=== PATIENT | female | born 1945 | race Caucasian/White ===

== ENCOUNTER 2019-09-12 13:50 | Outpatient (CLI) | payer MEDICARE, SELFPAY ==
--- NOTE | ~2019-09-12 | XR_ITS ---
EXAMINATION: XR shoulder LT min 2V DATE: 09/12/2019 14:14 INDICATION: Left upper arm pain. TECHNIQUE: 4 views of left shoulder were obtained. COMPARISON: None. FINDINGS: Bone alignment is normal. No fracture. There is mild osteoarthritis of glenohumeral joint a nd acromioclavicular joint. IMPRESSION: 1. Mild polyarticular osteoarthritis. Reviewed, dictated and finalized at location E.
== END 2019-09-12 13:51 | disposition home or self-care (01) ==
PROVIDERS: PCP Family Medicine; Visit Provider Family Medicine
DX: M79.602 Pain in left arm (principal); M19.012 Primary osteoarthritis, left shoulder
CPT/HCPCS: 73030

== ENCOUNTER 2020-09-17 13:25 | Outpatient (CLI) | payer MEDICARE, SELFPAY ==
--- NOTE | ~2020-09-17 | XR_ITS ---
XR lumbar spine 2-3V 09/17/2020 13:48 Indication: Chronic low back pain Procedure: 3 views lumbar spine Comparison: 12/08/2015 Findings: Mild dextrocurvature of the lumbar spine centered at L4. There is disc narrowing and endpla te hypertrophy at all lumbar levels. There is moderate-severe multilevel facet hypertrophy. No acute fracture or traumatic malalignment. Stable mild superior endplate compression deformity of L1, chroni c. There is atherosclerosis. Impression: 1: Severe lumbar spondylosis. 2: Mild chronic superior endplate compression deformity of L1. Reviewed, dictated and finalized at location A. Impression: 1: Severe lumbar spondylosis. 2: Mild chronic superior endplate compression deformity of L1.
== END 2020-09-17 13:26 | disposition home or self-care (01) ==
LOC: ANHIMG 13:33
PROVIDERS: PCP Family Medicine; Visit Provider Family Medicine
DX: M47.816 Spondylosis without myelopathy or radiculopathy, lumbar region (principal)
CPT/HCPCS: 72100

== ENCOUNTER → 2020-12-30 11:25 | Outpatient (CLI) | payer MEDICARE, SELFPAY ==
--- NOTE | ~2020-12-30 | US_ITS ---
EXAMINATION: US thyroid DATE: 12/30/2020 11:58 INDICATION: Hypothyroidism, unspecified. TECHNIQUE: Multiple ultrasound images of the thyroid were obtained. COMPARISON: Ultrasound 10/13/2017 FINDINGS: The right thyroid lobe measures 4.3 x 2.0 x 1.4 cm. The left thyroid lobe measures 3.8 x 1.7 x 1.4 c m. In the left thyroid lobe, there is a 5 mm solid, very hypoechoic, gjovc-slma-tpgf nodule with smo oth margin without echogenic foci (TI-RADS TR4). In the right thyroid lobe, there is a 5 mm solid, hy poechoic, tzyeq-feef-hakg nodule with smooth margin without echogenic foci (TR4). In the right thyroi d lobe, there is a 7 mm solid, hypoechoic, acmic-xefr-ztew nodule with lobulated margin without echog enic foci (TR4). IMPRESSION: 1. Small thyroid nodules, likely not clinically significant. No follow-up is needed. Reviewed, dictated and finalized at location A. IMPRESSION: 1. Small thyroid nodules, likely not clinically significant. No follow-up is ne eded.
== END ==
PROVIDERS: Visit Provider Internal Medicine Endocrinology, Diabetes & Metabolism
DX: E03.9 Hypothyroidism, unspecified (principal); M85.80 Other specified disorders of bone density and structure, unspecified site; E04.2 Nontoxic multinodular goiter
CPT/HCPCS: 76536

== ENCOUNTER → 2021-03-01 12:52 | Outpatient (CLI) | payer MEDICARE, SELFPAY ==
--- NOTE | ~2021-03-01 | DEXA_ITS ---
Bone Density Report Name: Idania Feliciano Age: 75 Sex: Female Ethnicity: White Date of : 1945 Indication: postmenopausal; screening for osteoporosis; height loss; inflammatory bowel disease; prior fracture; hysterectomy; Referring Provider: Veronica Beal Study: Bone densitometry was performed. Exam Date: March 01, 2021 Accession number: [id number] Bone Density: Region BMD T-score Z-score Classification AP Spine (L1, L2) 1.216 2.2 4.5 Normal Femoral Neck (Left) 0.710 -1.3 0.9 Osteopenia Total Hip (Left) 0.935 -0.1 1.8 Normal Femoral Neck (Right) 0.652 -1.8 0.3 Osteopenia Total Hip (Right) 0.859 -0.7 1.1 Normal Total Hip Mean 0.897 -0.4 1.5 Normal World Health Organization criteria for BMD impression classify patients as: Normal (T-score at or above -1.0), Osteopenia (T-score between -1.0 and -2.5), or Osteoporosis (T-score at or below -2.5). 10-year Fracture Risk: FRAX not reported because: Prior hip or vertebral fracture Treated for osteoporosis Clinical Information Provided by Patient: Have had a previous hip or vertebral fracture Has had a low trauma fracture Is being treated for osteoporosis Has used the following medications: HRT (i.e. estrogen/hormone therapy), Vitamin D, Calcium Has the following medical conditions: Inflammatory bowel diseases, Hysterectomy, Hx of Leukemia Patient maximum height was 67.5 Menopause Age: 45 Drinks caffeinated beverages Onset of menses at age 16 Number of children 3 Impression: The patient has low bone mass, based on the Right Femoral Neck T-score. The patient has risk factors, including: previous fracture. Discussion: It is important to ask patients whether they are taking their medications and to encourage continued and appropriate compliance with their osteoporosis therapies to reduce fracture risk. It is also important to review their risk factors and encourage appropriate calcium and vitamin D intakes, exercise, fall prevention and other lifestyle measures. Follow-Up: Consider a repeat BMD and Vertebral Fracture Assessment (VFA) exam in 2 years or sooner if medically necessary, to reassess this patient's status. Reported by: CHRIS on 03/01/2021 1:57:00 PM. Reviewed, dictated and finalized at location Jayy SALINAS
== END ==
PROVIDERS: PCP Family Medicine; Visit Provider Internal Medicine Endocrinology, Diabetes & Metabolism
DX: M85.88 Other specified disorders of bone density and structure, other site (principal); E03.9 Hypothyroidism, unspecified; E04.1 Nontoxic single thyroid nodule
CPT/HCPCS: 77080

== ENCOUNTER 2021-07-02 07:23 | Emergency (ER) | payer MEDICARE, SELFPAY ==
--- NOTE | ~2021-07-02 | XR_ITS ---
EXAMINATION: XR elbow LT min 3V DATE: 07/02/2021 08:16 INDICATION: Left elbow pain and swelling. TECHNIQUE: 4 views of left elbow were obtained. COMPARISON: None. FINDINGS: Bone alignment is normal. No fracture. There is mild elbow joint osteoarthritis. There is a n enthesophyte at lateral humeral epicondyle. There is no elbow joint effusion. IMPRESSION: 1. Mild elbow joint osteoarthritis. Reviewed, dictated and finalized at location A. 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
--- NOTE | ~2021-07-02 | CT_ITS ---
EXAMINATION: CT abdomen pelvis w con DATE: 07/02/2021 09:00 INDICATION: Left lower quadrant abdominal pain. TECHNIQUE: Computed tomography (CT) of the abdomen and pelvis was performed with 100 mL Omnipaque 350 intravenous contrast. Automated exposure control and iterative reconstruction technique were employe d. The dose-length product was 1117.34 mGy-cm. COMPARISON: CT abdomen and pelvis 02/20/2016 FINDINGS: The visualized portions of the lung bases demonstrate mild atelectasis. There are 2 chronic nodules in right middle lobe with the larger measuring 5 mm, likely benign. No pleural effusion. The heart size is normal. No pericardial effusion. There is a small sliding hiatal hernia. The liver, ga llbladder, spleen, pancreas, adrenal glands, and kidneys are normal. There are scattered diverticula in the colon. There is fat stranding around a diverticulum of sigmoid colon, consistent with divertic ulitis. There are no dilated loops of bowel. The appendix is normal. There are no pathologically enla rged lymph nodes. There is no free intraperitoneal fluid. There is lumbar dextrocurvature and severe spondylosis. There is a chronic compression fracture of L1. IMPRESSION: 1. Mild acute sigmoid diverticulitis. No perforation or abscess. 2. Small sliding hiatal hernia. Reviewed, dictated and finalized at location A. 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
[2021-07-02 07:28] VITALS: BP 148/104; PULSE 105; RESP 18; TEMP 36.1; O2SAT 97
[2021-07-02 08:13] LABS: Basophils Absolute Auto 0.1 K/mm3 (0.0-0.1); Basophils Percent Auto 0.8 % (0.2-1.2); Eosinophils Absolute Auto 0.4 K/mm3 (0-0.3); Eosinophils Percent Auto 6.1 % (0-4.4); Hematocrit 40.6 % (37.0-47.0); Hemoglobin 13.4 g/dL (12.0-15.0); Immature Granulocyte Absolute 0.03 K/mm3 (0.00-0.031); Immature Granulocyte Percent A 0.5 % (0-0.5); Lymphocytes Absolute Auto 1.25 K/mm3 (0.9-3.2); Mean Corpuscular Hemoglobin 30.6 pg (26-34); Mean Corpuscular Volume 92.7 fl (80-100); Mean Platelet Volume 9.6 fl (7.4-10.4); Monocytes Absolute Auto 0.6 K/mm3 (0.1-0.6); Monocytes Percent Auto 8.8 % (2.6-8.5); Neutrophils Percent Auto 63.8 % (45.5-73.1); Platelet Count Result 318 k/mm3 (150-375); Red Blood Count 4.38 M/mm3 (4.2-5.4); Red Cell Distribution Width 12.5 % (11.5-14.5); White Blood Count 6.3 K/mm3 (4.5-10.0)
[2021-07-02 08:24] LABS: Alanine Aminotransferase 17 U/L (4-35); Albumin Level 3.7 g/dL (3.5-5.1); Alkaline Phosphatase 66 U/L (38-126); Anion Gap 3 mmol/L (8-16); Aspartate Amino Transferase 22 U/L (14-36); Bilirubin,Total 0.4 mg/dL (0.2-1.3); Blood Urea Nitrogen 10 mg/dL (7-17); Calcium 8.9 mg/dL (8.4-10.2); Carbon Dioxide 30 mmol/L (22-30); Chloride 103 mmol/L (98-107); Estimated CRCL calculation 60 ml/min; Estimated Glomerular Filt Rate > 60; Glucose 109 mg/dL (65-110); Lipase 38 U/L (23-300); Potassium 4.7 mmol/L (3.4-5.0); Sodium 136 mmol/L (137-145)
[2021-07-02] MEDS: SODIUM CHLORIDE 0.9% IV 1,000 ML 999 ML IV CONT (08:36)
[2021-07-02] MEDS: MORPHINE SULFATE (*CRX) 4 MG/ML INJ IV PUSH (08:37)
[2021-07-02] MEDS: ONDANSETRON INJ 4 MG/2 ML VIAL IV PUSH (08:37)
--- NOTE | 2021-07-02 10:39 | ED.GENADULT ---
HPI - General Adult General Chief complaint: Back Pain/Injury Stated complaint: BACK PAIN Time Seen by Provider: 07/02/21 07:35 History of Present Illness HPI narrative: Patient is a 76-year-old female who presents ER with left-sided abdominal pain. Sharp and rating to left back. Intermittent over the last 2 weeks with a couple days of resolution. It returned 3 days ago and has possibly worsened. Cannot move without having pain. Has history of diverticulitis. No diarrhea or fevers or chills or sweats. Has not been on any antibiotics. Patient also reports some mild elbow pain after lifting a heavy bag last week. Has some chronic swelling to the area but also feels like it is larger than typical. Maintains full range of motion. No numbness or tingling. Related Data Home Medications Medication Instructions Recorded Confirmed ascorbic acid (vitamin C) 1,000 mg 1,000 mg PO Q12H 05/06/19 10/14/20 tablet,extended release cholecalciferol (vitamin D3) 100 4,000 unit PO DAILY 05/06/19 10/14/20 mcg (4,000 unit) capsule chromium picolinate 400 mcg tablet 400 mcg PO DAILY 05/06/19 10/14/20 dextrin 3 gram/3.5 gram oral powder 3 gm PO TID 05/06/19 10/14/20 melatonin 5 mg disintegrating mg PO 05/06/19 10/14/20 tablet milk thistle 150 mg capsule 150 mg PO BID 05/06/19 10/14/20 omega 1-flk-faz-fish oil 1,000 mg 1 cap PO DAILY 05/06/19 10/14/20 (120 mg-180 mg) capsule omeprazole magnesium 20 mg 20 mg PO DAILY 05/06/19 10/14/20 tablet,delayed release vit B complex 100 combo no.2 100 tablet PO 05/06/19 10/14/20 mg tablet,extended release zinc acetate 50 mg (zinc) capsule 50 mg PO DAILY 05/06/19 10/14/20 calcium carbonate 1,000 tablet PO 06/10/19 10/14/20 mg-magnesium hydroxide 200 mg chewable tablet cetirizine 10 mg tablet 5 mg PO DAILY PRN 06/10/19 10/14/20 flaxseed oil 1,000 mg capsule 1,000 mg PO DAILY 06/10/19 10/14/20 loratadine 10 mg capsule 10 mg PO DAILY 06/10/19 10/14/20 mecobalamin (vitamin B12) 1,000 1,000 mcg SUBLINGUAL DAILY 06/10/19 10/14/20 mcg disintegrating tablet,sublingual aspirin 500 mg tablet 500 mg PO DAILY 07/13/20 10/14/20 coenzyme Q10 100 mg capsule 100 mg PO DAILY 07/13/20 10/14/20 lactobacillus combination no.9 4 4,000 mmu cells PO DAILY 07/13/20 10/14/20 billion cell capsule olive leaf extract 250 mg capsule 500 mg PO DAILY cap 07/13/20 10/14/20 Allergies Allergy/AdvReac Type Severity Reaction Status Date / Time bee venom protein (honey bee) Allergy Unknown Unknown Verified 07/13/20 14:56 ciprofloxacin Allergy Unknown Unknown Verified 07/13/20 14:56 codeine Allergy Unknown Unknown Verified 07/13/20 14:56 hydrocodone Allergy Unknown Unknown Verified 07/13/20 14:56 metronidazole Allergy Unknown Rash Verified 07/13/20 14:56 Penicillins Allergy Unknown Skin Verified 07/13/20 14:56 irritation levothyroxine AdvReac Severe palpitation Verified 07/13/20 14:56 s NKFA Allergy Unknown Unknown Uncoded 07/13/20 14:56 Review of Systems Review of Systems: All systems reviewed & are unremarkable except as noted in HPI and below Constitutional: Constitutional: Denies chills, Denies fever(s) and Denies weakness ENT: Denies nasal congestion and Denies sore throat Cardiovascular: Cardiovascular: Denies chest pain, Denies rapid heart rate and Denies radiating jaw, neck or arm pain Respiratory: Respiratory: Denies cough and Denies dyspnea Gastrointestinal: Gastrointestinal: Reports abdominal pain, Denies diarrhea, Denies nausea and Denies vomiting Musculoskeletal: Musculoskeletal: Reports back pain, Reports arthralgias, Reports joint swelling and Denies muscle cramps Neurologic: Denies focal weakness and Denies numbness PMFSH Past Medical History Medical History (Updated 07/02/21 @ 10:40 by Ha Bernstein MD) CML in remission Diverticulosis Hyperlipidemia Hypertension Hypothyroidism Prediabetes Surgical History Surgical History (Reviewed 07/13/20 @ 17:05 by Waqar Ohara
[2021-07-02 10:50] VITALS: BP 149/80; PULSE 80; RESP 18; O2SAT 96
== END 2021-07-02 10:51 | disposition home or self-care (01) ==
PROVIDERS: Emergency Provider Emergency Medicine; PCP Family Medicine
DX: K57.32 Diverticulitis of large intestine without perforation or abscess without bleeding (principal); C92.11 Chronic myeloid leukemia, BCR/ABL-positive, in remission; R78.5 Finding of other psychotropic drug in blood; I10 Essential (primary) hypertension; E03.9 Hypothyroidism, unspecified; R73.03 Prediabetes; M19.022 Primary osteoarthritis, left elbow; K44.9 Diaphragmatic hernia without obstruction or gangrene; Z79.82 Long term (current) use of aspirin
CPT/HCPCS: 36415; 73080; 74177; 80053; 83690; 85025; 96361; 96374; 96375; 99284; J2270; J2405; J7030; Q9967

== ENCOUNTER 2021-07-07 09:50 | Outpatient (CLI) | payer MEDICARE, SELFPAY ==
--- NOTE | ~2021-07-07 | XR_ITS ---
XR humerus LT DATE: 07/07/2021 10:05 INDICATION: Left arm midshaft pain, anterior bruising following lifting a heavy object TECHNIQUE: AP and lateral projections, 3 total views COMPARISON: 07/02/2021 left elbow FINDINGS: There is osteopenia. No fracture or dislocation, periosteal reaction or bone destruction of the left humerus. Normal alignment of the acromioclavicular, glenohumeral and elbow joints. There is evidence of rotato r cuff atrophy. IMPRESSION: No fracture or dislocation Osteopenia Reviewed, dictated and finalized at location A.
== END 2021-07-07 09:51 | disposition home or self-care (01) ==
PROVIDERS: PCP Family Medicine; Visit Provider Physician Assistant
DX: M79.602 Pain in left arm (principal); M85.822 Other specified disorders of bone density and structure, left upper arm
CPT/HCPCS: 73060

== ENCOUNTER 2021-08-23 01:52 | Day surgery (SDC) | payer MEDICARE, SELFPAY ==
[2021-08-10 10:13] VITALS: BMI 32.3
--- NOTE | 2021-08-23 07:20 | WPDGICN ---
Assessment and Plan Assessment and plan (1) Colon cancer screening: Code(s): Z12.11 - Encounter for screening for malignant neoplasm of colon Status: Acute Assessment and Plan: Colonoscopy with possible biopsy or polypectomy or cautery or injection of substances. (2) Diverticulitis: Code(s): K57.92 - Diverticulitis of intestine, part unspecified, without perforation or abscess without bleeding Status: Acute GI Consult Note Consult date/time: 08/23/21 07:20 HPI: Idania Feliciano is a 76 year old female Who was recently seen in the emergency room with left lower quadrant abdominal pain. CT scan did show evidence of diverticulitis. She was treated with antibiotics But had a reaction to them. She has however improved.. She states she has had previous episodes of diverticulitis. Review of Systems Review of Systems: All systems reviewed & are unremarkable except as noted in HPI and below PMFSH Past Medical History Medical History CML in remission Diverticulosis (~2017) GERD (gastroesophageal reflux disease) History of stress test Hyperlipidemia Hypertension Hypothyroidism Prediabetes Surgical History Surgical History S/P CHCAE (total abdominal hysterectomy) Status post open reduction with internal fixation (ORIF) of fracture of ankle Family History Family History Mother Diabetes mellitus Family history of cardiovascular disease Family history of congestive heart failure Family history of diabetes mellitus in first degree relative Family history of heart disease in male family member before age 55 Father Family history of Parkinson's disease Grandparent Family history of congestive heart failure Family history of heart disease in male family member before age 55 Sibling Family history of diabetes mellitus in first degree relative Social History Social History Smoking status: Never smoker Second hand tobacco smoke exposure: No Alcohol intake: never Substance use: never Substance use type: does not use Living arrangements: with family Gender identity (if verbalized by the patient): Female Spiritual care concerns: Yes Agree to blood products: No Meds Home Medications and Allergies Home Medications Medication Instructions Recorded Confirmed Type ascorbic acid (vitamin C) 1,000 mg 1,000 mg PO Q12H 05/06/19 08/23/21 History tablet,extended release cholecalciferol (vitamin D3) 100 4,000 unit PO DAILY 05/06/19 08/23/21 History mcg (4,000 unit) capsule chromium picolinate 400 mcg tablet 400 mcg PO DAILY 05/06/19 08/23/21 History dextrin 3 gram/3.5 gram oral powder 3 gm PO TID 05/06/19 08/23/21 History melatonin 5 mg disintegrating 5 mg PO DAILY 05/06/19 08/23/21 History tablet milk thistle 150 mg capsule 150 mg PO BID 05/06/19 08/23/21 History omega 9-fbk-czb-fish oil 1,000 mg 1 cap PO DAILY 05/06/19 08/23/21 History (120 mg-180 mg) capsule omeprazole magnesium 20 mg 20 mg PO DAILY 05/06/19 08/23/21 History tablet,delayed release vit B complex 100 combo no.2 100 1 tablet PO DAILY 05/06/19 08/23/21 History mg tablet,extended release zinc acetate 50 mg (zinc) capsule 50 mg PO DAILY 05/06/19 08/23/21 History calcium carbonate 1,000 1 tablet PO DAILY 06/10/19 08/23/21 History mg-magnesium hydroxide 200 mg chewable tablet cetirizine 10 mg tablet 5 mg PO DAILY PRN 06/10/19 08/23/21 History flaxseed oil 1,000 mg capsule 1,000 mg PO DAILY 06/10/19 08/23/21 History loratadine 10 mg capsule 10 mg PO DAILY 06/10/19 08/23/21 History mecobalamin (vitamin B12) 1,000 1,000 mcg SUBLINGUAL DAILY 06/10/19 08/23/21 History mcg disintegrating tablet,sublingual estradiol 0.05 mg/24 hr semiweekly 1 patch TRANSDERMAL 2XW #8 each
[2021-08-23 10:08] VITALS: BP 147/85; PULSE 101; RESP 18; TEMP 36.2; O2SAT 96
[2021-08-23] MEDS: LACTATED RINGERS 1,000 ML 150 ML IV CONT (10:11)
--- NOTE | 2021-08-23 10:38 | WPDANESEPPF ---
Anes - Initial Pre Proc Eval Procedure: Operation Date: 08/23/21 11:00 Proposed Procedures p Colonoscopy - Syd Kirkpatrick MD Date/Time: 08/23/21 10:38 Surgeon: Syd Kirkpatrick MD Pre Op Diagnosis: diverticulitis Patient Data Age: 76 Gender: F Height: 1.68 m Weight: 87.5 kg Last Vital Signs Temp 97.1 F L 08/23/21 10:08 Pulse 101 H 08/23/21 10:08 Resp 18 08/23/21 10:08 BP 147/85 H 08/23/21 10:08 Pulse Ox 96 08/23/21 10:08 Allergies Allergy/AdvReac Type Severity Reaction Status Date / Time bee venom protein (honey bee) Allergy Unknown Unknown Verified 08/23/21 10:07 ciprofloxacin Allergy Unknown Unknown Verified 08/23/21 10:07 codeine Allergy Unknown Unknown Verified 08/23/21 10:07 hydrocodone Allergy Unknown Unknown Verified 08/23/21 10:07 metronidazole Allergy Unknown Rash Verified 08/23/21 10:07 Penicillins Allergy Unknown Skin Verified 08/23/21 10:07 irritation levothyroxine AdvReac Severe palpitation Verified 08/23/21 10:07 s Home Medications Medication Instructions Recorded Confirmed Type ascorbic acid (vitamin C) 1,000 mg 1,000 mg PO Q12H 05/06/19 08/23/21 History tablet,extended release cholecalciferol (vitamin D3) 100 4,000 unit PO DAILY 05/06/19 08/23/21 History mcg (4,000 unit) capsule chromium picolinate 400 mcg tablet 400 mcg PO DAILY 05/06/19 08/23/21 History dextrin 3 gram/3.5 gram oral powder 3 gm PO TID 05/06/19 08/23/21 History melatonin 5 mg disintegrating 5 mg PO DAILY 05/06/19 08/23/21 History tablet milk thistle 150 mg capsule 150 mg PO BID 05/06/19 08/23/21 History omega 8-vqm-jqb-fish oil 1,000 mg 1 cap PO DAILY 05/06/19 08/23/21 History (120 mg-180 mg) capsule omeprazole magnesium 20 mg 20 mg PO DAILY 05/06/19 08/23/21 History tablet,delayed release vit B complex 100 combo no.2 100 1 tablet PO DAILY 05/06/19 08/23/21 History mg tablet,extended release zinc acetate 50 mg (zinc) capsule 50 mg PO DAILY 05/06/19 08/23/21 History calcium carbonate 1,000 1 tablet PO DAILY 06/10/19 08/23/21 History mg-magnesium hydroxide 200 mg chewable tablet cetirizine 10 mg tablet 5 mg PO DAILY PRN 06/10/19 08/23/21 History flaxseed oil 1,000 mg capsule 1,000 mg PO DAILY 06/10/19 08/23/21 History loratadine 10 mg capsule 10 mg PO DAILY 06/10/19 08/23/21 History mecobalamin (vitamin B12) 1,000 1,000 mcg SUBLINGUAL DAILY 06/10/19 08/23/21 History mcg disintegrating tablet,sublingual estradiol 0.05 mg/24 hr semiweekly 1 patch TRANSDERMAL 2XW #8 each 06/10/20 08/23/21 Rx transdermal patch aspirin 500 mg tablet 500 mg PO DAILY 07/13/20 08/23/21 History coenzyme Q10 100 mg capsule 100 mg PO DAILY 07/13/20 08/23/21 History lactobacillus combination no.9 4 4,000 mmu cells PO DAILY 07/13/20 08/23/21 History billion cell capsule olive leaf extract 250 mg capsule 500 mg PO DAILY cap 07/13/20 08/23/21 History ramipril 10 mg capsule 10 mg PO DAILY #90 cap 07/13/20 08/23/21 Rx hydrocodone-acetaminophen 1 tablet PO Q6H PRN #10 tablet 07/02/21 08/23/21 Rx sulfamethoxazole-trimethoprim 1 tablet PO Q12H #20 tablet 07/02/21 08/23/21 Rx [Bactrim DS] Patient hx anesthesia problems: none Family hx anesthesia problems: none Results Review: All pre-operative results and documents have been reviewed as part of the pre-operative evaluation. [facility] Past Medical History Medical History CML in remission Diverticulosis (~2017) GERD (gastroesophageal reflux disease) History of stress test Hyperlipidemia Hypertension Hypothyroidism Prediabetes Surgical History Surgical History S/P CHACE (total abdominal hysterectomy) Status post open reduction with internal fixation (ORIF) of fracture of ankle Family History Family History Mother Diabetes mellitus Family history of cardiovascular disease
[2021-08-23] MEDS: SIMETHICONE ORAL SUSPENSION 20 MG/0.3 ML 30 ML BOTTLE 0.6 ML IRRIGATION (10:59)
[2021-08-23 11:14] VITALS: BP 136/72; PULSE 78; RESP 20; O2SAT 96
[2021-08-23 11:24] VITALS: BP 140/97; PULSE 74; RESP 20; O2SAT 96
[2021-08-23 11:34] VITALS: BP 129/68; PULSE 76; RESP 18; O2SAT 97
== END 2021-08-23 12:04 | disposition home or self-care (01) ==
PROVIDERS: PCP Family Medicine; Visit Provider Internal Medicine Gastroenterology
PROC: 0DJD8ZZ Inspection of Lower Intestinal Tract, Via Natural or Artificial Opening Endoscopic (ICD-10-PCS; CPT 45378; principal; 2021-08-23 11:00)
DX: Z12.11 Encounter for screening for malignant neoplasm of colon (principal); K57.30 Diverticulosis of large intestine without perforation or abscess without bleeding; C92.11 Chronic myeloid leukemia, BCR/ABL-positive, in remission; Z79.82 Long term (current) use of aspirin; K21.9 Gastro-esophageal reflux disease without esophagitis; E03.9 Hypothyroidism, unspecified; I10 Essential (primary) hypertension; E78.5 Hyperlipidemia, unspecified; R73.03 Prediabetes; E66.9 Obesity, unspecified; Z68.31 Body mass index [BMI] 31.0-31.9, adult
CPT/HCPCS: G0121; J2704; J7120

== ENCOUNTER 2021-10-13 11:33 | Outpatient (CLI) | payer MEDICARE, SELFPAY ==
[2021-10-13 13:47] LABS: Free T4 Free Thyroxine 1.16 ng/mL (0.78-2.19)
[2021-10-15 13:53] LABS: Triiodothyronine T3 Free 2.7 pg/mL (2.3-4.2)
== END 2021-10-13 11:34 | disposition home or self-care (01) ==
LOC: ANHWCLAB 11:35
PROVIDERS: PCP Family Medicine; Referring Provider Internal Medicine Endocrinology, Diabetes & Metabolism; Visit Provider Internal Medicine Endocrinology, Diabetes & Metabolism
DX: E03.9 Hypothyroidism, unspecified (principal); E04.9 Nontoxic goiter, unspecified
CPT/HCPCS: 36415; 84439; 84443; 84481

== ENCOUNTER 2022-05-17 14:32 | Outpatient (CLI) | payer MEDICARE, SELFPAY ==
--- NOTE | ~2022-05-17 | MM_ITS ---
EXAMINATION: MM screening brian BI w shawna HISTORY: Screening mammogram TECHNIQUE: Craniocaudal and mediolateral oblique 3-D tomosynthesis images were obtained and synthetic 2-D images were generated. CAD analysis was submitted and interpreted. COMPARISON: 11/02/2018, 09/02/2015, 03/07/2014 bilateral screening mammogram examinations BREAST PARENCHYMAL COMPOSITION: There are scattered areas of fibroglandular density. FINDINGS: There are scattered bilateral benign appearing calcifications. There is one apparently new cluster of grouped microcalcifications in the inner mid right breast which are indeterminate on this screening examination; diagnostic right mammogram with magnification views is recommended for more de finitive evaluation. Otherwise there is no evidence of suspicious mass, calcification, or architectural distortion to sugg est malignancy in either breast. There has been no other suspicious interval change. IMPRESSION: 1. Indeterminate new grouped microcalcifications in the inner mid right breast 2. Diagnostic right mammogram with magnification views is recommended BI-RADS Category 0: Incomplete: Needs additional imaging evaluation. Reviewed, dictated and finalized at location A. ICE GIRL
== END 2022-05-17 14:33 | disposition home or self-care (01) ==
PROVIDERS: PCP Family Medicine; Visit Provider Family Medicine
DX: Z12.31 Encounter for screening mammogram for malignant neoplasm of breast (principal); R92.8 Other abnormal and inconclusive findings on diagnostic imaging of breast
CPT/HCPCS: 77063; 77067

== ENCOUNTER 2022-06-10 11:09 | Outpatient (CLI) | payer MEDICARE, SELFPAY ==
--- NOTE | ~2022-06-10 | MMUS_ITS ---
EXAMINATION: MM diagnostic mammo unilat RT, US breast RT limited HISTORY: Indeterminate new grouped microcalcifications reported in inner mid right breast on 3 screening mammogram examination TECHNIQUE: ML 3-D tomosynthesis images of the right breast were performed and synthetic 2-D images we re generated. Magnification views of right breast in ML, MLO and CC projections CAD analysis was subm itted and interpreted. High resolution upper inner and lower inner right quadrant breast ultrasound w as performed. COMPARISON: 05/13/2022 bilateral screening mammogram FINDINGS: MAMMOGRAPHIC FINDINGS: Multiple benign-appearing calcifications are scattered in the breast including some arterial calcific ations as well as some probable partially calcified fibroadenomas. The mammographic calcifications of concern reported on 05/13/2022 in the mid to posterior inner mid ri ght breast, likely fibroadenomatous. Ultrasound correlation was performed of the inner half of the ri ght breast, without significant abnormal finding. 6 month follow-up diagnostic right mammogram is rec ommended. ULTRASOUND: No suspicious mass or shadowing is detected. IMPRESSION: 1. Probable benign calcifications 2. 6 month diagnostic mammogram follow-up is recommended BI-RADS category 3, probably benign findings. Reviewed, dictated and finalized at location A. 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 Probable benign calcifications 2. 6 month diagnostic mammogram follow-up is recommended BI-RADS category 3, probably benign findings.
== END 2022-06-10 11:10 | disposition home or self-care (01) ==
PROVIDERS: PCP Family Medicine; Visit Provider Family Medicine
DX: R92.8 Other abnormal and inconclusive findings on diagnostic imaging of breast (principal)
CPT/HCPCS: 76642; 77065

== ENCOUNTER 2022-08-29 16:43 | Emergency (ER) | payer MEDICARE, SELFPAY ==
--- NOTE | ~2022-08-29 | CT_ITS ---
EXAMINATION: CTA chest PE protocol DATE: 08/29/2022 21:08 INDICATION: tachycardia, SOB, ?pulmonary edema TECHNIQUE: Computed tomography angiography (CTA) of the chest was performed with 100 mL Omnipaque-350 intravenous contrast timed to evaluate the pulmonary arteries. Coronal maximum intensity projection 3D-reconstructions were created by the technologist. The dose-length product (DLP) was 375.91 mGy-cm. Automated exposure control and iterative reconstruction technique were employed. COMPARISON: X-ray chest, same date. FINDINGS: Lung parenchyma and airways: Acinar opacities in the left lower lobe. Dependent atelectasis. Mild mot ion artifact. Peribronchial vascular interstitial thickening. Small focus of tree-in-bud opacities in the peripheral right middle lobe. Bilateral lower lobe airway debris. Pleura: Unremarkable. Thoracic inlet, axillae and chest wall: Unremarkable. Thoracic aorta: Mild arch calcification. Mediastinum: Enlarged bilateral hilar and mediastinal lymph nodes. Dilated central pulmonary arteries , as can be seen with pulmonary arterial hypertension. Heart and pericardium: Normal. Coronary artery calcifications: Absent. Upper abdomen: No significant finding. Bones: No acute osseous finding. Pulmonary arteries: Study quality: Adequate. No pulmonary emboli detected. IMPRESSION: No CT evidence of acute pulmonary embolus. Pulmonary opacities likely represent infectious airways disease and/or pneumonitis, likely with a com ponent of aspiration. Mediastinal and bilateral hilar lymphadenopathy. Reviewed, dictated and finalized at location K. IMPRESSION: No CT evidence of acute pulmonary embolus. Pulmonary opacities likely represent infectious airways disease and/or pneumoni tis, likely with a component of aspiration. Mediastinal and bilateral hilar lym phadenopathy.
--- NOTE | ~2022-08-29 | XR_ITS ---
EXAMINATION: XR chest 2V Exam Date/Time: 08/29/2022 18:45 CDT HISTORY: wheezing, cough x 5 days Comparison: 02/28/2014. RESULT: Lines, tubes, and devices: None. Lungs and pleura: Mild reticular opacities and cuffing. Cardiomediastinal silhouette: Stable. Other: No acute osseous or upper abdominal finding. IMPRESSION: Pulmonary opacities may represent mild interstitial edema versus respiratory bronchiolitis Reviewed, dictated and finalized at location K. IMPRESSION: Pulmonary opacities may represent mild interstitial edema versus respiratory br onchiolitis
[2022-08-29 17:04] VITALS: BP 140/90; PULSE 108; RESP 20; TEMP 37.4; O2SAT 97
--- NOTE | 2022-08-29 18:17 | ED.GENADULT ---
HPI - General Adult General Chief complaint: Unspecified Stated complaint: Sore throat Related Data Home Medications Medication Instructions Recorded Confirmed ascorbic acid (vitamin C) 1,000 mg 1,000 mg PO Q12H 05/06/19 08/15/22 tablet,extended release cholecalciferol (vitamin D3) 100 4,000 unit PO DAILY 05/06/19 08/15/22 mcg (4,000 unit) capsule chromium picolinate 400 mcg tablet 400 mcg PO DAILY 05/06/19 08/15/22 dextrin 3 gram/3.5 gram oral 3 gm PO TID 05/06/19 08/15/22 powder (Easy Fiber) melatonin 5 mg disintegrating 5 mg PO DAILY 05/06/19 08/15/22 tablet milk thistle 150 mg capsule 150 mg PO BID 05/06/19 08/15/22 omega 8-fks-ljo-fish oil 1,000 mg 1 cap PO DAILY 05/06/19 08/15/22 (120 mg-180 mg) capsule (Fish Oil) omeprazole magnesium 20 mg 20 mg PO DAILY 05/06/19 08/15/22 tablet,delayed release (Prilosec OTC) vit B complex 100 combo no.2 100 1 tablet PO DAILY 05/06/19 08/15/22 mg tablet,extended release (B-100 Complex ER) zinc acetate 50 mg (zinc) capsule 50 mg PO DAILY 05/06/19 08/15/22 calcium carbonate 1,000 1 tablet PO DAILY 06/10/19 08/15/22 mg-magnesium hydroxide 200 mg chewable tablet cetirizine 10 mg tablet (Zyrtec) 5 mg PO DAILY PRN Allergy Symptoms 06/10/19 08/15/22 mecobalamin (vitamin B12) 1,000 1,000 mcg sublingual DAILY 06/10/19 08/15/22 mcg disintegrating tablet,sublingual aspirin 500 mg tablet 500 mg PO DAILY 07/13/20 08/15/22 coenzyme Q10 100 mg capsule (Co 100 mg PO DAILY 07/13/20 08/15/22 Q-10) lactobacillus combination no.9 4 4,000 mmu cells PO DAILY 07/13/20 08/15/22 billion cell capsule (Adult 50 Plus Probiotic) olive leaf extract 250 mg capsule 500 mg PO DAILY 07/13/20 08/15/22 Anna Glucan Immunition NSC-24 10/13/21 08/15/22 Allergy Formula Beta Carotene BYMOUTH 10/13/21 08/15/22 Hydrolized Collagen 10/13/21 08/15/22 Oil Of Oregano yeast infection BYSCUTH 10/13/21 08/15/22 prevention Sun chlorella BYSCUTH 10/13/21 08/15/22 Allergies Allergy/AdvReac Type Severity Reaction Status Date / Time bee venom protein (honey bee) Allergy Unknown Unknown Verified 08/15/22 13:15 ciprofloxacin Allergy Unknown Rash Verified 08/15/22 13:15 codeine Allergy Unknown Rash Verified 08/15/22 13:15 hydrocodone Allergy Unknown Rash Verified 08/15/22 13:15 metronidazole Allergy Unknown Rash Verified 08/15/22 13:15 Penicillins Allergy Unknown Skin Verified 08/15/22 13:15 irritation levothyroxine AdvReac Severe palpitation Verified 08/15/22 13:15 s PMF Past Medical History Medical History (Updated 08/15/22 @ 13:55 by Lencho Sweeney MD) Allergies Arthritis Blood clotting disorder CML in remission Diverticulosis (~2017) GERD (gastroesophageal reflux disease) History of stress test Hyperlipidemia Hypertension Hypothyroidism IBS (irritable bowel syndrome) Prediabetes Surgical History Surgical History S/P CHACE (total abdominal hysterectomy) Status post open reduction with internal fixation (ORIF) of fracture of ankle Family History Family History (Updated 08/15/22 @ 13:17 by Mercedez Li CMA) Mother Diabetes mellitus Family history of cardiovascular disease Family history of congestive heart failure Family history of diabetes mellitus in first degree relative Family history of heart disease in male family member before age 55 Cerebrovascular accident Father Family history of Parkinson's disease Grandparent Family history of congestive heart failure Family history of heart disease in male family member before age 55 Diabetes mellitus Depression Sibling Family history of diabetes mellitus in first degree relative Social History Social History Smoking status: Never smoker Second hand tobacco smoke exposure: No Alcohol intake: never Substance use: never Substance use type: does not use Living arrangem
--- NOTE | 2022-08-29 18:52 | ED.URI ---
HPI - URI/Sore Throat General Chief Complaint: Upper Respiratory Infection Stated Complaint: Sore throat Time Seen by Provider: 08/29/22 18:31 History of Present Illness HPI Narrative: 77-year-old female here for evaluation of cough, congestion, nasal drainage and sore throat x6 days. Was seen in urgent care, was given cough medicine but states they are not helping. States she has some degree of chronic upper respiratory issues for which she asked her primary to refer her to the ENT. She went to the appointment at the end of July was told she has lots of thick nasal drainage and to use neti pots. States that her cough has been worsening, is productive in nature. Reports some SOB. She denies any chest pain, nausea, vomiting, leg swelling, fevers or chills. Positive sick contacts; patient's friend is sick with similar symptoms. Related Data Home Medications Medication Instructions Recorded Confirmed ascorbic acid (vitamin C) 1,000 mg 1,000 mg PO Q12H 05/06/19 08/15/22 tablet,extended release cholecalciferol (vitamin D3) 100 4,000 unit PO DAILY 05/06/19 08/15/22 mcg (4,000 unit) capsule chromium picolinate 400 mcg tablet 400 mcg PO DAILY 05/06/19 08/15/22 dextrin 3 gram/3.5 gram oral 3 gm PO TID 05/06/19 08/15/22 powder (Easy Fiber) melatonin 5 mg disintegrating 5 mg PO DAILY 05/06/19 08/15/22 tablet milk thistle 150 mg capsule 150 mg PO BID 05/06/19 08/15/22 omega 1-wsz-ejx-fish oil 1,000 mg 1 cap PO DAILY 05/06/19 08/15/22 (120 mg-180 mg) capsule (Fish Oil) omeprazole magnesium 20 mg 20 mg PO DAILY 05/06/19 08/15/22 tablet,delayed release (Prilosec OTC) vit B complex 100 combo no.2 100 1 tablet PO DAILY 05/06/19 08/15/22 mg tablet,extended release (B-100 Complex ER) zinc acetate 50 mg (zinc) capsule 50 mg PO DAILY 05/06/19 08/15/22 calcium carbonate 1,000 1 tablet PO DAILY 06/10/19 08/15/22 mg-magnesium hydroxide 200 mg chewable tablet cetirizine 10 mg tablet (Zyrtec) 5 mg PO DAILY PRN Allergy Symptoms 06/10/19 08/15/22 mecobalamin (vitamin B12) 1,000 1,000 mcg sublingual DAILY 06/10/19 08/15/22 mcg disintegrating tablet,sublingual aspirin 500 mg tablet 500 mg PO DAILY 07/13/20 08/15/22 coenzyme Q10 100 mg capsule (Co 100 mg PO DAILY 07/13/20 08/15/22 Q-10) lactobacillus combination no.9 4 4,000 mmu cells PO DAILY 07/13/20 08/15/22 billion cell capsule (Adult 50 Plus Probiotic) olive leaf extract 250 mg capsule 500 mg PO DAILY 07/13/20 08/15/22 Anna Glucan Immunition [facility] [place]-24 10/13/21 08/15/22 Allergy Formula Beta Carotene BYNJUTH 10/13/21 08/15/22 Hydrolized Collagen 10/13/21 08/15/22 Oil Of Oregano yeast infection BYNJUTH 10/13/21 08/15/22 prevention [facility] 10/13/21 08/15/22 Allergies Allergy/AdvReac Type Severity Reaction Status Date / Time bee venom protein (honey bee) Allergy Unknown Unknown Verified 08/29/22 18:45 ciprofloxacin Allergy Unknown Rash Verified 08/29/22 18:45 codeine Allergy Unknown Rash Verified 08/29/22 18:45 hydrocodone Allergy Unknown Rash Verified 08/29/22 18:45 metronidazole Allergy Unknown Rash Verified 08/29/22 18:45 Penicillins Allergy Unknown Skin Verified 08/29/22 18:45 irritation levothyroxine AdvReac Severe palpitation Verified 08/29/22 18:45 s Review of Systems Review of Systems: Gen: Denies fevers or chills Eyes: Denies eye pain or visual change ENT: Reports congestion Respiratory: Reports cough CV: Denies chest pain or palpitations GI: Denies abdominal pain nausea, emesis or diarrhea : denies burning, urgency, frequency or hematuria Musculoskeletal: Denies back pain or muscle pain Neuro: Denies numbness, tingling, weakness or focal weakness Skin: Denies rash Except as documented, all other systems reviewed and negative PMFSH Past Medical History Medical History Allergies Arthritis Blood clotting disorder CML in remission Diverticu
[2022-08-29] MEDS: LEVALBUTEROL NEB 1.25 MG/3 ML INHALATION (19:06)
[2022-08-29 19:07] VITALS: PULSE 101; RESP 18
[2022-08-29] MEDS: IPRATROPIUM BR 0.02% INH SOLN 0.5 MG/2.5 ML VIAL INHALATION (19:07)
--- NOTE | 2022-08-29 19:21 | ECG_ITS ---
Measurements Intervals [place] Rate: 101 P: 50 CO: 195 QRS: -49 QRSD: 105 T: 93 QT: 314 QTc: 408 Interpretive Statements SINUS TACHYCARDIA FREQUENT ATRIAL PREMATURE COMPLEXES LEFT AXIS DEVIATION CANNOT RULE OUT SEPTAL INFARCT, AGE INDETERMINATE ST-T WAVE ABNORMALITY IN HIGH LATERAL LEADS- CONSIDER ISCHEMIA ABNORMAL ECG NO PREVIOUS ECG AVAILABLE FOR COMPARISON Electronically Signed On 08-30-2022 6:45:46 CDT by Tyson Silva D.O.
[2022-08-29 19:55] LABS: Basophils Absolute Auto 0.1 K/mm3 (0.0-0.1); Basophils Percent Auto 0.6 % (0.2-1.2); Eosinophils Absolute Auto 0.3 K/mm3 (0-0.3); Eosinophils Percent Auto 3.7 % (0-4.4); Hemoglobin 14.2 g/dL (12.0-15.0); Immature Granulocyte Absolute 0.03 K/mm3 (0.00-0.031); Immature Granulocyte Percent A 0.4 % (0-0.5); Lymphocytes Absolute Auto 1.22 K/mm3 (0.9-3.2); Lymphocytes Percent Auto 14.4 % (18.3-44.2); Mean Corpuscular HGB Conc 32.3 g/dl (32-36); Mean Corpuscular Hemoglobin 30.5 pg (26-34); Mean Corpuscular Volume 94.4 fl (80-100); Mean Platelet Volume 10.6 fl (7.4-10.4); Monocytes Percent Auto 11.5 % (2.6-8.5); Neutrophils Absolute Auto 5.9 K/mm3 (1.3-6.7); Neutrophils Percent Auto 69.4 % (45.5-73.1); Platelet Count Result 232 k/mm3 (150-375); Red Blood Count 4.66 M/mm3 (4.2-5.4); Red Cell Distribution Width 12.8 % (11.5-14.5); White Blood Count 8.5 K/mm3 (4.5-10.0)
[2022-08-29 20:03] LABS: Anion Gap 5 mmol/L (8-16); Blood Urea Nitrogen 10 mg/dL (7-17); Calcium 8.5 mg/dL (8.4-10.2); Carbon Dioxide 28 mmol/L (22-30); Chloride 100 mmol/L (98-107); Estimated CRCL calculation 59 ml/min; Estimated Glomerular Filt Rate > 60; Glucose 112 mg/dL (65-110); Potassium 3.7 mmol/L (3.4-5.0); Sodium 133 mmol/L (137-145)
[2022-08-29 20:15] VITALS: BP 154/80; PULSE 112; RESP 26; O2SAT 96
[2022-08-29 20:15] LABS: NT Pro B Type Natriuretic Pept 195 pg/mL (19.9-100); Troponin I < 0.012 ng/mL (0.000-0.034)
[2022-08-29 20:16] LABS: Strep Group A RT-PCR NOT DETECTED (Negative)
[2022-08-29 22:16] VITALS: BP 148/76; PULSE 87; RESP 20; O2SAT 98
== END 2022-08-29 22:19 | disposition home or self-care (01) ==
PROVIDERS: Emergency Provider Physician Assistant; PCP Family Medicine
DX: J18.9 Pneumonia, unspecified organism (principal); R00.0 Tachycardia, unspecified; M19.90 Unspecified osteoarthritis, unspecified site; K21.9 Gastro-esophageal reflux disease without esophagitis; I10 Essential (primary) hypertension; E03.9 Hypothyroidism, unspecified; R06.02 Shortness of breath
CPT/HCPCS: 36415; 71046; 71275; 80048; 83880; 84484; 85025; 87651; 93005; 94640; 99284; Q9967

== ENCOUNTER 2022-12-12 09:10 | Outpatient (CLI) | payer MEDICARE, SELFPAY ==
--- NOTE | ~2022-12-12 | XR_ITS ---
EXAMINATION: XR barium swallow modified DATE: 12/12/2022 09:56 INDICATION: Dysphagia. Difficulty swallowing pills. TECHNIQUE: The patient was given barium-containing material of multiple consistencies to swallow by goran oliveira speech pathologist while I performed fluoroscopy. Dose-area product was 0.771 Gy-cm2. 1.6 minutes fluoroscopy time FINDINGS: Oral Stage: Within normal limits Pharyngeal Phase: Within normal limits Cervical/Esophageal Stage: Cricopharyngeus muscle impression upon the lower cervical esophagus consi stent with cricopharyngeus muscle dysfunction IMPRESSION: Modified esophagram findings as above. Please refer to the speech therapy report for [facility]. Reviewed, dictated and finalized at Location A. Reviewed, dictated and finalized at location A. IMPRESSION: Modified esophagram findings as above. Please refer to the speech t herapy report for specific recommendations.
--- NOTE | 2022-12-12 10:08 | REHSTMBS ---
Assessment and note entered by Zena Mathis, [employer]OCIATE Modified Barium Swallow Evaluation Feeding Type Recommended Oral Food Consistency Regular, Level 7 Liquid Consistency Thin (0) ST Clinical Summary MODIFIED BARIUM SWALLOW STUDY This patient was seen for a Modified Barium Swallow study at the request of her physician, Dr. Goldberg. Patient reports a history of sinus issues and gastroesophageal reflux disease (GERD). She states that for quite some time she has been having occasional difficulty swallowing items, mostly medications, requiring her to spit or cough up the medication and attempt to swallow again. Today the patient was viewed in the lateral position to the level of C5/C6. She was presented with one small sip of thin liquid contrast medium per spoon, then uncontrolled contrast medium per cup, and then per straw, pudding mixed with semi- solid contrast medium per spoon, and then both cracker pieces and fruit pieces in syrup, both coated with the pudding mixture. She was also presented with a round barium pill with water. On each presentation, swallows were elicited quickly and efficiently without any pharyngeal residue after each swallow and with no evidence of penetration or aspiration. The barium pill smoothly moved through the pharynx and into the esophagus. Of note was a concern at the level of the cricopharyngeus requiring material to do what appeared to be as go around a tight cricopharyngeus muscle and this should be explored further by a transporter driver ( upper GI doctor ) as this may be interfering with her ability to swallow pills and other hard consistencies. Results indicate patient may remain on a regular diet with regular liquids. She was instructed in the use of safe swallowing techniques and gastroesophageal guidelines. No further Speech Therapy is indicated.
== END 2022-12-12 09:11 | disposition home or self-care (01) ==
LOC: ANHIMG 09:12
PROVIDERS: PCP Family Medicine; Visit Provider Internal Medicine Critical Care Medicine
DX: R05.3 Chronic cough (principal)
CPT/HCPCS: 36415; 86331; 86606; 86609; 87015; 87070; 87102; 87106; 87116; 87205; 87206; 92611

== ENCOUNTER 2022-12-16 11:47 | Outpatient (RCR) | payer MEDICARE, SELFPAY | END 2023-03-14 23:59 | disposition home or self-care (01) | LOC: ANHLAB 11:47 | PROVIDERS: PCP Family Medicine; Visit Provider Internal Medicine Critical Care Medicine | DX: R05.3 Chronic cough (principal) | CPT/HCPCS: 87015; 87070; 87102; 87106; 87116; 87205; 87206 ==

== ENCOUNTER 2022-12-30 12:17 | Outpatient (CLI) | payer MEDICARE, SELFPAY ==
--- NOTE | 2023-01-02 10:34 | WPDPFTINT ---
PFT Procedure Performed PFT Procedure Performed Spirometry with Pre/Post Bronchodilator Plethysmography (Lung Vol) Diffusing Cap (DLCO) Flow Vol Loop PFT Interpretation Lung volumes were measured with the body plethysmography method. The diminished expiratory reserve volume is related to obesity. The remaining lung volumes are unremarkable. Spirometry showed normal expiratory flow rates and a normal FEV1 to FVC ratio 74%. Following administration of a bronchodilator there was no significant increase in the expiratory flow rates. Lung diffusion capacity is within the normal range at 94% predicted. The flow volume loop is unremarkable. Impression: Spirometry, lung volumes, and lung diffusion capacity all within the normal range.
--- NOTE | 2023-01-02 10:35 | WPDSIXMINUTE ---
Six Minute Walk Procedure Procedure Performed Pulmonary Stress Test (6 min walk) Six Minute Walk Six Minute Walk: This 6 minute walk test was carried out with the patient breathing ambient air. The baseline pre-walk oxyhemoglobin saturation was 96%. The patient walked 274 m with no stops during testing. During the walk the oxyhemoglobin saturation remained in the range of 91% to 98%. The perceived dyspnea on the Edson scale was 1 at baseline and increased to 2 at the end of testing. Impression: No evidence of oxyhemoglobin desaturation on this testing.
== END 2022-12-30 12:18 | disposition home or self-care (01) ==
PROVIDERS: PCP Family Medicine; Visit Provider Internal Medicine Critical Care Medicine
DX: R06.02 Shortness of breath (principal); R05.3 Chronic cough
CPT/HCPCS: 94060; 94618; 94726; 94729

== ENCOUNTER 2023-03-08 15:34 | Outpatient (CLI) | payer MEDICARE, SELFPAY ==
--- NOTE | ~2023-03-08 | DEXA_ITS ---
Bone Density Report Name: DEVANG BECERRA Age: 77 Sex: Female Ethnicity: White Date of : 1945 Indication: postmenopausal; screening for osteoporosis; height loss; prior fracture; cancer; hysterectomy; Referring Provider: ALISON LEONARD Study: Bone densitometry was performed. Exam Date: March 08, 2023 Accession number: [id number] Bone Density: Region BMD T-score Z-score Classification AP Spine(L1, L2) 1.224 2.2 4.6 Normal Femoral Neck (Left) 0.661 -1.7 0.5 Osteopenia Total Hip (Left) 0.910 -0.3 1.7 Normal Femoral Neck (Right) 0.646 -1.8 0.4 Osteopenia Total Hip (Right) 0.826 -0.9 1.0 Normal Total Hip Mean 0.868 -0.6 1.4 Normal World Health Organization criteria for BMD impression classify patients as: Normal (T-score at or above -1.0), Osteopenia (T-score between -1.0 and -2.5), or Osteoporosis (T-score at or below -2.5). 10-year Fracture Risk(1): Major Osteoporotic Fracture 19% Hip Fracture 4.2% Reported Risk Factors: [place] (), Neck BMD=0.646, BMI=36.2, previous fracture (1) FRAX(R) Version 3.08. Fracture probability calculated for an untreated patient. Fracture probability may be lower if the patient has received treatment. Previous Exams: Region Exam Age BMD T-score BMD Change BMD Change Date g/cm2 vs Baseline vs Previous AP Spine (L1-L2) 03/08/2023 77 1.224 2.2 0.043 (3.7%)* 0.043 (3.7%)* 11/02/2018 73 1.181 1.8 Total Hip(Left) 03/08/2023 77 0.910 -0.3 -0.055 (-5.7%) -0.055 (-5.7%) 11/02/2018 73 0.966 0.2 Total Hip(Right) 03/08/2023 77 0.826 -0.9 -0.041 (-4.7%) -0.041 (-4.7%) 11/02/2018 73 0.867 -0.6 *Denotes significance at 95% confidence level, LSC for AP Spine = 0.022 g/cm2, LSC for Total Hip = 0.027 g/cm2 Clinical Information Provided by Patient: Has had a low trauma fracture Has used the following medications: Vitamin D Has the following medical conditions: Cancer, Hysterectomy Patient maximum height was 67.5 Menopause Age: 48 No regular weight bearing exercise Onset of menses at age 16 Number of children 3 Impression: The patient has low bone mass, based on the Right Femoral Neck T-score. The patient has an estimated ten-year risk of hip fracture of 4.2% and an estimated ten-year risk of major fracture of 19%, based on the WHO FRAX algorithm. The patient has risk factors, including: previous fracture. The BMD for the Total Hip(Left) decreased, changing by -
== END 2023-03-08 15:35 | disposition home or self-care (01) ==
LOC: ANHIMG 15:40
PROVIDERS: PCP Family Medicine; Visit Provider Internal Medicine
DX: M85.80 Other specified disorders of bone density and structure, unspecified site (principal); Z13.820 Encounter for screening for osteoporosis; Z78.0 Asymptomatic menopausal state
CPT/HCPCS: 77080

== ENCOUNTER 2023-03-29 12:22 | Outpatient (CLI) | payer MEDICARE, SELFPAY ==
--- NOTE | ~2023-03-29 | MM_ITS ---
EXAMINATION: MM diagnostic brian BI w shawna HISTORY: Six-month follow-up for probably benign right breast calcifications TECHNIQUE: Craniocaudal, mediolateral, and mediolateral oblique 3-D tomosynthesis images of the breas ts were performed and synthetic 2-D images were generated. Magnification views of the right breast ar e also obtained. CAD analysis was submitted and interpreted. COMPARISON: 06/10/2022, 05/17/2022, 11/02/2018 BREAST PARENCHYMAL COMPOSITION: There are scattered areas of fibroglandular density. FINDINGS: Left breast: Scattered benign-appearing calcifications are present. No suspicious mass, silvestre cification, or architectural distortion are identified. Right breast: There are grouped calcifications in the posterior third of the inner breast at the 3:00 location, 10 cm from the nipple which appear to be stable and dystrophic in morphology. There has be en no suspicious interval change. No suspicious mass or architectural distortion are identified. IMPRESSION: 1. Probably benign right breast calcifications. 2. Recommend 6 month follow-up right diagnostic mammogram. BI-RADS category 3, probably benign findings. Reviewed, dictated and finalized at location A. IO PRODUCER
== END 2023-03-29 12:23 | disposition home or self-care (01) ==
LOC: ANHIMG 12:23
PROVIDERS: PCP Family Medicine; Visit Provider Family Medicine
DX: R92.8 Other abnormal and inconclusive findings on diagnostic imaging of breast (principal)
CPT/HCPCS: 77062; 77066; G0279

== ENCOUNTER 2023-09-29 12:43 | Outpatient (CLI) | payer MEDICARE, SELFPAY ==
--- NOTE | ~2023-09-29 | MM_ITS ---
EXAMINATION: MM diagnostic brian RT w shawna HISTORY: Follow-up right breast calcifications TECHNIQUE: Additional 3-D tomosynthesis images of the right breast were performed and synthetic 2-D i mages were generated. CAD analysis was submitted and interpreted. COMPARISON: Comparison to multiple prior studies sequentially, with oldest reviewed study dated 09/01. BREAST PARENCHYMAL COMPOSITION: Not dense: There are scattered areas of fibroglandular density. FINDINGS: Scattered clusters of calcifications in the right breast are stable compared with 3. No new masses or architectural distortion. IMPRESSION: 1. Stable likely benign right breast calcifications. 2. Recommend 6 month follow-up diagnostic bilateral mammogram BI-RADS category 3, probably benign findings. Reviewed, dictated and finalized at location B.
== END 2023-09-29 12:44 | disposition home or self-care (01) ==
PROVIDERS: PCP Family Medicine; Visit Provider Family Medicine
DX: R92.8 Other abnormal and inconclusive findings on diagnostic imaging of breast (principal)
CPT/HCPCS: 77061; 77065; G0279

== ENCOUNTER 2023-11-22 06:38 | Emergency (ER) | payer MEDICARE, SELFPAY ==
--- NOTE | ~2023-11-22 | CT_ITS ---
EXAMINATION: CT soft tissue neck w con DATE: 11/22/2023 08:22 INDICATION: Left neck swelling. Dysphagia. TECHNIQUE: Computed tomography (CT) of the neck was performed with 75 mL Omnipaque-350 intravenous co ntrast. Automated exposure control and iterative reconstruction technique were employed. The dose-rosangela gth product was 405.10 mGy-cm. COMPARISON: None FINDINGS: There are no pathologically enlarged lymph nodes. There is plaque in the proximal internal carotid arteries is 0% stenosis relative to normal distal artery lumen diameters. The pharynx and lar ynx are normal. There is mild mucosal thickening in the paranasal sinuses. There is rightward deviati on of the nasal septum. The mastoid air cells are normal. Artifact from respirations of the teeth dec reases sensitivity for evaluation of the teeth. IMPRESSION: 1. No etiology for the patient's symptoms. Reviewed, dictated and finalized at location A.
[2023-11-22 06:44] VITALS: BP 160/99; PULSE 99; RESP 17; TEMP 36.7; O2SAT 97
--- NOTE | 2023-11-22 07:02 | ED.DENTAL ---
HPI - Dental/Oral General Chief complaint: Dental/Oral Stated complaint: throat hurts on left side, teeth hurt Time Seen by Provider: 11/22/23 06:57 Source: patient and family Mode of arrival: ambulatory Limitations: no limitations History of Present Illness HPI Narrative: Patient presents with left-sided facial pain, teeth hurting, and neck/jaw pain and swelling. This has been going on for months but seems to be getting worse. She denies any fevers. She has been seen several times by her dentist in the past 2 years and has been on recurrent rounds of antibiotics. She is on oral surgeon 1-2 weeks ago in [address] [place] [address]. Unclear diagnosis or plan. She also she has dry mouth. She has dysphagia and odynophagia which is slightly acute on chronic. She is scheduled for a GI procedure with Dr. Do for eye as in November for esophageal stretching. She has also been seeing her tab card press operator Dr. Zena Juarez for a history of pneumonitis. No dizziness or weakness in her extremities. She applied embolus all took aspirin which had some slight improvement. Her primary care physician recently left and she currently does not have 1. The nurse practitioners in the practice were booked until the end of November. No dysphonia. Related Data Home Medications Medication Instructions Recorded Confirmed ascorbic acid (vitamin C) 1,000 mg 1,000 mg PO Q12H 05/06/19 11/22/23 tablet,extended release cholecalciferol (vitamin D3) 100 4,000 unit PO DAILY 05/06/19 11/22/23 mcg (4,000 unit) capsule chromium picolinate 400 mcg tablet 400 mcg PO DAILY 05/06/19 11/22/23 dextrin 3 gram/3.5 gram oral 3 gm PO TID 05/06/19 11/22/23 powder (Easy Fiber) melatonin 5 mg disintegrating 5 mg PO DAILY 05/06/19 11/22/23 tablet milk thistle 150 mg capsule 150 mg PO BID 05/06/19 11/22/23 omeprazole magnesium 20 mg 20 mg PO DAILY 05/06/19 11/22/23 tablet,delayed release (Prilosec OTC) vit B complex 100 combo no.2 100 1 tablet PO DAILY 05/06/19 11/22/23 mg tablet,extended release (B-100 Complex ER) zinc acetate 50 mg (zinc) capsule 50 mg PO DAILY 05/06/19 11/22/23 cetirizine 10 mg tablet (Zyrtec) 5 mg PO DAILY PRN Allergy Symptoms 06/10/19 11/22/23 aspirin 500 mg tablet 500 mg PO DAILY 07/13/20 11/22/23 coenzyme Q10 100 mg capsule (Co 100 mg PO DAILY 07/13/20 11/22/23 Q-10) lactobacillus combination no.9 4 4,000 mmu cells PO DAILY 07/13/20 11/22/23 billion cell capsule (Adult 50 Plus Probiotic) olive leaf extract 250 mg capsule 500 mg PO DAILY 07/13/20 11/22/23 Anna Glucan Immunition NSC-24 10/13/21 11/22/23 Allergy Formula Hydrolized Collagen 10/13/21 11/22/23 fluticasone propionate 50 1 - 2 spray intranasal BID PRN 10/18/22 11/22/23 mcg/actuation nasal Sinus Symptoms spray,suspension (Flonase Allergy Relief) amino acid-hydrolyzed 100 ea PO DAILY 11/16/22 11/22/23 collagen-whey 15 gram-100 kcal/30 mL oral liquid omega 8-gaj-ihm-fish oil 1,000 mg 1 cap PO DAILY 11/16/22 11/22/23 (120 mg-180 mg) capsule (Fish Oil) vitamin E 100 unit/0.25 mL oral 100 unit PO DAILY 11/16/22 11/22/23 drops Allergies Allergy/AdvReac Type Severity Reaction Status Date / Time doxycycline Allergy Mild Itching Verified 11/22/23 13:13 bee venom protein (honey bee) Allergy Unknown Unknown Verified 11/22/23 13:13 ciprofloxacin Allergy Unknown Rash Verified 11/22/23 13:13 clindamycin Allergy Unknown Rash Verified 11/22/23 13:13 codeine Allergy Unknown Rash Verified 11/22/23 13:13 hydrocodone Allergy Unknown Rash Verified 11/22/23 13:13 metronidazole Allergy Unknown Rash Verified 11/22/23 13:13 Penicillins Allergy Unknown Skin Verified 11/22/23 13:13 irritation sulfamethoxazole Allergy Other Verified 11/22/23 13:13 [From Sulfamethoxazole-Trimethoprim] trimethoprim Allergy Other Verified 11/22/23 13:13 [From Sulfamethoxazole-Trimethoprim] levothyroxine AdvReac Severe palpitation Verified 11/22/23 13:13 s PMFSH P
[2023-11-22] MEDS: dexAMETHasone 2 MG TABLET 10 MG PO (07:18)
[2023-11-22] MEDS: SODIUM CHLORIDE 0.9% IV 1,000 ML 999 ML IV CONT (07:32)
[2023-11-22 07:34] LABS: Basophils Absolute Auto 0.1 K/mm3 (0.0-0.1); Basophils Percent Auto 1.1 % (0.2-1.2); Eosinophils Absolute Auto 0.3 K/mm3 (0-0.3); Hematocrit 44.8 % (37.0-47.0); Hemoglobin 14.6 g/dL (12.0-15.0); Immature Granulocyte Absolute 0.01 K/mm3 (0.00-0.031); Immature Granulocyte Percent A 0.2 % (0-0.5); Lymphocytes Absolute Auto 1.32 K/mm3 (0.9-3.2); Lymphocytes Percent Auto 27.8 % (18.3-44.2); Mean Corpuscular HGB Conc 32.6 g/dl (32-36); Mean Corpuscular Hemoglobin 30.7 pg (26-34); Mean Corpuscular Volume 94.3 fl (80-100); Mean Platelet Volume 10.3 fl (7.4-10.4); Monocytes Absolute Auto 0.4 K/mm3 (0.1-0.6); Monocytes Percent Auto 8.4 % (2.6-8.5); Neutrophils Absolute Auto 2.6 K/mm3 (1.3-6.7); Neutrophils Percent Auto 55.5 % (45.5-73.1); Platelet Count Result 280 k/mm3 (150-375); Red Blood Count 4.75 M/mm3 (4.2-5.4); Red Cell Distribution Width 12.6 % (11.5-14.5); White Blood Count 4.7 K/mm3 (4.5-10.0)
[2023-11-22 07:45] LABS: Anion Gap 9 mmol/L (4-12); Blood Urea Nitrogen 13 mg/dL (7-17); Calcium 8.7 mg/dL (8.4-10.2); Carbon Dioxide 26 mmol/L (22-30); Chloride 101 mmol/L (98-107); Estimated CRCL calculation 52 ml/min; Estimated Glomerular Filt Rate > 60; Glucose 117 mg/dL (65-110); Potassium 4.7 mmol/L (3.4-5.0); Sodium 136 mmol/L (137-145)
[2023-11-22 07:59] LABS: Strep Group A RT-PCR NOT DETECTED (Negative)
[2023-11-22 08:10] LABS: Influenza A QL RT-PCR Negative (Negative); Influenza B QL RT-PCR Negative (Negative); RSV RNA, RT-PCR Negative (Negative); SARS-CoV-2 RNA PCR Negative (Negative)
== END 2023-11-22 08:54 | disposition home or self-care (01) ==
PROVIDERS: Emergency Provider Student in an Organized Health Care Education/Training Program; PCP Family Medicine
DX: M54.2 Cervicalgia (principal); R51.9 Headache, unspecified; K02.9 Dental caries, unspecified; Z20.822 Contact with and (suspected) exposure to COVID-19; C92.11 Chronic myeloid leukemia, BCR/ABL-positive, in remission; I10 Essential (primary) hypertension; E03.9 Hypothyroidism, unspecified; E78.00 Pure hypercholesterolemia, unspecified; E55.9 Vitamin D deficiency, unspecified; J32.9 Chronic sinusitis, unspecified; R73.03 Prediabetes; K58.9 Irritable bowel syndrome, unspecified; M19.90 Unspecified osteoarthritis, unspecified site; Z79.82 Long term (current) use of aspirin
CPT/HCPCS: 36415; 70491; 80048; 85025; 87637; 87651; 96360; 99284; J7030; J8540; Q9967

== ENCOUNTER 2023-12-12 01:03 | Day surgery (SDC) | payer MEDICARE, SELFPAY ==
[2023-11-22 13:21] VITALS: BMI 32.8
[2023-12-12 11:15] VITALS: BP 127/96; PULSE 99; RESP 20; TEMP 35.8; O2SAT 100; BMI 33.7
[2023-12-12] MEDS: LACTATED RINGERS 1,000 ML 150 ML IV CONT (11:24)
--- NOTE | 2023-12-12 11:27 | WPDANESEPPF ---
Anes - Initial Pre Proc Eval Procedure: Operation Date: 12/12/23 12:30 Proposed Procedures p Esophagogastroduodenoscopy - Tc Quezada MD Date/Time: 12/12/23 11:27 Surgeon: Tc Quezada MD Pre Op Diagnosis: Dysphagia unspecified Patient Data Age: 78 Gender: F Height: 1.68 m Weight: 94.9 kg Last Vital Signs Temp 96.5 F L 12/12/23 11:15 Pulse 99 12/12/23 11:15 Resp 20 12/12/23 11:15 BP 127/96 H 12/12/23 11:15 Pulse Ox 100 12/12/23 11:15 O2 Del Method Room Air 12/12/23 11:15 Allergies Allergy/AdvReac Type Severity Reaction Status Date / Time doxycycline Allergy Mild Itching Verified 12/12/23 11:13 bee venom protein (honey bee) Allergy Unknown Unknown Verified 12/12/23 11:13 ciprofloxacin Allergy Unknown Rash Verified 12/12/23 11:13 clindamycin Allergy Unknown Rash Verified 12/12/23 11:13 codeine Allergy Unknown Rash Verified 12/12/23 11:13 hydrocodone Allergy Unknown Rash Verified 12/12/23 11:13 metronidazole Allergy Unknown Rash Verified 12/12/23 11:13 Penicillins Allergy Unknown Skin Verified 12/12/23 11:13 irritation sulfamethoxazole Allergy Other Verified 12/12/23 11:13 [From Sulfamethoxazole-Trimethoprim] trimethoprim Allergy Other Verified 12/12/23 11:13 [From Sulfamethoxazole-Trimethoprim] levothyroxine AdvReac Severe palpitation Verified 12/12/23 11:13 s Home Medications Medication Instructions Recorded Confirmed Type ascorbic acid (vitamin C) 1,000 mg 1,000 mg PO Q12H 05/06/19 11/22/23 History tablet,extended release cholecalciferol (vitamin D3) 100 4,000 unit PO DAILY 05/06/19 11/22/23 History mcg (4,000 unit) capsule chromium picolinate 400 mcg tablet 400 mcg PO DAILY 05/06/19 11/22/23 History dextrin 3 gram/3.5 gram oral 3 gm PO TID 05/06/19 11/22/23 History powder (Easy Fiber) melatonin 5 mg disintegrating 5 mg PO DAILY 05/06/19 11/22/23 History tablet milk thistle 150 mg capsule 150 mg PO BID 05/06/19 11/22/23 History omeprazole magnesium 20 mg 20 mg PO DAILY 05/06/19 11/22/23 History tablet,delayed release (Prilosec OTC) vit B complex 100 combo no.2 100 1 tablet PO DAILY 05/06/19 11/22/23 History mg tablet,extended release (B-100 Complex ER) zinc acetate 50 mg (zinc) capsule 50 mg PO DAILY 05/06/19 11/22/23 History cetirizine 10 mg tablet (Zyrtec) 5 mg PO DAILY PRN Allergy Symptoms 06/10/19 11/22/23 History estradiol 0.05 mg/24 hr semiweekly 1 patch transdermal 2XW #8 ea 06/10/20 11/22/23 Rx transdermal patch aspirin 500 mg tablet 500 mg PO DAILY 07/13/20 11/22/23 History coenzyme Q10 100 mg capsule (Co 100 mg PO DAILY 07/13/20 11/22/23 History Q-10) lactobacillus combination no.9 4 4,000 mmu cells PO DAILY 07/13/20 11/22/23 History billion cell capsule (Adult 50 Plus Probiotic) olive leaf extract 250 mg capsule 500 mg PO DAILY 07/13/20 11/22/23 History ramipril 10 mg capsule 10 mg PO DAILY #90 caps 07/13/20 11/22/23 Rx [place] [facility] [place] 10/13/21 11/22/23 History Allergy Formula Hydrolized Collagen 10/13/21 11/22/23 History albuterol sulfate 90 mcg/actuation 2 inh inhalation Q6H PRN shortness 08/29/22 11/22/23 Rx breath activated powder inhaler of breath #1 ea fluticasone propionate 50 1 - 2 spray intranasal BID PRN 10/18/22 11/22/23 History mcg/actuation nasal Sinus Symptoms spray,suspension (Flonase Allergy Relief) amino acid-hydrolyzed 100 ea PO DAILY 11/16/22 11/22/23 History collagen-whey 15 gram-100 kcal/30 mL oral liquid omega 3-fmc-vrr-fish oil 1,000 mg 1 cap PO DAILY 11/16/22 11/22/23 History (120 mg-180 mg) capsule (Fish Oil) vitamin E 100 unit/0.25 mL oral 100 unit PO DAILY 11/16/22 11/22/23 History drops acetaminophen 500 mg capsule 1,000 mg PO Q6H PRN pain #20 caps 11/22/23 11/22/23 Rx Patient hx anesthesia problems: none Family hx anesthesia problems: none Results Review: All pre-operative results
--- NOTE | 2023-12-12 11:49 | PM.HPGS ---
History of Present Illness History of Present Illness Consent: Risks, benefits, and alternatives have been discussed and questions answered. Patient agrees to proceed with procedure. 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 Colitis Diverticulitis large intestine Diverticulosis (~2017) Dysphagia Essential (primary) hypertension GERD (gastroesophageal reflux disease) Hiatal hernia History of stress test Hyperlipidemia Hypertension Hypothyroidism Hypothyroidism determined by thyroid function test IBS (irritable bowel syndrome) LAD (lymphadenopathy), cervical Menopausal symptoms Multinodular goiter Palpitations Pneumonitis Post-menopausal Prediabetes Pure hypercholesterolemia Superficial thrombophlebitis of right leg Vitamin D deficiency Surgical History Surgical History S/P CHACE (total abdominal hysterectomy) Status post open reduction with internal fixation (ORIF) of fracture of ankle Family History Family History Mother Diabetes mellitus Family history of cardiovascular disease Family history of congestive heart failure Family history of diabetes mellitus in first degree relative Family history of heart disease in male family member before age 55 Cerebrovascular accident Father Family history of Parkinson's disease Grandparent Family history of congestive heart failure Family history of heart disease in male family member before age 55 Diabetes mellitus Depression Sibling Family history of diabetes mellitus in first degree relative Diabetes mellitus Social History Social History Smoking status: Never smoker Second hand tobacco smoke exposure: No Alcohol intake: never Substance use: never Substance use type: does not use Lack of Transportation: No Lack of Food: Never True Current Housing: I Have Housing Concerned About Future Housing: No Difficulty Paying Gas/Electric Bills: No Difficulty Paying for Meds: No Currently Unemployed: No Education: High School Diploma/GED Difficulty w/ Childcare or Family Care: No Living arrangements: with family Occupation/Education: retired Gender identity (if verbalized by the patient): Female Spiritual care concerns: No Agree to blood products: No Meds Home Medications and Allergies Home Medications Medication Instructions Recorded Confirmed Type ascorbic acid (vitamin C) 1,000 mg 1,000 mg PO Q12H 05/06/19 11/22/23 History tablet,extended release cholecalciferol (vitamin D3) 100 4,000 unit PO DAILY 05/06/19 11/22/23 History mcg (4,000 unit) capsule chromium picolinate 400 mcg tablet 400 mcg PO DAILY 05/06/19 11/22/23 History dextrin 3 gram/3.5 gram oral 3 gm PO TID 05/06/19 11/22/23 History powder (Easy Fiber) melatonin 5 mg disintegrating 5 mg PO DAILY 05/06/19 11/22/23 History tablet milk thistle 150 mg capsule 150 mg PO BID 05/06/19 11/22/23 History omeprazole magnesium 20 mg 20 mg PO DAILY 05/06/19 11/22/23 History tablet,delayed release (Prilosec OTC) vit B complex 100 combo no.2 100 1 tablet PO DAILY 05/06/19 11/22/23 History mg tablet,extended release (B-100 Complex ER) zinc acetate 50 mg (zinc) capsule 50 mg PO DAILY 05/06/19 11/22/23 History cetirizine 10 mg tablet (Zyrtec) 5 mg PO DAILY PRN All
[2023-12-12 12:05] VITALS: BP 137/58; PULSE 78; RESP 18; O2SAT 100
[2023-12-12 12:15] VITALS: BP 112/77; PULSE 76; RESP 24; O2SAT 100
[2023-12-12 12:25] VITALS: BP 131/80; PULSE 78; RESP 25; O2SAT 100
== END 2023-12-12 12:35 | disposition home or self-care (01) ==
PROVIDERS: PCP Family Medicine; Referring Provider Internal Medicine Critical Care Medicine; Visit Provider Internal Medicine Gastroenterology
PROC: 0DJ08ZZ Inspection of Upper Intestinal Tract, Via Natural or Artificial Opening Endoscopic (ICD-10-PCS; CPT 43235; principal; 2023-12-12 12:30)
DX: K22.2 Esophageal obstruction (principal); K31.89 Other diseases of stomach and duodenum; I10 Essential (primary) hypertension; K21.9 Gastro-esophageal reflux disease without esophagitis; E03.9 Hypothyroidism, unspecified; R73.03 Prediabetes; K58.9 Irritable bowel syndrome, unspecified; E78.00 Pure hypercholesterolemia, unspecified; E55.9 Vitamin D deficiency, unspecified; J32.4 Chronic pansinusitis; K57.32 Diverticulitis of large intestine without perforation or abscess without bleeding; K57.30 Diverticulosis of large intestine without perforation or abscess without bleeding; I80.01 Phlebitis and thrombophlebitis of superficial vessels of right lower extremity; Z79.82 Long term (current) use of aspirin; Z79.51 Long term (current) use of inhaled steroids; Z98.890 Other specified postprocedural states; Z85.6 Personal history of leukemia; Z86.718 Personal history of other venous thrombosis and embolism; Z82.49 Family history of ischemic heart disease and other diseases of the circulatory system
CPT/HCPCS: 43450; 43239; 88305; J7120

== ENCOUNTER 2024-01-17 14:19 | Outpatient (CLI) | payer MEDICARE, SELFPAY ==
--- NOTE | ~2024-01-17 | CT_ITS ---
EXAMINATION: CT diagnostic chest wo con DATE: 01/17/2024 14:48 INDICATION: R05.3 - Chronic cough TECHNIQUE: Computed tomography (CT) of the chest was performed without intravenous contrast. Addition al 3D reconstructions utilizing coronal maximum intensity projection (MIP) were performed. Automated exposure control and iterative reconstruction technique were employed. The dose-length product was 26 5.71 mGy-cm. COMPARISON: Chest CT dated 08/29/2022 FINDINGS: Mild emphysema. Very small band of linear discoid atelectasis at the posterior segment of the right u pper lobe. Unchanged 9 x 6 mm cavitary nodule in the right middle lobe along the major fissure which likely post infectious in etiology. Couple additional small unchanged regions of peripheral lingular atelectasis/scarring. Prior right lower lobe pneumonia has resolved. There are a few unchanged 4 mm s maller scattered pulmonary nodules. No pulmonary edema or other pulmonary infiltrates or pleural effu adelaida. Heart size normal. Atherosclerotic coronary artery calcification. No pericardial effusion. Smal l sliding-type hernia. Thoracic aorta is normal in caliber. No pathologically enlarged thoracic lymph adenopathy. Visualized upper abdomen is unremarkable. Mild upper thoracic dextrocurvature and mild up per and severe lower lumbar spondylosis. IMPRESSION: 1. Stable appearance of a few small scattered regions of mild atelectasis/scarring. No acute pneumoni a. 2. No interval change in a 9 x 6 mm cavitary right middle lobe nodule and a few additional scattered in bilateral 4 mm or smaller pulmonary nodules likely sequela of prior infection. Reviewed, dictated and finalized at location A. IMPRESSION: 1. Stable appearance of a few small scattered regions of mild atelectasis/scarr ing. No acute pneumonia. 2. No interval change in a 9 x 6 mm cavitary right middle lobe nodule and a few additional scattered in bilateral 4 mm or smaller pulmonary nodules likely seq uela of prior infection.
== END 2024-01-17 14:20 | disposition home or self-care (01) ==
PROVIDERS: PCP Family Medicine; Visit Provider Internal Medicine Critical Care Medicine
DX: R91.8 Other nonspecific abnormal finding of lung field (principal)
CPT/HCPCS: 71250

== ENCOUNTER 2024-03-06 10:49 | Outpatient (CLI) | payer MEDICARE, SELFPAY ==
--- NOTE | ~2024-03-06 | XR_ITS ---
XR chest 2V Ordering provider: Ayse Bradford, [employer]INE[employer] History: 78 years Female with . respiratory tract congestion, coughing up bloody sputum . Comparison: None. FINDINGS: MEDIASTINUM: The cardiac silhouette is not enlarged. LUNGS: No infiltrates, effusions or pneumothorax. OTHER: No free air under the diaphragm. Degenerative changes of the spine. IMPRESSION: No acute cardiopulmonary pathology. Reviewed, dictated and finalized at location A. 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
== END 2024-03-06 10:50 | disposition home or self-care (01) ==
PROVIDERS: PCP Nurse Practitioner Family; Visit Provider Nurse Practitioner Family
DX: R05.9 Cough, unspecified (principal)
CPT/HCPCS: 71046

== ENCOUNTER 2024-08-24 09:43 | Outpatient (CLI) | payer MEDICARE, SELFPAY ==
--- NOTE | ~2024-08-24 | XR_ITS ---
Clinical Indication: Wheezing PA and lateral views of the chest: Comparison: 03/06/2024 Findings: The lungs are clear, without evidence of focal consolidation or pleural effusion. Cardiome diastinal silhouette is within normal limits. Bones and soft tissues are unremarkable. Impression: Normal chest. Reviewed, dictated and finalized at location . Impression: Normal chest.
--- OUTSIDE RECORDS SUMMARY | 2024-08-24 16:08 | XMS_ITS | Data Portability ---
Author Organization Coleen DEAN Address [address] [facility] [place] [address] Assessment Encounter Date Assessment Date Assessment LastModified by Organization Details LastModified Time 03/13/2024 03/13/2024 Will get records from previous PCP and technical program manager . [email or web address] Not available 03/13/2024 19:01:17 Plan of Treatment Reminders Order Date Submit Date Provider Last Modified By Organization Details Last Modified Time Details Appointments None recorded. Lab lipid panel, serum 2023 [facility], [address] [place] [address], [address], [place], [address], 4 10:13:28 CMP, serum or plasma 2023 024 [email or web address], [address] [place] [address], [address], [place], [address], 4 15:40:45 CBC 2023 024 [facility], [address] [place] [address], [address], [place], [address], 4 10:13:33 TSH, ultra-sensi tive, serum 2023 024 [facility], [address] [place] [address], [address], [place], [address], 4 10:13:31 albumin/cre atinine, mass ratio, urine 2023 [facility], [address] [facility], [address], [place], [address], 10:13:26 Referral None recorded. Procedures None recorded. Surgeries None recorded. Imaging None recorded. Medication Orders estradiol 0.05 mg/24 hr weekly transdermal patch 2023 [id number], [address] [place], [place], [id number], 19:04:46 ramipril 10 mg capsule 2023 [place] [facility] #[id number], [address] [place], [place], [id number], 19:04:46 Patient TargetsNo targets recorded. Patient InstructionsNo instructions recorded. Reason for Referral None Reported. Results Created Date Observation Date Name Description Value Unit Range Abnormal Flag Note LastModifiedBy Organization Detail LastModifiedTime 03/25/20 24 03/26/2024 ALBUM IN/CR EATIN INE RATIO ,URIN E creatinine, urine 105.1 mg/dL notest ab. Not Available [facility] ([facility]) [address] [place], [address], 03/26/2024 10:13:26 03/25/20 24 03/26/2024 ALBUM IN/CR EATIN INE RATIO ,URIN E albumin, urine <3.0 ug/mL notest ab. Not Available [facility] ([facility]) [address] [place], [address], 03/26/2024 10:13:26 03/25/20 24 03/26/2024 ALBUM IN/CR EATIN INE RATIO ,URIN E alb/creat ratio <3 Liz l: 0 - 29 Moder ately incre ased: 30 - 300 Sever uziel incre ased: >300 Not Available [facility] ([facility]) [address] [facility] [place], [address], 03/26/2024 10:13:26 03/25/20 24 03/26/2024 LIPID PANEL cholesterol, total 222 mg/dL 100-19 9 above high normal Not Available [facility] ([facility]) [address] [facility] [place], [address], 03/26/2024 10:13:28 03/25/20 24 03/26/2024 LIPID PANEL triglyceride s 108 mg/dL 0-149 Not Available [facility] ([facility]) [address] [facility] [place], [address], 03/26/2024 10:13:28 03/25/20 24 03/26/2024 LIPID PANEL HDL cholesterol 53 mg/dL >39 Not Available [facility] ([facility]) [address] [place], [address], 03/26/2024 10:13:28 03/25/20 24 03/26/2024 LIPID PANEL VLDL cholesterol silvestre 19 mg/dL 5-40 Not Available [facility] ([facility]) [address] [place], [address], 03/26/2024 10:13:28 03/25/20 24 03/26/2024 LIPID PANEL LDL chol calc ([facility]) 150 mg/dL 0-99 above high normal Not Available [facility] ([facility]) [address] [place], [address], 03/26/2024 10:13:28 03/25/20 24 03/26/2024 COMP. METAB OLIC PANEL (14) glucose 119 mg/dL 70-99 above high normal Not Available [facility] ([facility]) [address] [place], [address], 03/26/2024 10:13:29 03/25/20 24 03/26/2024 COMP. METAB OLIC PANEL (14) BUN 12 mg/dL 8-27 Not Available [facility] ([facility]) [address] [facility] [place], [address], 03/26/2024 10:13:29 03/25/20 24 03/26/2024 COMP. METAB OLIC PANEL (14) creatinine 0.88 mg/dL 0.57-1 .00 Not Available [facility] ([facility]) [address] [facility] [place], [address], 03/26/2024 10:13:29 03/25/20 24 03/26/2024 COMP. METAB OLIC PANEL (14) eGFR 67 mL/mi n/1.7 3 >59 Not Available [facility] ([facility]) [address] [facility] [place], [address], 03/26/2024 10:13:29 03/25/20 24 03/26/2024 COMP. METAB OLIC PANEL (14) BUN/creatini ne ratio 14 12-28 Not Available [facility] ([facility]) [address] [facility] [place], [address], 03/26/2024 10:13:29 03/25/20 24 03/26/2024 COMP. METAB OLIC PANEL (14) sodium 140 mmol/ L 134-14 4 Not Available [facility] ([facility]) [address] [facility] [place], [address], 03/26/2024 10:13:29 03/25/20 24 03/26/2024 COMP. METAB OLIC PANEL (14) potassium 4.8 mmol/ L 3.5-5. 2 Not Available [facility] ([facility]) [address] [facility] [place], [address], 03/26/2024 10:13:29 03/25/20 24 03/26/2024 COMP. METAB OLIC PANEL (14) chloride 103 mmol/ L 96-106 Not Available [facility] ([facility]) [address] [facility] [place], [address], 03/26/2024 10:13:29 03/25/20 24 03/26/2024 COMP. METAB OLIC PANEL (14) carbon dioxide, total 25 mmol/ L Not Available [facility] ([facility]) [address] [facility] [place], [address], 03/26/2024 10:13:29 03/25/20 24 03/26/2024 COMP. METAB OLIC PANEL (14) calcium 9.1 mg/dL 8.7-10 .3 Not Available [facility] ([facility]) [address] [place], [address], 03/26/2024 10:13:29 03/25/20 24 03/26/2024 COMP. METAB OLIC PANEL (14) protein, total 6.1 g/dL 6.0-8. 5 Not Available [facility] ([facility]) [address] [facility] [place], [address], 03/26/2024 10:13:29 03/25/20 24 03/26/2024 COMP. METAB OLIC PANEL (14) albumin 3.9 g/dL 3.8-4. 8 Not Available [facility] ([facility]) [address] [facility] [place], [address], 03/26/2024 10:13:29 03/25/20 24 03/26/2024 COMP. METAB OLIC PANEL (14) globulin, total 2.2 g/dL 1.5-4. 5 Not Available [facility] ([facility]) [address] [facility] [place], [address], 03/26/2024 10:13:29 03/25/20 24 03/26/2024 COMP. METAB OLIC PANEL (14) bilirubin, total 0.6 mg/dL 0.0-1. 2 Not Available [facility] ([facility]) [address] [facility] [place], [address], 03/26/2024 10:13:29 03/25/20 24 03/26/2024 COMP. METAB OLIC PANEL (14) alkaline phosphatase 84 IU/L 44-121 Not Available [facility] ([facility]) [address] [facility], [place], [address], 03/26/2024 10:13:29 03/25/20 24 03/26/2024 COMP. METAB OLIC PANEL (14) AST (SGOT) 14 IU/L 0-40 Not Available [facility] ([facility]) [address] [facility], [place], [address], 03/26/2024 10:13:29 03/25/20 24 03/26/2024 COMP. METAB OLIC PANEL (14) ALT (SGPT) 17 IU/L 0-32 Not Available [facility] ([facility]) [address] [facility], [place], [address], 03/26/2024 10:13:29 03/25/20 24 03/26/2024 TSH RFX ON ABNOR MAL TO FREE T4 TSH 5.200 uIU/m L 0.450- 4.500 above high normal Not Available [facility] ([facility]) [address] [facility], [place], [address], 03/26/2024 10:13:30 03/25/20 24 03/26/2024 T4F T4,free (direct) 1.11 NG/dL 0.82-1 .77 Not Available [facility] ([facility]) [address] [facility], [place], [address], 03/26/2024 10:13:32 03/25/20 24 03/26/2024 CBC, PLATE LET, NO DIFFE RENTI AL WBC 5.7 x10e3 /uL 3.4-10 .8 Not Available [facility] ([facility]) [address] [facility], [place], [address], 03/26/2024 10:13:32 03/25/20 24 03/26/2024 CBC, PLATE LET, NO DIFFE RENTI AL RBC 4.84 x10e6 /uL 3.77-5 .28 Not Available [facility] ([facility]) [address] [facility], [place], [address], 03/26/2024 10:13:32 03/25/20 24 03/26/2024 CBC, PLATE LET, NO DIFFE RENTI AL hemoglobin 14.5 g/dL 11.1-1 5.9 Not Available [facility] ([facility]) [address] [facility], [place], [address], 03/26/2024 10:13:32 03/25/20 24 03/26/2024 CBC, PLATE LET, NO DIFFE RENTI AL hematocrit 44.2 % 34.0-4 6.6 Not Available [facility] ([facility]) [address] [facility], [place], [address], 03/26/2024 10:13:32 03/25/20 24 03/26/2024 CBC, PLATE LET, NO DIFFE RENTI AL MCV 91 fL 79-97 Not Available [facility] ([facility]) [address] [facility], [place], [address], 03/26/2024 10:13:32 03/25/20 24 03/26/2024 CBC, PLATE LET, NO DIFFE RENTI AL MCH 30.0 pg 26.6-3 3.0 Not Available [facility] ([facility]) [address] [facility], [place], [address], 03/26/2024 10:13:32 03/25/20 24 03/26/2024 CBC, PLATE LET, NO DIFFE RENTI AL MCHC 32.8 g/dL 31.5-3 5.7 Not Available [facility] ([facility]) [address] [facility], [place], [address], 03/26/2024 10:13:32 03/25/20 24 03/26/2024 CBC, PLATE LET, NO DIFFE RENTI AL RDW 11.9 % 11.7-1 5.4 Not Available [facility] ([facility]) [address] [facility], [place], [address], 03/26/2024 10:13:32 03/25/20 24 03/26/2024 CBC, PLATE LET, NO DIFFE RENTI AL platelets 276 x10e3 /uL 150-45 0 Not Available [facility] ([facility]) [address] [facility], [place], [address], 03/26/2024 10:13:32 Result Notes None recorded. Procedures Surgical History Date Name Laterality Status Provider Name and Address Organization Details Recorded Time Total hysterectomy completed DUDLEY Bravo [facility] 03/13/2024 10:35:37 procedure on ankle completed Bruna Biggs [place] 03/13/2024 10:35:57 leg repair completed Bruna Biggs MA [facility] 03/13/2024 10:36:15 procedure on nose completed Bruna east [place] [facility] 03/13/2024 10:37:02 Imaging Results None recorded. Procedure Notes None recorded. Medical Equipment None Reported. Allergies Allergen ID Allergen Name Allergen Category Reaction Reaction Severity Criticality Documentation Date Start Date Code Code System Note Provider Name and Address Organization Details Recorded Time 261659 clindamyc in Not available other mild high 03/13/2024 2582 RxNoDUDLEY [place] 4 10:31:39 082527 doxycycli ne Not available other moderate low 03/13/2024 3640 RxNoDUDLEY [place] 4 10:31:59 503591 levothyro xine sodium medicatio n Not available Not available Not available 03/13/2024 39904 RxNoDUDLEY [place] 4 10:32:14 528545 sulfameth oxazole / trimethop rim medicatio n Not available Not available Not available 03/13/2024 38405 RxNoDUDLEY Mendieta [facility] 4 10:32:32 526818 Product containin g penicilli n (product) medicatio n Not available Not available Not available 03/13/2024 04321 8001 SNOMED DUDLEY Bravo, [facility] 4 10:32:47 748150 Levaquin medicatio n Not available Not available Not available 03/13/2024 12680 2 RxNorm Bruna Biggs [place] null, [place] [facility] 4 10:32:57 Medications Name Sig Start Date Stop Date Status Note LastModified by Organization Details LastModified Time wal-zyr d tablets TAKE 1 TABLET BY MOUTH EVERY 12 HOURS NEEDED active Not Available Not Available No t Available cyclobenzap rine 10 mg tablet TAKE 1 TABLET BY MOUTH ONCE DAILY AT NIGHT 03/13 completed Not Available Not Available Not Available promethazin e-DM 6.25 mg-15 mg/5 mL oral syrup TAKE 5 ML BY MOUTH EVERY 4 HOURS FOR 10 DAYS NEEDED active Not Available Not Available No t Available Zyrtec-D 5 mg-120 mg tablet,exte nded release TAKE 1 TABLET BY MOUTH EVERY 12 HOURS NEEDED active Not Available Not Available No t Available azithromyci n 250 mg tablet TAKE 2 TABLETS BY MOUTH FOR 1 DAY THEN TAKE 1 TABLET BY MOUTH DAILY FOR 4 DAYS active Not Available Not Available No t Available hydrocodone 5 mg-acetamin ophen 325 mg tablet TAKE 1 TABLET BY MOUTH EVERY 6 HOURS 03/13 completed Not Available Not Available Not Available meloxicam 15 mg tablet TAKE 1 TABLET BY MOUTH EVERY DAY active Not Available Not Available No t Available prednisone 20 mg tablet TAKE 2 TABLETS BY MOUTH ONCE DAILY WITH FOOD EVERY MORNING FOR 5 DAYS 03/13 completed Not Available Not Available Not Available estradiol 0.05 mg/24 hr weekly transdermal patch Apply 1 patch every week by transderm al route. active Not Available Not Available No t Available clindamycin HCl 150 mg capsule TAKE ONE CAPSULE BY MOUTH THREE TIMES DAILY 03/13 completed Not Available Not Available Not Available estradiol 0.05 mg/24 hr semiweekly transdermal patch APPLY ONE PATCH TOPICALLY TO THE SKIN 2 TIMES PER WEEK active Not Available Not Available No t Available valacyclovi r 500 mg tablet TAKE 1 TABLET BY MOUTH THREE TIMES DAILY FOR 7 DAYS 03/13 completed Not Available Not Available Not Available aspirin 81 mg tablet,natalie yed release TAKE 1 TABLET BY MOUTH TWICE A DAY active Not Available Not Available No t Available acetaminoph en 500 mg tablet TAKE 2 CAPLETS BY MOUTH EVERY 6 HOURS NEEDED FOR PAIN 03/13 completed Not Available Not Available Not Available ibuprofen 600 mg tablet TAKE 1 TABLET BY MOUTH EVERY 8 HOURS NEEDED FOR PAIN 03/13 completed Not Available Not Available Not Available levofloxaci n 500 mg tablet one tab po q d active Not Available Not Available No t Available albuterol sulfate HFA 90 mcg/actuati on aerosol inhaler two puffs qid prn active Not Available Not Available No t Available morphine 15 mg immediate release tablet TAKE 1 TABLET BY MOUTH EVERY 8 HOURS NEEDED FOR SEVERE PAIN 03/13 completed Not Available Not Available Not Available ramipril 10 mg capsule TAKE 1 CAPSULE BY MOUTH EVERY DAY active Not Available Not Available No t Available neomycin 3.5 mg/g-polymy james B 10,000 unit/g-dexa meth 0.1 % eye oint APPLY SMALL AMOUNT TO THE AFFECTED AREA OF THE EYE EVERY 3 TO 4 HOURS FOR 14 DAYS 03/13 completed Not Available Not Available Not Available Vitals Date Recorded Body weight Body mass index (BMI) Body height Body temperature Oxygen saturation Oxygen saturation in Arterial blood by Pulse oximetry Heart rate Systolic blood pressure Diastolic blood pressure Provider Name and Address Organization Details Last Updated DateTime 4 96175.5 8 g 36.4 kg/m2 162.56 cm 97.7 [degF] 97 % 97 % 99 /min 122 mm[Hg] 80 mm[Hg] Bruna Biggs [place] [facility] 4 10:42:38 Social History Question Answer Notes LastModified by Organizat ion Details LastModified Time Tobacco Smoking Status Never Smoker Bruna Biggs [place] null, [place] [facility] 03/13/2024 10:35:25 What Is Your Level Of Alcohol Consumption? None Information not available 03/13/2024 What Is Your Level Of Caffeine Consumption? None Information not available 03/13/2024 What Was The Date Of Your Most Recent Tobacco Screening? 03/13/2024 Information not available 03/13/2024 Do You Use Any Illicit Or Recreational Drugs? No Information not available 03/13/2024 Has Tobacco Cessation Counseling Been Provided? No Information not available 03/13/2024 Sex: Unknown Functional Status None recorded. Mental Status None recorded. Family History Relationship Description Onset Age of this Age Resolved Age Notes LastModified by Organization Details LastModified Time Mother Diabetes mellitus [email or web address] Not available 2023 10:43:06 Mother Congestive heart failure [email or web address] Not available 2023 10:43:19 Mother Cerebrovascu lar accident [email or web address] Not available 10:43:29 Medical History Condition Response Coronary Artery Disease N Other N High Blood Pressure Y Atrial Fibrillation N Kidney or Bladder Problems Y Thyroid Problems N GI Problems N Depression N COPD N Blood Clots N Have you had a mammogram in the last yea r? Y Skin Problems N Eating Disorder N Anemia N Heart Attack ([place]) N Anxiety Disorder N Diabetes N Muscle, Joint, or Bone Problems N Arthritis Y Seizures/Epilepsy N Have you had a colonoscopy in the last 1 0 years? Y Acid Reflux (GERD) Y Cancer N Stroke N Asthma N Allergies Y Have you had a PSA blood test in the las t year? N ADHD N Substance Abuse N High Cholesterol N Hepatitis N Liver Disease N Schizophrenia N Headaches Y Osteoporosis N Heart Failure N Gynecological HistoryNo gynecological history recorded. Obstetrics History GPAL:G 0 P 0 0 0 0 Past Encounters Encounter ID Performer Location Encounter Start Date Encounter Closed Date Diagnosis/Indication Diagnosis SNOMED-CT Code Diagnosis ICD10 Code Diagnosis Note [id number] Farhana Gr MD [facility] (Adult Med) [address] [place] [address] 03/13/2024 10:14:45 03/19/2024 11:29:02 Essential hypertension 97862684 I10 Due for yearly fasting blood work. Since she at [facility] today will return for fasting blood tests and urine. Blood pressure good today. Continue present medication . Jaw pain 745877101 R68.8 4 She has seen a dentist and an ENT and it sounds like she is still having the jaw pain and there is not clear etiology. I mentioned the possibilit y of trigeminal neuralgia or nerve pain. I will get the records from the ENT. I told her we could refer her to a neurologis t for further evaluation and try medication for this to see if it helps. She will think about it. She has taken an aspirin a day along with allergy medicine to try to help this. I told her they are no longer recommendi ng an aspirin a day for prevention at her age, so if it is not helping then I would suggest she discontinu e the aspirin. Irritable bowel syndrome 97888241 K58.9 Varicose v eins of lower extremity 41568171 I83.93 History of leukemia 1614 29791 Z85.6 Will get a CBC. Rhinitis 52846904 J00 Continue allergy medication as needed. Menopausal flushing 1983 76489 N95.1 I told her that the Estradiol patch still poses a slight increased risk of blood clot, stroke, and heart attack, but it is less than oral estrogen. She understand s that but she has read a book by someone she trusts who recommends this and she wants to continue this medication . She has tried other medication s without success. History of pneumonia 161 671544 Z87.01 She just completed the Zithromax and the Prednisone and she is improving. Lung sounds were good today and she was in no distress. She just completed the Zithromax, so I explained to her that it is still working for five more days. If she does not continue to improve over the next week, or if she becomes worse, she should let me know. Health Concerns Section Related Observation LastModified by Organization Detai ls LastModified Time None Recorded Concern Status LastModified by Organization Details LastModified Time None Recorded Advance Directives Directive None Recorded Payers Encounter Date Sequence Insurance Name Policy Number Policy Jha Covered Member ID Jha Member ID Guarantor Name 03/13/2024 1 *SELF PAY* Bella Feliciano 03/13/2024 2 [employer] - [employer] (MEDICARE REPLACEMENT/ ADVANTAGE - HMO) [id number] Idania Feliciano [id number] Idania Feliciano Notes Date Note Type Note Provider Name and Address Organization Details Recorded Time 03/13/2024 text/html here to andra back ashley, treated for pneumonia recently, finished Zpak Monday and finished steroid Monday, has improved about fifty to seventy five percent, still has sore throat and a little bit of swelling of glands in neck on left side but this has been a chronic issue, not feeling well in the morning but feels better as day goes on, mornings are frequently difficult, has noticed this for at least a year, started having problems with teeth and had a lot of work done, thought the discomfort on left side of jaw and neck were from teeth but did not improve after dental work, can rub top of gums and sore, discomfort in throat and mouth and glands, sometimes ear ache and headaches, has seen an ENT, was told she did have some issues with her sinuses on the left side, was referred to a technical program manager, had PFTs, not sure what the problem is, has a follow up, sister had COPD, 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 Serrato would like CBC sent to him once a year, had elevated cholesterol for awhile, had a problem with cholesterol medication so switched to taking a natural cholesterol medication called Red Yeast Rice, can only take it for thirty days, cholesterol improved and then stopped it, uses low dose estrogen patch, has tried other medications for hot flashes, takes aspirin daily and Zyrtec, takes fiber pills and multiple vitamins and supplements, had colonoscopy in the last ten years, has had throat stretched but didn't think it helped much, left leg fracture beginning of the year, ate a little bit of grahm cracker this morning, mom had stroke Farhana Gr MD Attn: Accounting,[address] [facility], [place], [address], [facility] 03/13/2024 19:05:01 OBGyn Episode No OBEpisode recorded.
--- OUTSIDE RECORDS SUMMARY | 2024-08-24 16:09 | XMS_ITS | Continuity of Care Document ---
Author Organization [facility] Address [address] [place] [address] Phone Care Team Providers Care Address Change Clerk Name Role Phone Jamar Santana Unavailable Unavailable Procedures Procedure Date Office/outpatient Visit, Est Office/outpatient Visit, Est Office/outpatient Visit, Est Office/outpatient Visit, Est Eye Exam Established Pt Office/outpatient Visit, Est Eye Exam Established Pt Office/outpatient Visit, Est Office/outpatient Visit, Est Eye Exam Established Pt Office/outpatient Visit, Est Eye Exam & Treatment Office/outpatient Visit, New Advance Directives Directive Yes / No Effective Date File Name No Information Encounters Encounter Description Practice Location Reason(s) For Visit Diagnoses Date Provider Providers Copied on Encounter Office/outpat ient Visit, [facility] [place], [address], [place], [place], [id number], [place] tel:[phone] SEC [facility] No Information 0 Max Roldan. [address] , [address], [place], [address], [place]. tel:[phone] Office/outpat ient Visit, [facility] [place], [address], [place], [place], [id number], [place] tel:[phone] SEC [facility] No Information Apr-2 1-200 9 Krishnasamy Branden. [address] [facility] [address], [address], [place]. tel:[phone] Office/outpat ient Visit, [facility], [address], [place], [place], [address], [place] tel:[phone] [facility] No Information Oct-2 1-200 8 Krishnasamy Branden. [address] [facility] [address], [place], [place], [facility], [place]. tel:[phone] [facility], [facility], [address], [place], [place], [address], [place] tel:[phone] [facility] [place] No Information Sep-1 6-200 8 Krishnasamy Branden. [address] [facility] [address], [place], [facility], [place]. tel:[phone] [facility], [address], [place], [place], [address], [place] tel:[phone] [facility] No Information Sep-0 9-200 8 Krishnasamy Branden. [facility] [address], [place], [facility], [place]. tel:[phone] [facility]pat [facility], [address], [place], [place], [address], [place] tel:[phone] [facility] [place] No Information Sánchez-2 1-200 8 Krishnasamy Branden. [address] [facility] [address], [place], [address], [place]. tel:[phone] [facility], [address], [place], [place], [address], [place] tel:[phone] [facility] No Information Oct-1 4-200 8 Krishnasamy Branden. [address] [facility] [place] [address], [place], [address], [place]. tel:[phone] Office/outpat ient Visit, [facility], [address], [place], [place], [address], [place] tel:[phone] [facility] No Information May-0 2-200 8 Doisy Edward. [address] [facility] [place] , [address], [place], [facility], [place]. tel:[phone] Office/outpat ient Visit, [facility], [address], [place], [place], [address], [place] tel:[phone] [facility] [place] No Information Apr-2 5-200 8 Doisy Edward. [facility] , [address], [place], [facility], [place]. tel:[phone] [facility], [address], [place], [place], [address], [place] tel:[phone] [facility] [place] No Information Apr-2 2-200 8 Krishnasamy Branden. Critical access hospital[facility] [address], [place], [facility], [place]. tel:[phone] Office/outpat ient Visit, [facility], [address], [place], [place], [address], [place] tel:[phone] [facility] [place] No Information Nov-2 7-200 7 Rafat Bowles. [address], [place], [place], [address], [place]. tel:[phone] [facility], [address], [place], [place], [address], [place] tel:[phone] SEC [facility] No Information 2 0-200 7 Rafat Bowles. [address], [facility] [place], [place], [address], . tel:[phone] Office/outpat ient Visit, [facility], [address], [place], [place], [address], [place] tel:[phone] [facility] No Information 3 0-200 7 Rafat Bowles. [address], [facility] [address], [place], [place], [address], [place]. tel:[phone] Family History Family Member Type Diagnosis Age At Onset No Information Payers Payer name Insurance type Covered republican ID Authoriza tion(s) No Information Social History Type Description Quantity Date Captured Comments Sex Female Smoking Status No Information Chief Complaint And Reason For Visit No Information Reason For Referral Reason For Referral No Information History Of Present Illness Encounter Date Complaint History Of Prese nt Illness No Information Functional Status Date Functional Assessmen t No Information Instructions Date Instruction Additional Infor mation No Information Assessments Type Assessment Date No Information Patient Care Teams Name Effective Dates (start - stop) Status Members No Information
--- OUTSIDE RECORDS SUMMARY | 2024-08-24 16:09 | XMS_ITS | Clinical Summary ---
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 Name Role Phone Unavailable Primary Care Provider Unavailabl e Allergies Active Allergy Reactions Criticality Noted Date Comments Codeine Anxiety Low 02/19/2010 Penicillin G Hives High 02/19/2010 Social History Tobacco Use Types Packs/Day Years Used Date Smoking Tobacco: Never Assessed Comments Unknown Sex and Gender Information Value Date Recorded Sex Assigned at Not on file 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 Gender Identity Not on file Sexual Orientation Not on file Plan of Treatment Upcoming Encounters Date Type Department Care Team (Late st Contact Info) Description 09/04/2024 3:00 PM CDT Office Visit [facility] [address] [place] [address] Ame Decker MD [address] [place] [id number] Health Maintenance Due Date Last Done Comments DTAP/TDAP/TD VACCINES (1 - Tdap) 1964 PNEUMOCOCCAL VACCINE 50+ YEARS (1 of 1 - PCV) 04/19/19 95 ZOSTER VACCINE (1 of 2) 1995 OSTEOPOROSIS SCREENING 2010 RSV VACCINE (60+ or ) (1 - 1-dose 75+ series) 2020 INFLUENZA VACCINE (#1) 2023
--- OUTSIDE RECORDS SUMMARY | 2024-08-24 16:09 | XMS_ITS | Data Portability ---
Author Organization [place] [facility], Main Office Address [address] [place] [address] Care Team Providers Care Cushion Former Name Role Phone EDUARDO BRADFORD Primary Care Provider [phone] EDUARDO BRADFORD Referring Provider [phone] Assessment Encounter Date Assessment Date Assessment LastModified by Organization Details LastModified Time 04/22/2024 04/22/2024 79-year-old patient presents today with left knee pain that has been going on for about 2 weeks. In April of 2023 she underwent a left leg tibial nailing with Dr. Cai. She states that in February she was diagnosed with pneumonia. She took a course of antibiotics but did not feel better afterwards. She presented to a different provider who gave her a new course of antibiotics. When she started to take those she developed an allergic reaction that included hives and itching. She states that during this time she also developed pain, swelling, and warmth in the left knee. She states it got to the point where she could not bear weight or bend the knee. She had to start walking with a walker, and was previously walking without assistive devices. She stopped taking those antibiotics and did not go back to her provider. Today she states that the knee is still bothering her, but has gotten slightly better, 6/10 pain. She still feels like she has pneumonia. imaging: X-rays reviewed of left knee show no acute bony abnormality or fracture. She does have osteoarthritic degenerative changes and joint space narrowing. Hardware in place looks intact. Physical exam: Antalgic gait with walker. Some tenderness with palpitation around the knee. No redness or warmth present today. Minimal edema. No pain with extension but does have pain with flexion past 90. Sensation intact throughout. We discussed that she should return to her primary care doctor to continue treatment for her pneumonia. In the meantime we will order labs to rule out infection in the joint or hardware. We will see her back next week for recheck. She may call before then with any issues. [email or web address] Not available 04/23/2024 14:55:43 05/01/2024 05/01/2024 79-year-old female presents for follow-up of her left knee. She has a history of left tibial IM nail on 05/13/2023. She recovered well from that, but then progressively recently she developed some pain in the knee. She currently rates her pain as 8/10. His over the inside and outside aspect of the knee, worse with activities, standing, walking. Incisions are well healed. She has no tenderness around the tibia. She does have joint line pain and pain over the patellofemoral joint. Range of motion 5-130 with some crepitus. X-rays reviewed, demonstrating postsurgical changes with hardware in place Given her new symptoms in the area different then her fracture, she appears to have some knee arthritis that is flaring up and bothering her. We will treat her conservatively with a course of physical therapy and anti-inflammatori es. She may follow-up in 2 months as needed for recheck. [email or web address] Not available 05/03/2024 00:06:17 07/01/2024 07/01/2024 HPI: 79 year old female presents today for a follow up left knee pain. She was last evaluated on May 01, and the treatment plan was conservative management for arthritis. Reports improvement with physical therapy. No longer needs an AD to ambulate and no longer needs assistance with [id number] activities. She takes a daily aspirin for cardiovascular reasons, which also helps with her knee pain. She rarely takes Aleve or Tylenol for pain and rates her pain as 0/10. Overall, she is doing well and has two more sessions of physical therapy. Physical Exam: General: Normal appearance. No acute distress. Inspection: No evidence of swelling, erythema, bruising or deformity. Palpation: Mild tenderness over the patellofemoral joint. ROM: 0-120 Motor: 5/5 strength. Sensation: Sensation intact. Assessment & Plan: Continue with conservative management. She doesn't feel like she needs any more PT. Advised to call us if she would like to do more PT. Follow Up: As needed. All questions were answered. Patient verbalized understanding of treatment plan [email or web address] Not available 07/01/2024 19:53:22 Plan of Treatment Reminders Order Date Submit Date Provider Last Modified By Organization Details Last Modified Time Details Appointments New Patient 15 2024 01:00P Erik Nayak DPM Not available Not available Not available Lab culture, aerobic, throat 2024 025 [facility] (Lab), [address] [place], [address], 08/22/2024 09:24:10 rapid strep group A, throat 2024 025 [facility], [address] [place] [address] Drive [address], [place], [address], 08/20/2024 10:14:17 ESR (erythroc yte sedimenta tion rate), blood 2023 024 [facility] (Lab), [address] [place], [address], 04/22/2024 14:09:08 C-reactiv e protein, quantitat handy, serum or plasma 2023 024 [facility] (Lab), [address] [place], [address], 04/22/2024 14:00:21 Referral podiatris t referral - Please call patient to schedule an appointme nt. Thank you. 2024 025 KODY Nayak DPM, [address] [facility], [address], [place], [address], 08/20/2024 15:43:53 physical therapist referral - Please contact pt to schedule apt for L knee. thanks 2024 025 [facility], [address], [place], [address], 05/06/2024 16:53:10 Procedures None recorded. Surgeries None recorded. Imaging XR, chest, 2 view 2024 025 [facility], [address], [place], [address], 08/24/2024 14:01:48 MAMMO, diagnosti c, digital, unilatera l - Please call patient to schedule. 2024 025 [facility], [address], [address], [place], [address], 08/20/2024 15:18:01 XR, knee 2023 024 [email or web address] [facility], [facility], [place], [address], 04/23/2024 14:44:16 Medication Orders Mobic 15 mg tablet 2024 025 [id number], [address] [place], [place], [id number], 08/20/2024 09:16:19 Patient TargetsNo targets recorded. Patient InstructionsNo instructions recorded. Reason for Referral Physical Therapist Referral for Pain of left knee joint L knee Please contact pt to schedule apt for L knee. thanks Referring Physician: Ellis Cai, Orthopedic Surgery, Encounter Date: 05/01/2024 Brick Carrier Referral for Unab le to cut own toenails Please call patient to schedule an appointment. Thank you. Referring Physician: Eduardo Bradford, Family Medicine, Encounter Date: 08/20/2024 Results Created Date Observation Date Name Description Value Unit Range Abnormal Flag Note LastModifiedBy Organization Detail LastModifiedTime 08/21/19 25 08/20/2024 rapid strep group A, throa t STREP A negati ve Not Available [facility] [address], [place], [address], 08/20/2024 09:41:20 04/22/20 24 XR, knee No observ ation record ed. [email or web address] [facility] [address], [place], [address], 04/23/2024 14:44:14 08/25/19 25 08/24/2024 XR, chest , 2 view No observ ation record ed. [facility] [address], [place], [address], 08/24/2024 14:01:48 Result Notes None recorded. Problems Name Problem SNOMED Code Status Onset Date Resolution Date Notes Provider Name and Address Organization Details Recorded Time Diverticu litis 289035372 Active 2020 Not Available [facility] 3 22:43:15 Osteopeni a 533419686 Active 2020 DEXA 03/14 Not Available [facility] 3 22:43:15 Sinusitis 61439713 Active 2020 Not Available [facility] 3 22:43:15 Hypertens handy disorder 74402357 Active 2020 Not Available [facility] 3 22:43:15 Hypothyro idism 79769840 Active 2020 Not Available [facility] 3 22:43:15 Chronic myeloid leukemia in remission 94186601 Active 2020 Not Available [facility] 3 22:43:15 Chronic myeloid leukemia 40247963 Completed 202001/20/2021 Not Available [facility] 3 22:43:15 Aspiratio n pneumonia 815429990 Active 2022 Gladis Alston MD [address], [facility] [address], [place], [address] , [facility] [employer] [facility] 3 17:53:07 Allergic rhinitis 97313877 Active 2022 Gladis Alston MD [address], [facility] [address], [place], [address] , [facility] [employer] [facility] 3 15:10:53 Cough 52169858 Active 2022 Gladis Alston MD [address], [address], [address] , [facility] 3 17:43:49 Acute sinusitis 68070094 Active 2022 Gladis Alston MD [address], [address], [address] , [facility] 3 16:57:28 Mammograp hy abnormal 714771464 Active 2022 Gladis Alston MD [address], [address], [address] , [facility] 3 14:37:52 Essential hypertens ion 28035323 Active 2022 Gladis Alston MD [address], [address], [address] , [facility] 3 14:40:01 Hyperlipi demia 88639258 Active 2022 Gladis Alston MD [address], [address], [address] , [facility] 3 14:40:11 Vitamin D deficienc y 25372039 Active 2022 Gladis Alston MD [address], [address], [address] , [facility] 3 14:40:21 Cobalamin deficienc y 971009702 Active 2022 Gladis Alston MD [address], [address], [address] , [facility] 3 14:40:38 Pain in throat 824699710 Active 2022 Gladis Alston MD [address], [address], [address] , [facility] [employer] [facility] 3 14:44:30 Pain of left ankle joint 30250921319 116125 Active 2023 Radha Rosenberg ATC L null, PA - [facility] 4 10:51:15 Closed fracture of shaft of tibia 74418469 Active 2023 Ellis Cai MD [address], [address], [place], [address] , [facility] 4 12:23:05 Closed fracture of shaft of tibia 75265615 Active 2023 ROSE Valentine null, [facility] 4 16:14:55 Fracture of ankle 03155776 Active 2023 Gladis Alston MD [address], [address], [place], [address] , [facility] 4 14:56:11 Dysphagia 54715882 Active 2023 Gladis Alston MD [address], [address], [place], [address] , [facility] 4 16:08:55 Seasonal allergy 340188968 Active 2023 DARCY Calderon [address] [facility], [address], [place], [address] , [facility] 4 14:03:26 Respirato ry tract congestio n and cough 037593790 Active 2023 DARCY Soto [address] [facility], [address], [place], [address] , [facility] 4 11:12:53 Pain of left knee joint 01812369839 4107 Active 2023 Radha Rosenberg ATC L null, [facility] 4 10:27:48 Mechanica l complicat ion of implant 156362637 Active 2023 Radha Rosenberg ATC L null, PA - [facility] 4 10:38:03 Pain of multiple joints 80932352 Active 2024 Tayla Russell, RMShayna null, [facility] [employer] [facility] 5 15:37:55 Bronchiti s 34746812 Active 2024 AKIN Vergara [address], [address], [place], [address] , [facility] [employer] 5 10:26:36 Bilateral osteoarth ritis of knees 17367719598 9107 Active 2024 Nohelia Berry PA-C [address], [address], [place], [address] , [employer] [facility] [employer] 5 19:52:07 Sore throat 937994374 Active 2024 [address]ARCY Soto [address], [address], [place], [address] , [facility] [employer] [facility] [employer] [facility] [employer] 5 09:40:55 Wheezing 60316467 Active 2024 [address]oto [address], [address], [place], [address] , [place] [employer] [facility] [employer] 5 09:52:21 Generaliz ed aches and pains 16893377 Active 2024 DARCY Soto [address], [address], [place], [address] , [facility] [employer] 5 10:05:36 Problem Notes None recorded. Procedures Surgical History Date Name Laterality Status Provider Name and Address Organization Details Recorded Time 05/22/19 25 Medicare Wellness CPT Code, subsequent completed Stella Long RN [facility] 05/22/2024 11:59:06 03/06/20 24 Medicare Wellness CPT Code, subsequent completed Stella Long RN [facility] [employer] [facility] 03/06/2024 10:53:40 03/01/20 23 Medicare Wellness CPT Code, subsequent completed Stella Long RN [facility] [employer] [facility] 03/01/2023 14:07:38 04/24/19 12 Ankle Surgery completed Radha Roesnberg ATC L PA [employer] 05/03/2023 10:49:53 reconstructive orthopedic procedure completed Not Available [facility] 06/22/2022 22:42:41 Hysterectomy completed Not Available [facility] 06/22/2022 22:42:41 Imaging Results Imaging Date Name Status LastModified by Organiz ation Details LastModified Time 04/22/2024 XR, knee completed [email or web address] [facility] [address] [facility], [place], [address], 04/23/2024 14:44:14 08/24/2024 XR, chest, 2 view active [facility] [address], [place], [address], 08/24/2024 14:01:48 Procedure Notes None recorded. Medical Equipment None Reported. Allergies Allergen ID Allergen Name Allergen Category Reaction Reaction Severity Criticality Documentation Date Start Date Code Code System Note Provider Name and Address Organization Details Recorded Time 31832 sulfameth oxazole / trimethop rim medicatio n rash Not available Not available 06/22/2022 64795 RxNorm Not Available [facility] 3 22:44:09 24864 Product containin g penicilli n (product) medicatio n Not available Not available Not available 06/22/2022 13647 8001 SNOMED can baldemar ate cepha lexin Gladis Alston MD [address] [facility] [address], [place], [address] [place] [address] [employer] 3 14:30:55 70699 levothyro xine sodium medicatio n Not available Not available Not available 06/22/2022 95271 RxNorm Not Available [facility] 3 22:44:09 78758 codeine medicatio n Not available Not available Not available 06/22/2022 2670 RxNorm Not Available [facility] 3 22:44:10 57101 clindamyc in Not available Not available Not available Not available 06/22/2022 2582 RxNorm Not Available [facility] 3 22:44:10 44965 Cipro medicatio n Not available Not available Not available 06/22/202204638 3 RxNorm ruptu red ligam ent Not Available [facility] 3 22:44:10 31021 albuterol medicatio n Not available Not available Not available 06/22/2022 435 RxNorm cause d major fluct uatio ns in blood press ure Not Available [facility] 3 22:44:10 56945 doxycycli ne Not available Not available Not available Not available 03/01/2023 3640 RxNorm Gladis Alston MD [address] [facility], [facility] [address], [place], [address], [facility] 3 14:30:35 Medications Name Sig Start Date Stop Date Status Note LastModified by Organization Details LastModified Time wal-zyr d tablets TAKE 1 TABLET BY MOUTH EVERY 12 HOURS NEEDED active Not Available Not Available No t Available cyclobenzap rine 10 mg tablet TAKE 1 TABLET BY MOUTH ONCE DAILY AT NIGHT 03/06 completed Not Available Not Available Not Available promethazin e-DM 6.25 mg-15 mg/5 mL oral syrup TAKE 5 ML BY MOUTH EVERY 4 HOURS FOR 10 DAYS NEEDED active Not Available Not Available No t Available doxycycline hyclate 100 mg capsule TAKE 1 CAPSULE BY MOUTH TWICE DAILY FOR 7 DAYS 03/01 completed Not Available Not Available Not Available Zyrtec-D 5 mg-120 mg tablet,exte nded release TAKE 1 TABLET BY MOUTH EVERY 12 HOURS NEEDED active Not Available Not Available No t Available clindamycin HCl 300 mg capsule TAKE 1 CAPSULE BY MOUTH EVERY 8 HOURS FOR 5 DAYS 06/20 completed Not Available Not Available Not Available cetirizine 10 mg tablet Take 1 tablet every day by oral route as needed for 90 days. 01/02 completed Not Available Not Available Not Available azithromyci n 250 mg tablet TAKE 2 TABLETS (500 MG) BY ORAL ROUTE ONCE DAILY FOR 1 DAY THEN 1 TABLET (250 MG) BY ORAL ROUTE ONCE DAILY FOR 4 DAYS 08/20 completed Not Available Not Available Not Available benzonatate 200 mg capsule Take 1 capsule 3 times a day by oral route as needed. 07/20 completed Not Available Not Available Not Available hydrocodone 5 mg-acetamin ophen 325 mg tablet TAKE 1 TABLET BY MOUTH EVERY 6 HOURS 01/02 completed Not Available Not Available Not Available meloxicam 15 mg tablet Take 1 tablet every day by oral route. 08/20 completed Not Available Not Available Not Available prednisone 20 mg tablet TAKE 2 TABLETS BY MOUTH ONCE DAILY WITH FOOD EVERY MORNING FOR 5 DAYS 05/22 completed Not Available Not Available Not Available estradiol 0.05 mg/24 hr weekly transdermal patch active Not Available Not Available Not Available Prilosec 20 mg capsule,del ayed release Take 1 capsule every day by oral route. 01/20 completed Not Available Not Available Not Available clindamycin HCl 150 mg capsule TAKE ONE CAPSULE BY MOUTH THREE TIMES DAILY 01/02 completed Not Available Not Available Not Available estradiol 0.05 mg/24 hr semiweekly transdermal patch APPLY 1 PATCH TO THE SKIN 2 TIMES PER WEEK active Not Available Not Available No t Available valacyclovi r 500 mg tablet TAKE 1 TABLET BY MOUTH THREE TIMES DAILY FOR 7 DAYS 01/02 completed Not Available Not Available Not Available sulfamethox azole 800 mg-trimetho prim 160 mg tablet TAKE 1 TABLET BY MOUTH EVERY 12 HOURS 07/07 completed rash Not Available Not Available Not Available aspirin 81 mg tablet,natalie yed release TAKE 1 TABLET BY MOUTH TWICE A DAY active Not Available Not Available No t Available doxycycline monohydrate 100 mg tablet TAKE 1 TABLET BY MOUTH TWICE DAILY UNTIL ALL TAKEN 01/20 completed Not Available Not Available Not Available acetaminoph en 500 mg tablet TAKE 2 CAPLETS BY MOUTH EVERY 6 HOURS NEEDED FOR PAIN 01/02 completed Not Available Not Available Not Available triamcinolo ne acetonide 0.1 % topical cream APPLY THIN LAYER TOPICALLY TO THE AFFECTED AREA TWICE DAILY 05/03 completed Not Available Not Available Not Available benzonatate 100 mg capsule TAKE 1 CAPSULE BY MOUTH THREE TIMES DAILY NEEDED FOR COUGH 05/03 completed Not Available Not Available Not Available cephalexin 500 mg capsule TAKE 1 CAPSULE BY MOUTH TWICE DAILY FOR 7 DAYS 06/20 completed Not Available Not Available Not Available azelastine 137 mcg (0.1 %) nasal spray USE 2 SPRAYS IN EACH NOSTRIL TWICE DAILY 02/10 completed Not Available Not Available Not Available ibuprofen 600 mg tablet TAKE 1 TABLET BY MOUTH EVERY 8 HOURS NEEDED FOR PAIN 01/02 completed Not Available Not Available Not Available levofloxaci n 500 mg tablet 05/22 completed Not Available Not Available Not Available albuterol sulfate HFA 90 mcg/actuati on aerosol inhaler Inhale 2 puffs every 4 hours by inhalatio n route as needed. active Not Available Not Available No t Available morphine 15 mg immediate release tablet TAKE 1 TABLET BY MOUTH EVERY 8 HOURS NEEDED FOR SEVERE PAIN 01/02 completed Not Available Not Available Not Available doxycycline hyclate 100 mg tablet TAKE 1 TABLET BY MOUTH EVERY 12 HOURS FOR 7 DAYS 03/01 completed Not Available Not Available Not Available ramipril 10 mg capsule TAKE 1 CAPSULE BY MOUTH EVERY DAY active Not Available Not Available No t Available neomycin 3.5 mg/g-polymy james B 10,000 unit/g-dexa meth 0.1 % eye oint APPLY SMALL AMOUNT TO THE AFFECTED AREA OF THE EYE EVERY 3 TO 4 HOURS FOR 14 DAYS 01/02 completed Not Available Not Available Not Available Flovent HFA 44 mcg/actuati on aerosol inhaler 03/06 completed Not Available Not Available Not Available aspirin 03/06 completed Not Available Not Available Not Available estradiol 05/22 completed Not Available Not Available Not Available Prilosec active Not Available Not Avai lable Not Available Sore Throat (benzocaine with menthol) 15 mg-2.6 mg lozenges DISSOLVE 1 LOZENGE IN MOUTH EVERY 2 HOURS NEEDED FOR SORE THROAT 09/15 completed Not Available Not Available Not Available Flonase Allergy Relief active Not Available Not Available Not Available Vitals Date Recorded Body height Body mass index (BMI) Body weight Pain severity - 0-10 verbal numeric rating [Score] - Reported Provider Name and Address Organization Details Last Updated DateTime 04/22/2024 167.64 cm 32.4 kg/m2 10193.07 g 6 ROSE Valentine PA - [facility] 04/22/2024 10:04:44 Date Recorded Body height Body mass index (BMI) Body weight Pain severity - 0-10 verbal numeric rating [Score] - Reported Provider Name and Address Organization Details Last Updated DateTime 05/01/2024 167.64 cm 32.4 kg/m2 34980.07 g 8 Tayla Yvonne [facility] [employer] [facility] 05/01/2024 15:35:20 Date Recorded Body height Body mass index (BMI) Body weight Body temperature Heart rate Oxygen saturation Oxygen saturation in Arterial blood by Pulse oximetry Systolic blood pressure Diastolic blood pressure Provider Name and Address Organization Details Last Updated DateTime 167.64 cm 32.9 kg/m2 10443.8 4 g 97.2 [degF] 101 /min 94 % 94 % 144 mm[Hg] 70 mm[Hg] Stella Long RN [facility] [employer] [facility] 12:04:49 Date Recorded Body height Body mass index (BMI) Body weight Provider Name and Address Organization Details Last Updated DateTime 07/01/2024 167.64 cm 32.4 kg/m2 57691.07 g Bree Mara [facility] [employer] [facility] 07/01/2024 14:09:20 Date Recorded Body height Body mass index (BMI) Body weight Body temperature Heart rate Oxygen saturation Oxygen saturation in Arterial blood by Pulse oximetry Systolic blood pressure Diastolic blood pressure Provider Name and Address Organization Details Last Updated DateTime 167.64 cm 33.1 kg/m2 37790.4 4 g 96.4 [degF] 77 /min 96 % 96 % 140 mm[Hg] 108 mm[Hg] Alfonso Ynes [facility] [employer] [facility] 09:27:29 Social History Question Answer Notes LastModified by Organization Details LastModified Time Tobacco Smoking Status Never Smoker Brittany chirinos [facility] [employer] [facility] 03/01/2023 14:05:08 Do You Have An Advance Directive? No Packet Of Information [id number] Information not available 06/22/2022 What Is Your Level Of Alcohol Consumption? None [id number] Information not available 06/22/2022 Are You Blind Or Do You Have Difficulty Seeing? No Glasses [email or web address] Information not available 03/01/2023 What Is Your Level Of Caffeine Consumption? Occasional [id number] Information not available 06/22/2022 How Much Tobacco Do You Chew? None [id number] Information not available 06/22/2022 In The 14 Days Before Symptom Onset, Have You Had Close Contact With A Laboratory-conf irmed COVID-19 While That Case Was Ill? No [email or web address] Information not available 03/01/2023 In The 14 Days Before Symptom Onset, Have You Had Close Contact With A Person Who Is Under Investigation For COVID-19 While That Person Was Ill? No Information not available 08/20/2024 Are You Currently Employed? No Retired Information not available 08/20/2024 Are You Deaf Or Do You Have Serious Difficulty Hearing? No [email or web address] Information not available 03/01/2023 What Type Of Diet Are You Following? REGULAR [id number] Information not available 06/22/2022 Which Illicit Or Recreational Drugs Have You Used? None [email or web address] Information not available 03/01/2023 Do You Or Have You Ever Used E-cigarettes Or Vape? Never Used Electronic Cigarettes [email or web address] Information not available 03/01/2023 Have There Been Any Changes To Your Family Or Social Situation? No [email or web address] Information not available 03/01/2023 Are There Any Guns Present In Your Home? No [email or web address] Information not available 03/01/2023 Do You Use Insect Repellent Routinely? No Doesn't Go Outside Much [email or web address] Information not available 03/01/2023 Where Do You Live? [facility] Information not available 08/20/2024 Do You Have A Medical Power Of Fiberglass Finisher? No [email or web address] Information not available 03/01/2023 What Was The Date Of Your Most Recent Tobacco Screening? 08/20/2024 Information not available 08/20/2024 Do You Have Any Pets? Yes Information not available 08/20/2024 What Is Your Relationship Status? Information not available 08/20/2024 Do You Use Your Seat Belt Or Car Seat Routinely? Yes Information not available 08/20/2024 Do You Have Smoke And Carbon Monoxide Detectors In Your Home? Yes [email or web address] Information not available 03/01/2023 Are You Passively Exposed To Smoke? No Information not available 08/20/2024 Do You Or Have You Ever Used Smokeless Tobacco? Never Used Smokeless Tobacco [id number] Information not available 06/22/2022 Are There Any Smokers In Your House? No Information not available 08/20/2024 How Much Tobacco Do You Smoke? No [id number] Information not available 06/22/2022 Do You Participate In Social Media? No Information not available 08/20/2024 Do You Feel Stressed (tense, Restless, Nervous, Or Anxious, Or Unable To Sleep At Night)? [id number] Information not available 08/20/2024 Do You Use Any Illicit Or Recreational Drugs? No [email or web address] Information not available 03/01/2023 Do You Use Sunscreen Routinely? No [email or web address] Information not available 03/01/2023 How Many Years Have You Smoked Tobacco? 0 [email or web address] Information not available 03/01/2023 Have You Recently Traveled Abroad? No [email or web address] Information not available 03/01/2023 Are You Currently In School? No Information not available 08/20/2024 Do You Have Any Dietary Restrictions? No Information not available 08/20/2024 Do You Or Have You Ever Used Any Other Forms Of Tobacco Or Nicotine? No Information not available 03/01/2023 Sex: Unknown Functional Status Question Answer Note LastModified by Organizat ion Details LastModified Time Do you have difficulty walking or climbing stairs? Yes a little but very cautious [email or web address] Information not available 03/01/2023 Do you have transportation difficulties? No [email or web address] Information not available 03/01/2023 Are you able to walk? YESWOREST [email or web address] Information not available 03/01/2023 Do you have difficulty doing errands alone? No [email or web address] Information not available 03/01/2023 Are you able to care for yourself? Yes [email or web address] Information n ot available 03/01/2023 Do you have difficulty dressing or bathing? No [email or web address] Information not available 03/01/2023 What is your exercise level? Occasional [id number] Information not available 06/22/2022 Mental Status Question Answer Note LastModified by Organization D etails LastModified Time Do you have difficulty concentrating, remembering or making decisions? No [email or web address] Information no t available 03/01/2023 Family History Relationship Description Onset Age of this Age Resolved Age Notes LastModified by Organization Details LastModified Time Mother Diabetes mellitus [id number] Not available 06/22/2022 22:42:42 Mother Congestive heart failure [email or web address] Not available 10:51:54 Mother Cerebrovascu lar accident [email or web address] Not available 03/06/2024 10:51:54 Father Parkinson's disease [email or web address] Not available 10:51:54 Sister Family history of malignant neoplasm frivastorres Not available 10:51:54 Medical History Condition Response HEART DISEASE/HEART PROBLEMS Y CANCER: SPECIFY Y LUNG DISEASE/DISORDER Y HYPERTENSION Y Gynecological History Statement/Question Response How many live births 3 Date of Last Mammogram Date of Last Colonoscopy Most Recent Bone Density Date of LMP Menses Monthly N Most Recent Mammogram Breast Problems none Discharge NO Obstetrics History GPAL:G 3 P 3 0 0 3 Type Value Full Term 3 Living 3 Total 3 Past Encounters Encounter ID Performer Location Encounter Start Date Encounter Closed Date Diagnosis/Indication Diagnosis SNOMED-CT Code Diagnosis ICD10 Code Diagnosis Note [id number] Gladis Alston MD [facility] [place] [address] [place] [address] 09/15/2020 00:00:00 09/17/2020 16:19:48 [id number] EYAD Bazzi [facility] [place] [address] [place] [address] 10/02/2020 00:00:00 10/02/2020 10:37:04 [id number] Gladis Alston MD [facility] Primary [facility] [place] [address] [place] [address] 01/20/2021 00:00:00 01/20/2021 18:01:59 [id number] Gladis Alston MD [facility] Primary [facility] [place] [address] [place] [address] 03/24/2021 00:00:00 2021 20:01:39 [id number] AKIN Verduzco [facility] [place] [address] [place] [address] 07/07/2021 00:00:00 07/07/2021 12:25:31 [id number] Gladis Alston MD [facility] Primary [facility] [place] [address] [place] [address] 07/20/2021 00:00:00 07/20/2021 20:43:33 [id number] Gladis Alston MD [facility] [place] [address] [place] [address] 02/10/2022 00:00:00 02/16/2022 11:30:05 [id number] Gladis Alston MD [facility] Primary [facility] [place] [address] [place] [address] 03/29/2022 00:00:00 03/29/2022 09:35:46 [id number] Gladis Alston MD [facility] Primary [facility] [place] [address] [place] [address] 06/16/2022 00:00:00 06/16/2022 09:43:15 [id number] Gladis Alston MD [facility] Primary [facility] [place] [address] [place] [address] 08/30/2022 17:09:02 09/21/2022 14:52:31 Aspiration pneumonia 905474292 J69.0 on matt abdullahi ample given of aldo chavez referral given [id number] Gladis Alston MD [facility] [place] [address] [place] [address] 09/28/2022 14:18:38 09/28/2022 15:03:14 [id number] Gladis Alston MD [facility] Primary [facility] [place] [address] [place] [address] 03/01/2023 14:04:17 03/01/2023 15:00:38 Adult health examination 562727278 Z00.00 Repeat mammogram due DEXA ordered by endocrinol rajni Declines vaccine at this time check fasting labs No longer needs cervical cancer screen Colonoscop y 08/23/21 no repeat needed Screening for disorder 068403582 Z13.9 Hypothyroidism 29688692 E03.[address] Beal Mammography abnormal 168 909083 R92.8 Essential hypertension 75022078 I10 stablechec k labs Hyperlipidemia 62208593 E78.5 Vitamin D deficiency 347 76976 E55.9 Cobalamin deficiency 190 623205 E53.8 Pain in throat 139601762 R07.0 call/retur n if no improvemen t in 1-2 days or sooner if needed reviewed s/s that warrant urgent/kenneth rgent eval in meantime [id number] Ellis Cai MD [facility] [place] [address] [place] [address] 05/03/2023 10:25:18 05/03/2023 11:34:46 Pain of left ankle joint 0535827581 1447726 M25.572 Closed fra cture of shaft of tibia 34664463 S82.202A [id number] Ellis Cai MD [facility] [place] [address] [place] [address] 05/12/2023 09:35:36 05/12/2023 10:02:41 Pain of left ankle joint 2052609701 7163593 M25.051 [id number] Ellis Cai MD [facility] [place] [address] [place] [address] 05/24/2023 10:35:54 05/24/2023 11:35:02 Pain of left ankle joint 7777343100 6543462 M25.318 [id number] Ellis Cai MD [facility] [place] [address] [place] [address] 06/21/2023 10:43:52 06/21/2023 11:06:13 Fracture of ankle 80530059 S82.92XA [id number] Ellis Cai MD [facility] [place] [address] [place] [address] 08/02/2023 11:23:37 08/02/2023 11:53:25 Fracture of ankle 55618967 S82.92XA [id number] Gladis Alston MD [facility] [address] [address] 08/22/2023 15:41:00 08/22/2023 16:19:25 Dysphagia 26858880 R13.10 saw GI at in february and scheduled for EGD but had to cancel due to her ankle surgerynee ds EGD reschedule dreferral given [id number] DARCY Soto [facility] [address] [address] 01/03/2024 11:49:24 01/03/2024 12:53:09 Renewal of prescription 852139890 Z76.0 Will refill meds as listed below. Essential hypertension 72921422 I10 150/78. Goal: 140/90BP is likely due to anxiety and being upset.Will refill meds as listed below. Seasonal allergy 1123113 04 J30.2 [id number] DARCY Soto [facility] [address] [address] 03/06/2024 10:51:27 03/06/2024 12:19:34 Respiratory tract congestion and cough 376844194 R05.9 Will treat as listed below. Patient will follow up as needed. [id number] Ellis Cai MD [facility] [address] 04/22/2024 10:01:05 04/22/2024 10:52:23 Pain of left ankle joint 3695803309 9013236 M25.572 Pain of le ft knee joint 2411665806 78726 M25.562 Mechanical complication of implant 821558709 T85.698A T84.039A [id number] Ellis Cai MD [facility] [place] [address] [place] [address] 05/01/2024 15:30:32 05/01/2024 16:21:20 Pain of multiple joints 20302359 M25.572 Pain of le ft knee joint 8085099284 09666 M25.562 Mechanical complication of implant 643824016 T85.698A [id number] EYAD Soto-Shnada [facility] [address] [place] [address] 05/22/2024 11:53:52 05/22/2024 12:38:13 Respiratory tract congestion and cough 913472979 R05.9 Discussed continuing OTC medication s as needed. [id number] Ellis Cai MD [facility] [place] [address] [place] [address] 07/01/2024 14:03:39 07/01/2024 15:21:42 Pain of left knee joint 9877076233 89792 M25.562 Bilateral osteoarthritis of knees 7594079664 73816 M17.0 [id number] DARCY Soto [facility] Primary Care [facility] [address] [facility] [place] [address] 08/20/2024 09:02:35 08/20/2024 10:06:24 Unable to cut own toenails 713466748 Z74.1 Sore throat 588802643 J0 2.9 Will check labs as listed below. Mammography abnormal 168 301558 R92.8 Was due for follow up in March. Wheezing 30029870 R06.2 lung sounds clear in office. Patient requesting chest x-ray. Generalize d aches and pains 95987076 R52 Patient refuses flu testing. Health Concerns Section Related Observation LastModified by Organization Detai ls LastModified Time None Recorded Concern Status LastModified by Organization Details LastModified Time None Recorded Advance Directives Directive N: Packet of information Payers Encounter Date Sequence Insurance Name Policy Number Policy Jha Covered Member ID Jha Member ID Guarantor Name 04/22/2024 1 [employer] (MEDICARE REPLACEMENT HMO) [id number] Idania Valencia Brimm [id number] Idania Bestimm 05/01/2024 1 [employer] (MEDICARE REPLACEMENT HMO) [id number] Idania Valencia Brimm [id number] Idania Bestimm 05/22/2024 1 [employer] (MEDICARE REPLACEMENT HMO) [id number] Idania Bestimm [id number] Idania Valencia Brimm 07/01/2024 1 [employer] (MEDICARE REPLACEMENT HMO) [id number] Idania Bestimm [id number] Idania Bestimm 08/20/2024 1 [employer] (MEDICARE REPLACEMENT HMO) [id number] Idania Valencia Brimm [id number] Idania Bestimm Notes Date Note Type Note Provider Name and Address Organization Details Recorded Time 05/22/2024 text/html Patient is a 79 year old female that presents to the office ambulatory with chaim, for initially for Medicare Wellness however after chart review patient had Medicare Wellness completed by Farhana Gr (Family Medicine) at [facility] in February.Discussed with patient that she could not be established with two primary care providers. Patient reports she no longer wants to see Farhana as she was unhappy with her care. Patient reports she is currently in therapy for a ruptured tendon in left knee related to taking Levofloxacin. Patient is going to therapy three times weekly-ordered by Dr. Cai. Patient also complaints of right ear discomfort, left sided neck discomfort, chest congestion, nonproductive cough and voice hoarseness.Left sided neck discomfort and hoarseness have been ongoing for several years and has several tests completed.Nonproduc tive cough, chest congestion and hoarseness have been ongoing for a few days. Patient has been taking Mucinex and Zyrtec which helps with symptoms. Eduardo Bradford, [employer]REE [employer]-C [address] [place] [address], [place], [address], [facility] [address] [facility] 05/22/2024 12:39:44 08/20/2024 text/html Patient is a 79 year old female that presents to the office for acute visit. Patient states I think I have had strep that was not treated appropriately and it has now affected my heart . Patient reports body aches across her chest and wheezing when she wakes up in the morning but she starts to feel better after a bit. Patient states her skin looks to be a different color to her and her voice is not normal. Patient reports chest heaviness and fatigue with exertion. Patient denies chest pain and shortness of breath at this time. Eduardo Bradford, TREE FARMER-C [address], [facility] [address], [place], [address], [place] [facility] [address] [place] [facility] 08/20/2024 10:06:35 OBGyn Episode No OBEpisode recorded.
--- OUTSIDE RECORDS SUMMARY | 2024-08-24 16:09 | XMS_ITS | CONTINUITY OF CARE DOCUMENT ---
Author Name triston goldstein Address Unknown Organization [facility] Address [address] [address] [place] [address] Phone [phone] Care Team Providers Care Construction Recruiter Name Role Phone Francine Wilks MD Unavailable [phone] Francine Wilks MD Unavailable [phone] INSURANCE PROVIDERS Payer name Policy type / Coverage type [place] red libertarian ID [employer] MEDICARE GOLD ADVANTAGE HMO Medicare [id number]
== END 2024-08-24 09:44 | disposition home or self-care (01) ==
PROVIDERS: PCP Nurse Practitioner Family; Visit Provider Nurse Practitioner Family
DX: R06.2 Wheezing (principal)
CPT/HCPCS: 71046

== ENCOUNTER 2024-08-28 05:46 | Emergency (ER) | payer MEDICARE, SELFPAY ==
[2024-08-28] VITALS (17 sets, daily range): BP systolic 114–154; BP diastolic 51–98; PULSE 76–97; RESP 13–17; TEMP 36.3; O2SAT 93–100
--- NOTE | ~2024-08-28 | XR_ITS ---
Portable chest x-ray Comparison: 08/24/2024 Clinical History: Dyspnea Findings: There is probable mild bibasilar pulmonary edema/atelectasis and/or scarring. Cardiomedia stinal silhouette is stable. Bones and soft tissues are unremarkable. Impression: Mild bibasilar pulmonary edema/atelectasis and/or scarring. Reviewed, dictated and finalized at location . Impression: Mild bibasilar pulmonary edema/atelectasis and/or scarring.
--- OUTSIDE RECORDS SUMMARY | 2024-08-28 05:49 | XMS_ITS | Data Portability ---
Author Organization Coleen DEAN Address [address] [facility] [place] [address] Assessment Encounter Date Assessment Date Assessment LastModified by Organization Details LastModified Time 03/13/2024 03/13/2024 Will get records from previous PCP and machinist brake . [email or web address] Not available 03/13/2024 19:01:17 Plan of Treatment Reminders Order Date Submit Date Provider Last Modified By Organization Details Last Modified Time Details Appointments None recorded. Lab lipid panel, serum 2023 [facility], [address] [place] [address], [address], [place], [address], 4 10:13:28 CMP, serum or plasma 2023 024 [email or web address], [address] [place] [address], [address], [place], [address], 4 15:40:45 CBC 2023 024 [facility], [address] [place] [address], [address], [place], [address], 4 10:13:33 TSH, ultra-sensi tive, serum 2023 024 [facility], [address] [place] [address], [address], [place], [address], 4 10:13:31 albumin/cre atinine, mass ratio, urine 2023 [facility], [address] [facility], [address], [place], [address], 10:13:26 Referral None recorded. Procedures None recorded. Surgeries None recorded. Imaging None recorded. Medication Orders estradiol 0.05 mg/24 hr weekly transdermal patch 2023 [id number], [address], [place], [id number], 19:04:46 ramipril 10 mg capsule 2023 [facility] #[id number], [address], [place], [id number], 19:04:46 Patient TargetsNo targets recorded. Patient InstructionsNo instructions recorded. Reason for Referral None Reported. Results Created Date Observation Date Name Description Value Unit Range Abnormal Flag Note LastModifiedBy Organization Detail LastModifiedTime 03/25/20 24 03/26/2024 ALBUM IN/CR EATIN INE RATIO ,URIN E creatinine, urine 105.1 mg/dL notest ab. Not Available [facility] ([facility]) [address] [place], [address], 03/26/2024 10:13:26 03/25/20 24 03/26/2024 ALBUM IN/CR EATIN INE RATIO ,URIN E albumin, urine <3.0 ug/mL notest ab. Not Available [facility] ([facility]) [address] [place], [address], 03/26/2024 10:13:26 03/25/20 24 03/26/2024 ALBUM IN/CR EATIN INE RATIO ,URIN E alb/creat ratio <3 Liz l: 0 - 29 Moder ately incre ased: 30 - 300 Sever uziel incre ased: >300 Not Available [facility] ([facility]) [address] [facility] [place], [address], 03/26/2024 10:13:26 03/25/20 24 03/26/2024 LIPID PANEL cholesterol, total 222 mg/dL 100-19 9 above high normal Not Available [facility] ([facility]) [address] [facility] [place], [address], 03/26/2024 10:13:28 03/25/20 24 03/26/2024 LIPID PANEL triglyceride s 108 mg/dL 0-149 Not Available [facility] ([facility]) [address] [facility] [place], [address], 03/26/2024 10:13:28 03/25/20 24 03/26/2024 LIPID PANEL HDL cholesterol 53 mg/dL >39 Not Available [facility] ([facility]) [address] [place], [address], 03/26/2024 10:13:28 03/25/20 24 03/26/2024 LIPID PANEL VLDL cholesterol silvestre 19 mg/dL 5-40 Not Available [facility] ([facility]) [address] [place], [address], 03/26/2024 10:13:28 03/25/20 24 03/26/2024 LIPID PANEL LDL chol calc ([facility]) 150 mg/dL 0-99 above high normal Not Available [facility] ([facility]) [address] [place], [address], 03/26/2024 10:13:28 03/25/20 24 03/26/2024 COMP. METAB OLIC PANEL (14) glucose 119 mg/dL 70-99 above high normal Not Available [facility] ([facility]) [address] [place], [address], 03/26/2024 10:13:29 03/25/20 24 03/26/2024 COMP. METAB OLIC PANEL (14) BUN 12 mg/dL 8-27 Not Available [facility] ([facility]) [address] [facility] [place], [address], 03/26/2024 10:13:29 03/25/20 24 03/26/2024 COMP. METAB OLIC PANEL (14) creatinine 0.88 mg/dL 0.57-1 .00 Not Available [facility] ([facility]) [address] [facility] [place], [address], 03/26/2024 10:13:29 03/25/20 24 03/26/2024 COMP. METAB OLIC PANEL (14) eGFR 67 mL/mi n/1.7 3 >59 Not Available [facility] ([facility]) [address] [facility] [place], [address], 03/26/2024 10:13:29 03/25/20 24 03/26/2024 COMP. METAB OLIC PANEL (14) BUN/creatini ne ratio 14 12-28 Not Available [facility] ([facility]) [address] [facility] [place], [address], 03/26/2024 10:13:29 03/25/20 24 03/26/2024 COMP. METAB OLIC PANEL (14) sodium 140 mmol/ L 134-14 4 Not Available [facility] ([facility]) [address] [facility] [place], [address], 03/26/2024 10:13:29 03/25/20 24 03/26/2024 COMP. METAB OLIC PANEL (14) potassium 4.8 mmol/ L 3.5-5. 2 Not Available [facility] ([facility]) [address] [facility] [place], [address], 03/26/2024 10:13:29 03/25/20 24 03/26/2024 COMP. METAB OLIC PANEL (14) chloride 103 mmol/ L 96-106 Not Available [facility] ([facility]) [address] [facility] [place], [address], 03/26/2024 10:13:29 03/25/20 24 03/26/2024 COMP. METAB OLIC PANEL (14) carbon dioxide, total 25 mmol/ L Not Available [facility] ([facility]) [address] [facility] [place], [address], 03/26/2024 10:13:29 03/25/20 24 03/26/2024 COMP. METAB OLIC PANEL (14) calcium 9.1 mg/dL 8.7-10 .3 Not Available [facility] ([facility]) [address] [place], [address], 03/26/2024 10:13:29 03/25/20 24 03/26/2024 COMP. METAB OLIC PANEL (14) protein, total 6.1 g/dL 6.0-8. 5 Not Available [facility] ([facility]) [address] [facility] [place], [address], 03/26/2024 10:13:29 03/25/20 24 03/26/2024 COMP. METAB OLIC PANEL (14) albumin 3.9 g/dL 3.8-4. 8 Not Available [facility] ([facility]) [address] [facility] [place], [address], 03/26/2024 10:13:29 03/25/20 24 03/26/2024 COMP. METAB OLIC PANEL (14) globulin, total 2.2 g/dL 1.5-4. 5 Not Available [facility] ([facility]) [address] [facility] [place], [address], 03/26/2024 10:13:29 03/25/20 24 03/26/2024 COMP. METAB OLIC PANEL (14) bilirubin, total 0.6 mg/dL 0.0-1. 2 Not Available [facility] ([facility]) [address] [facility] [place], [address], 03/26/2024 10:13:29 03/25/20 24 03/26/2024 COMP. METAB OLIC PANEL (14) alkaline phosphatase 84 IU/L 44-121 Not Available [facility] ([facility]) [address] [facility], [place], [address], 03/26/2024 10:13:29 03/25/20 24 03/26/2024 COMP. METAB OLIC PANEL (14) AST (SGOT) 14 IU/L 0-40 Not Available [facility] ([facility]) [address] [facility], [place], [address], 03/26/2024 10:13:29 03/25/20 24 03/26/2024 COMP. METAB OLIC PANEL (14) ALT (SGPT) 17 IU/L 0-32 Not Available [facility] ([facility]) [address] [facility], [place], [address], 03/26/2024 10:13:29 03/25/20 24 03/26/2024 TSH RFX ON ABNOR MAL TO FREE T4 TSH 5.200 uIU/m L 0.450- 4.500 above high normal Not Available [facility] ([facility]) [address] [facility], [place], [address], 03/26/2024 10:13:30 03/25/20 24 03/26/2024 T4F T4,free (direct) 1.11 NG/dL 0.82-1 .77 Not Available [facility] ([facility]) [address] [facility], [place], [address], 03/26/2024 10:13:32 03/25/20 24 03/26/2024 CBC, PLATE LET, NO DIFFE RENTI AL WBC 5.7 x10e3 /uL 3.4-10 .8 Not Available [facility] ([facility]) [address] [facility], [place], [address], 03/26/2024 10:13:32 03/25/20 24 03/26/2024 CBC, PLATE LET, NO DIFFE RENTI AL RBC 4.84 x10e6 /uL 3.77-5 .28 Not Available [facility] ([facility]) [address] [facility], [place], [address], 03/26/2024 10:13:32 03/25/20 24 03/26/2024 CBC, PLATE LET, NO DIFFE RENTI AL hemoglobin 14.5 g/dL 11.1-1 5.9 Not Available [facility] ([facility]) [address] [facility], [place], [address], 03/26/2024 10:13:32 03/25/20 24 03/26/2024 CBC, PLATE LET, NO DIFFE RENTI AL hematocrit 44.2 % 34.0-4 6.6 Not Available [facility] ([facility]) [address] [facility], [place], [address], 03/26/2024 10:13:32 03/25/20 24 03/26/2024 CBC, PLATE LET, NO DIFFE RENTI AL MCV 91 fL 79-97 Not Available [facility] ([facility]) [address] [facility], [place], [address], 03/26/2024 10:13:32 03/25/20 24 03/26/2024 CBC, PLATE LET, NO DIFFE RENTI AL MCH 30.0 pg 26.6-3 3.0 Not Available [facility] ([facility]) [address] [facility], [place], [address], 03/26/2024 10:13:32 03/25/20 24 03/26/2024 CBC, PLATE LET, NO DIFFE RENTI AL MCHC 32.8 g/dL 31.5-3 5.7 Not Available [facility] ([facility]) [address] [facility], [place], [address], 03/26/2024 10:13:32 03/25/20 24 03/26/2024 CBC, PLATE LET, NO DIFFE RENTI AL RDW 11.9 % 11.7-1 5.4 Not Available [facility] ([facility]) [address] [facility], [place], [address], 03/26/2024 10:13:32 03/25/20 24 03/26/2024 CBC, PLATE LET, NO DIFFE RENTI AL platelets 276 x10e3 /uL 150-45 0 Not Available [facility] ([facility]) [address] [facility], [place], [address], 03/26/2024 10:13:32 Result Notes None recorded. Procedures Surgical History Date Name Laterality Status Provider Name and Address Organization Details Recorded Time Total hysterectomy completed DUDLEY Bravo [facility] 03/13/2024 10:35:37 procedure on ankle completed Bruna Biggs [place] [facility] 03/13/2024 10:35:57 leg repair completed Bruna Biggs MA [facility] 03/13/2024 10:36:15 procedure on nose completed Bruna east [place] - [facility] 03/13/2024 10:37:02 Imaging Results None recorded. Procedure Notes None recorded. Medical Equipment None Reported. Allergies Allergen ID Allergen Name Allergen Category Reaction Reaction Severity Criticality Documentation Date Start Date Code Code System Note Provider Name and Address Organization Details Recorded Time 756012 clindamyc in Not available other mild high 03/13/2024 2582 RxNoDUDLEY [place] [facility] 4 10:31:39 997694 doxycycli ne Not available other moderate low 03/13/2024 3640 RxNoDUDLEY [place] [facility] 4 10:31:59 885465 levothyro xine sodium medicatio n Not available Not available Not available 03/13/2024 14148 RxNoDUDLEY [place]eta [place] 4 10:32:14 898990 sulfameth oxazole / trimethop rim medicatio n Not available Not available Not available 03/13/2024 08505 RxNoDUDLEY Mendieta [facility] 4 10:32:32 790149 Product containin g penicilli n (product) medicatio n Not available Not available Not available 03/13/2024 97630 8001 SNOMED DUDLEY Bravo, [facility] 4 10:32:47 175590 Levaquin medicatio n Not available Not available Not available 03/13/2024 62151 2 RxNorm Bruna Biggs [place] null, [place] [facility] 4 10:32:57 Medications Name Sig Start Date [...] Address Organization Details Last Updated DateTime 4 50275.5 8 g 36.4 kg/m2 162.56 cm 97.7 [degF] 97 % 97 % 99 /min 122 mm[Hg] 80 mm[Hg] Bruna Biggs [place] - [facility] 4 10:42:38 Social History Question Answer Notes LastModified by Organizat ion Details LastModified Time Tobacco Smoking Status Never Smoker Bruna Biggs [place] null, [place] - [facility] 03/13/2024 10:35:25 What Is Your [...] Response Coronary Artery Disease N Other N Atrial Fibrillation N High Blood Pressure Y Kidney or Bladder Problems Y Thyroid Problems N GI Problems N Depression N COPD N Blood Clots N Have you had a mammogram in the last yea r? Y Eating Disorder N Skin Problems N Anemia N Heart Attack (DE) N Anxiety Disorder N Diabetes N Muscle, [...] SNOMED-CT Code Diagnosis ICD10 Code Diagnosis Note [id number] Farhana Gr MD [facility] ([facility]) [address] [place] [phone] 03/13/2024 10:14:45 03/19/2024 11:29:02 Essential hypertension 00575405 I10 Due for yearly fasting blood work. Since she at [facility] today will return for fasting blood tests and urine. Blood pressure good today. Continue present medication . Jaw pain [id number] R68.8 4 She has seen a dentist [...] discontinu e the aspirin. Irritable bowel syndrome 64255258 K58.9 Varicose v eins of lower extremity 28620628 I83.93 History of leukemia 1614 69468 Z85.6 Will get a CBC. Rhinitis [id number] J00 Continue allergy medication as needed. Menopausal flushing 1983 82477 N95.1 I told her that the Estradiol [...] s without success. History of pneumonia 161 197258 Z87.01 She just completed the Zithromax and [...] - [employer] (MEDICARE REPLACEMENT/ ADVANTAGE - HMO) [id number] Idania Feliciano [id number] Idania Feliciano Notes Date Note Type Note [...] the left side, was referred to a machinist brake, had PFTs, not sure what the problem [...] stroke Farhana Gr MD Attn: Accounting,[address] [facility], [place], [address], [facility] 03/13/2024 19:05:01 OBGyn Episode No OBEpisode recorded.
--- OUTSIDE RECORDS SUMMARY | 2024-08-28 05:49 | XMS_ITS | Clinical Summary ---
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 Gender Identity Not on file Sexual Orientation Not on file Plan of Treatment Upcoming Encounters Date Type Department Care Team (Late st Contact Info) Description 09/04/2024 3:00 PM CDT Office Visit [facility] [address] [address] Ame Decker MD [address] [place] [address] Health Maintenance Due Date Last Done Comments DTAP/TDAP/TD VACCINES (1 - Tdap) 1964 PNEUMOCOCCAL VACCINE 50+ YEARS (1 of 1 - PCV) 04/19/19 95 ZOSTER VACCINE (1 of 2) 1995 OSTEOPOROSIS SCREENING 2010 RSV VACCINE (60+ or ) (1 - 1-dose 75+ series) 2020 INFLUENZA VACCINE (#1) 2023 Insurance [employer] HMO MCR
--- OUTSIDE RECORDS SUMMARY | 2024-08-28 05:49 | XMS_ITS | Data Portability ---
Author Organization [place] - [facility] [employer], Main Office Address [address] [place] [address] Care Team Providers Care Medical Transcription Name Role Phone EDUARDO BRADFORD Primary Care Provider EDUARDO BRADFORD Referring Provider Assessment Encounter Date Assessment Date Assessment LastModified [...] ambulate and no longer needs assistance with dll-sf-sznbs activities. She takes a daily aspirin for [...] available Lab culture, aerobic, throat 2024 025 [facility] (Lab), [address] [place], [address], 08/22/2024 09:24:10 rapid strep group A, throat 2024 025 [facility] [place], [address] [place] [address] Drive [address], [place], [address], 08/20/2024 10:14:17 ESR (erythroc yte sedimenta tion rate), blood 2023 024 [facility] (Lab), [address] [place], [address], 04/22/2024 14:09:08 C-reactiv e protein, quantitat handy, serum or plasma 2023 024 [facility] (Lab), [address] [place], [address], 04/22/2024 14:00:21 Referral podiatris t referral - Please call patient to schedule an appointme nt. Thank you. 2024 025 KODY Nayak DPM, [address] [facility], [address], [place], [address], 08/20/2024 15:43:53 physical therapist referral - Please contact pt to schedule apt for L knee. thanks 2024 025 [facility], [address], [place], [address], 05/06/2024 16:53:10 Procedures None recorded. Surgeries None recorded. Imaging XR, chest, 2 view 2024 025 [facility], [address], [place], [address], 08/24/2024 14:01:48 MAMMO, diagnosti c, digital, unilatera l - Please call patient to schedule. 2024 025 [facility], [address], [address], [place], [address], 08/20/2024 15:18:01 XR, knee 2023 024 [email or web address] [facility], [facility], [place], [address], 04/23/2024 14:44:16 Medication Orders Mobic 15 mg tablet 2024 025 [id number], [address], [place], [id number], 08/20/2024 09:16:19 Patient TargetsNo targets recorded. Patient InstructionsNo instructions recorded. Reason for Referral Physical Therapist Referral for Pain of left knee joint L knee Please contact pt to schedule apt for L knee. thanks Referring Physician: Ellis Cai, Orthopedic Surgery, Encounter Date: 05/01/2024 Manager Ccu Referral for Unab le to cut own toenails Please call patient to schedule an appointment. Thank you. Referring Physician: Eduardo Bradford, Family Medicine, Encounter Date: 08/20/2024 Results Created Date Observation Date Name Description Value Unit Range Abnormal Flag Note LastModifiedBy Organization Detail LastModifiedTime 08/21/19 25 08/20/2024 rapid strep group A, throa t STREP A negati ve Not Available [facility] [address], [place], [address], 08/20/2024 09:41:20 04/22/20 24 XR, knee No observ ation record ed. [email or web address] [facility] [place] [address], [place], [address], 04/23/2024 14:44:14 08/25/19 25 08/24/2024 XR, chest , 2 view No observ ation record ed. [facility] [address], [place], [address], 08/26/2024 10:16:46 Result Notes None recorded. Problems Name Problem SNOMED Code Status Onset Date Resolution Date Notes Provider Name and Address Organization Details Recorded Time Diverticu litis 157090830 Active 2020 Not Available [facility] 3 22:43:15 Osteopeni a 882676305 Active 2020 DEXA 03/14 Not Available [facility] 3 22:43:15 Sinusitis 27394259 Active 2020 Not Available [facility] 3 22:43:15 Hypertens handy disorder 84209455 Active 2020 Not Available [facility] 3 22:43:15 Hypothyro idism 44183098 Active 2020 Not Available [facility] 3 22:43:15 Chronic myeloid leukemia in remission 82528710 Active 2020 Not Available [facility] 3 22:43:15 Chronic myeloid leukemia 47681450 Completed 202001/20/2021 Not Available [facility] 3 22:43:15 Aspiratio n pneumonia 217932575 Active 2022 Gladis Alston MD [address], [address], [place], [address] , [employer] [facility] [employer] 3 17:53:07 Allergic rhinitis 22308943 Active 2022 Gladis Alston MD [address], [address], [place], [address] , [place] [facility] [employer] 3 15:10:53 Cough 86161741 Active 2022 Gladis Alston MD [address], [address], [address] , [facility] 3 17:43:49 Acute sinusitis 42637137 Active 2022 Gladis Alston MD [address], [address], [address] , [facility] 3 16:57:28 Mammograp hy abnormal 469741039 Active 2022 Gladis Alston MD [address], [address], [address] , [facility] [employer] [facility] 3 14:37:52 Essential hypertens ion 14046349 Active 2022 Gladis Alston MD [address], [address], [address] , [facility] [employer] [facility] 3 14:40:01 Hyperlipi demia 47794736 Active 2022 Gladis Alston MD [address], [address], [address] , [facility] [employer] [facility] 3 14:40:11 Vitamin D deficienc y 54527422 Active 2022 Gladis Alston MD [address], [address], [address] , [facility] [employer] [facility] 3 14:40:21 Cobalamin deficienc y 443392392 Active 2022 Gladis Alston MD [address], [address], [address] , [facility] [employer] [facility] 3 14:40:38 Pain in throat 189419380 Active 2022 Gladis Alston MD [address], [address], [address] , [facility] [employer] [facility] 3 14:44:30 Pain of left ankle joint 03569844228 136488 Active 2023 Radha Rosenberg ATC L null, [place] [facility] 4 10:51:15 Closed fracture of shaft of tibia 19572030 Active 2023 Ellis Cai MD [address], [address], [place], [address] , [facility] 4 12:23:05 Closed fracture of shaft of tibia 48623312 Active 2023 ROSE Valentine null, [facility] 4 16:14:55 Fracture of ankle 46557631 Active 2023 Gladis lAston MD [address], [address], [place], [address] , [facility] 4 14:56:11 Dysphagia 65530762 Active 2023 Gladis Alston MD [address], [address], [place], [address] , [facility] 4 16:08:55 Seasonal allergy 817429054 Active 2023 DARCY Calderon [address] [facility], [address], [place], [address] , [facility] 4 14:03:26 Respirato ry tract congestio n and cough 227188067 Active 2023 DARCY Soto [address] [facility] [facility], [address], [place], [address] , [facility] 4 11:12:53 Pain of left knee joint 69531398439 4107 Active 2023 Radha Rosenberg ATC L null, [place] - [facility] 4 10:27:48 Mechanica l complicat ion of implant 735538445 Active 2023 Radha Rosenberg ATC L null, [place] [facility] 4 10:38:03 Pain of multiple joints 40564210 Active 2024 Tayla Russell, RMShayna chirinos, [facility] [employer] [facility] 5 15:37:55 Bronchiti s 32874629 Active 2024 AKIN Vergara [address], [address], [place], [address] , [facility] [employer] 5 10:26:36 Bilateral osteoarth ritis of knees 23305399944 9107 Active 2024 Nohelia Berry PA-C [address], [address], [place], [address] , [employer] [facility] [employer] 5 19:52:07 Sore throat 809687832 Active 2024 DARCY Soto [address], [address], [place], [address] , [facility] [employer] [facility] [employer] 5 09:40:55 Wheezing 65027446 Active 2024 DARCY Soto [address], [address], [place], [address] , [employer] [facility] [employer] 5 09:52:21 Generaliz ed aches and pains 37247300 Active 2024 DARCY [address], [address], [place], [address] , [facility] [employer] [facility] [employer] 5 10:05:36 Problem Notes None recorded. Procedures Surgical History Date Name Laterality Status Provider Name and Address Organization Details Recorded Time 05/22/19 25 Medicare Wellness CPT Code, subsequent completed Stella Long RN [facility] [employer] 05/22/2024 11:59:06 03/06/20 24 Medicare Wellness CPT Code, subsequent completed Stella Long RN [facility] [employer] [facility] 03/06/2024 10:53:40 03/01/20 23 Medicare Wellness CPT Code, subsequent completed Stella Long RN [facility] [employer] [facility] 03/01/2023 14:07:38 01/01/20 12 Ankle Surgery completed Radha Rosenberg, ATC L [employer] 05/03/2023 10:49:53 reconstructive orthopedic procedure completed Not Available [facility] 06/22/2022 22:42:41 Hysterectomy completed Not Available [facility] 06/22/2022 22:42:41 Imaging Results Imaging Date Name Status LastModified by Organiz ation Details LastModified Time 04/22/2024 XR, knee completed [email or web address] [facility] [address] [facility], [place], [address], 04/23/2024 14:44:14 08/24/2024 XR, chest, 2 view completed [facility] [address] [facility] [address], [place], [address], 08/26/2024 10:16:46 Procedure Notes None recorded. Medical Equipment None Reported. Allergies Allergen ID Allergen Name Allergen Category Reaction Reaction Severity Criticality Documentation Date Start Date Code Code System Note Provider Name and Address Organization Details Recorded Time 10395 sulfameth oxazole / trimethop rim medicatio n rash Not available Not available 06/22/2022 94192 RxNorm Not Available [facility] 3 22:44:09 00609 Product containin g penicilli n (product) medicatio n Not available Not available Not available 06/22/2022 76220 8001 SNOMED can baldemar ate cepha lexin Gladis Alston MD [address] [facility], [address], [place], [address] [facility] [email or web address] 3 14:30:55 44359 levothyro xine sodium medicatio n Not available Not available Not available 06/22/2022 90962 RxNorm Not Available [facility] 3 22:44:09 00440 codeine medicatio n Not available Not available Not available 06/22/2022 2670 RxNorm Not Available [facility] 3 22:44:10 02162 clindamyc in Not available Not available Not available Not available 06/22/2022 2582 RxNorm Not Available [facility] 3 22:44:10 65576 Cipro medicatio n Not available Not available Not available 06/22/202287448 3 RxNorm ruptu red ligam ent Not Available [facility] 3 22:44:10 13007 albuterol medicatio n Not available Not available Not available 06/22/2022 435 RxNorm cause d major fluct uatio ns in blood press ure Not Available [facility] 3 22:44:10 50292 doxycycli ne Not available Not available Not available Not available 03/01/2023 3640 RxNorm Gladis Alston MD [address] [facility], [address], [place], [address], [facility] [employer] 3 14:30:35 Medications Name Sig Start Date [...] Updated DateTime 04/22/2024 167.64 cm 32.4 kg/m2 59972.07 g 6 ROSE Valentine [place] - [facility] [employer] 04/22/2024 10:04:44 Date Recorded Body height Body mass index (BMI) Body weight Pain severity - 0-10 verbal numeric rating [Score] - Reported Provider Name and Address Organization Details Last Updated DateTime 05/01/2024 167.64 cm 32.4 kg/m2 52022.07 g 8 Tayla Yvonne [facility] [employer] [facility] 05/01/2024 15:35:20 Date Recorded Body height Body mass index (BMI) Body weight Body temperature Heart rate Oxygen saturation Oxygen saturation in Arterial blood by Pulse oximetry Systolic blood pressure Diastolic blood pressure Provider Name and Address Organization Details Last Updated DateTime 167.64 cm 32.9 kg/m2 30128.8 4 g 97.2 [degF] 101 /min 94 % 94 % 144 mm[Hg] 70 mm[Hg] Stella Long RN [facility] [employer] [facility] 12:04:49 Date Recorded Body height Body mass index (BMI) Body weight Provider Name and Address Organization Details Last Updated DateTime 07/01/2024 167.64 cm 32.4 kg/m2 01666.07 g Bree Mara [facility] [employer] [facility] 07/01/2024 14:09:20 Date Recorded Body height Body mass index (BMI) Body weight Body temperature Heart rate Oxygen saturation Oxygen saturation in Arterial blood by Pulse oximetry Systolic blood pressure Diastolic blood pressure Provider Name and Address Organization Details Last Updated DateTime 167.64 cm 33.1 kg/m2 72086.4 4 g 96.4 [degF] 77 /min 96 % 96 % 140 mm[Hg] 108 mm[Hg] Alfonso Ynes Shayna [facility] [employer] [facility] 09:27:29 Social History Question Answer Notes LastModified by Organization Details LastModified Time Tobacco Smoking Status Never Smoker Brittany chirinos [facility] [employer] [facility] 03/01/2023 14:05:08 Do You Have An Advance Directive? No Packet Of Information [id number] Information not available 06/22/2022 What Is Your Level Of Alcohol Consumption? None [id number] [id number] Information not available 06/22/2022 Are You Blind Or Do You Have Difficulty Seeing? No Glasses [email or web address] Information not available 03/01/2023 What Is Your Level Of Caffeine Consumption? Occasional [id number] [id number] Information not available 06/22/2022 How Much Tobacco Do You Chew? None [id number] [id number] Information not available 06/22/2022 In The 14 Days Before Symptom Onset, Have You Had Close Contact With A Laboratory-conf irmed COVID-19 While That Case Was Ill? No [email or web address] Information not available 03/01/2023 In The 14 Days Before Symptom Onset, Have You Had Close Contact With A Person Who Is Under Investigation For COVID-19 While That Person Was Ill? No Information not available 08/20/2024 Are You Currently Employed? No Retired Information not available 08/20/2024 Are You Deaf Or Do You Have Serious Difficulty Hearing? No [email or web address] Information not available 03/01/2023 What Type Of Diet Are You Following? REGULAR [id number] Information not available 06/22/2022 Which Illicit Or Recreational Drugs Have You Used? None [email or web address] Information not available 03/01/2023 Do You Or Have You Ever Used E-cigarettes Or Vape? Never Used Electronic Cigarettes [email or web address] Information not available 03/01/2023 Have There Been Any Changes To Your Family Or Social Situation? No [email or web address] Information not available 03/01/2023 Are There Any Guns Present In Your Home? No [email or web address] Information not available 03/01/2023 Do You Use Insect Repellent Routinely? No Doesn't Go Outside Much [email or web address] Information not available 03/01/2023 Where [facility] You Live? [facility] Information not available 08/20/2024 Do You Have A Medical Power Of Celluloid Trimmer? No [email or web address] Information not available 03/01/2023 What Was The [...] Carbon Monoxide Detectors In Your Home? Yes Information not available 03/01/2023 Are You Passively Exposed To Smoke? No Information not available 08/20/2024 Do You Or Have You Ever Used Smokeless Tobacco? Never Used Smokeless Tobacco MIGRATION.0301 [id number] Information not available 06/22/2022 Are There Any Smokers In Your House? No Information not available 08/20/2024 How Much Tobacco Do You Smoke? No MIGRATION.300 [id number] Information not available 06/22/2022 Do You Participate In Social Media? No Information not available 08/20/2024 Do You Feel Stressed (tense, Restless, Nervous, Or Anxious, Or Unable To Sleep At Night)? [id number] Information not available 08/20/2024 Do You Use Any Illicit Or Recreational Drugs? No [email or web address] Information not available 03/01/2023 Do You Use Sunscreen Routinely? No [email or web address] Information not available 03/01/2023 How Many Years Have You Smoked Tobacco? 0 [email or web address] Information not available 03/01/2023 Have You Recently Traveled Abroad? No [email or web address] Information not available 03/01/2023 Are You Currently In School? No Information not available 08/20/2024 Do You Have Any Dietary Restrictions? No Information not available 08/20/2024 Do You Or Have You Ever Used Any Other Forms Of Tobacco Or Nicotine? No [email or web address] Information not available 03/01/2023 Sex: Unknown Functional Status Question Answer Note LastModified by Organizat ion Details LastModified Time Do you have difficulty walking or climbing stairs? Yes a little but very cautious [email or web address] Information not available 03/01/2023 Do you have transportation difficulties? No Information not available 03/01/2023 Are you able to walk? [email or web address] Information not available 03/01/2023 Do you have difficulty doing errands alone? No [email or web address] Information not available 03/01/2023 Are you able to care for yourself? Yes [email or web address] Information n ot available 03/01/2023 Do you have difficulty dressing or bathing? No [email or web address] Information not available 03/01/2023 What is your exercise level? Occasional [id number] Information not available 06/22/2022 Mental Status Question Answer Note LastModified by Organization D etails LastModified Time Do you have difficulty concentrating, remembering or making decisions? No Information no t available 03/01/2023 Family History Relationship Description Onset Age of this Age Resolved Age Notes LastModified by Organization Details LastModified Time Mother Diabetes mellitus [id number] Not available 06/22/2022 22:42:42 Mother Congestive heart failure [email or web address] Not available 10:51:54 Mother Cerebrovascu lar accident [email or web address] Not available 03/06/2024 10:51:54 Father Parkinson's disease [email or web address] Not available 10:51:54 Sister Family history of malignant neoplasm [email or web address] Not available 10:51:54 Medical History Condition Response LUNG DISEASE/DISORDER Y HEART DISEASE/HEART PROBLEMS Y HYPERTENSION Y CANCER: SPECIFY Y Gynecological History Statement/Question Response How many [...] SNOMED-CT Code Diagnosis ICD10 Code Diagnosis Note [id number] Gladis Alston MD [facility] [place] [address] [place] [address] 09/15/2020 00:00:00 09/17/2020 16:19:48 [id number] EYAD Bazzi [facility] [place] [address] [place] [address] 10/02/2020 00:00:00 10/02/2020 10:37:04 [id number] Gladis Alston MD [facility] [place] [address] [place] [address] 01/20/2021 00:00:00 01/20/2021 18:01:59 [id number] Gladis Alston MD [facility] [place] [address] [place] [address] 03/24/2021 00:00:00 2021 20:01:39 [id number] AKIN Verduzco [facility] [place] [address] [place] [address] 07/07/2021 00:00:00 07/07/2021 12:25:31 [id number] Gladis Alston MD [facility] [place] [address] [place] [address] 07/20/2021 00:00:00 07/20/2021 20:43:33 [id number] Gladis Alston MD [facility] [place] [address] [place] [address] 02/10/2022 00:00:00 02/16/2022 11:30:05 [id number] Gladis Alston MD [facility] [place] [address] [place] [address] 03/29/2022 00:00:00 03/29/2022 09:35:46 [id number] Gladis Alston MD [facility] [place] [address] [place] [address] 06/16/2022 00:00:00 06/16/2022 09:43:15 [id number] Gladis Alston MD [facility] [place] [address] [place] [address] 08/30/2022 17:09:02 09/21/2022 14:52:31 Aspiration pneumonia 774039762 J69.0 on matt abdullahi ample given of aldo chavez referral given [id number] Gladis Alston MD [facility] [place] [address] [place] [address] 09/28/2022 14:18:38 09/28/2022 15:03:14 [id number] Gladis Alston MD [facility] [place] [address] [place] [address] 03/01/2023 14:04:17 03/01/2023 15:00:38 Adult health examination 754415123 Z00.00 Repeat mammogram due DEXA ordered by endocrinol rajni Declines vaccine at this time check fasting labs No longer needs cervical cancer screen Colonoscop y 08/23/21 no repeat needed Screening for disorder 918829049 Z13.9 Hypothyroidism 84257367 E03.[address] Beal Mammography abnormal 168 344490 R92.8 Essential hypertension 77237199 I10 stablechec k labs Hyperlipidemia 80675868 E78.5 Vitamin D deficiency 347 80650 E55.9 Cobalamin deficiency 190 759828 E53.8 Pain in throat 147524078 R07.0 call/retur n if no improvemen t in 1-2 days or sooner if needed reviewed s/s that warrant urgent/kenneth rgent eval in meantime [id number] Ellis Cai MD [facility] [place] [address] [place] [address] 05/03/2023 10:25:18 05/03/2023 11:34:46 Pain of left ankle joint 8646501327 8766506 M25.572 Closed fra cture of shaft of tibia 81657790 S82.202A [id number] Ellis Cai MD [facility] [place] [address] [place] [address] 05/12/2023 09:35:36 05/12/2023 10:02:41 Pain of left ankle joint 2724045927 4470745 M25.651 [id number] Ellis Cai MD [facility] [place] [address] [place] [address] 05/24/2023 10:35:54 05/24/2023 11:35:02 Pain of left ankle joint 2649413233 9864961 M25.449 [id number] Ellis Cai MD [facility] [place] [address] [place] [address] 06/21/2023 10:43:52 06/21/2023 11:06:13 Fracture of ankle 97293657 S82.92XA [id number] Ellis Cai MD [facility] [place] [address] [place] [address] 08/02/2023 11:23:37 08/02/2023 11:53:25 Fracture of ankle 39187907 S82.92XA [id number] Gladis Alston MD [facility] [address] [place] [address] 08/22/2023 15:41:00 08/22/2023 16:19:25 Dysphagia 90671886 R13.10 saw GI at in february and scheduled for EGD but had to cancel due to her ankle surgerynee ds EGD reschedule dreferral given [id number] DARCY Soto [facility] [address] [place] [address] 01/03/2024 11:49:24 01/03/2024 12:53:09 Renewal of prescription 107855903 Z76.0 Will refill meds as listed below. Essential hypertension 21425514 I10 150/78. Goal: 140/90BP is likely due to anxiety and being upset.Will refill meds as listed below. Seasonal allergy 9750119 04 J30.2 [id number] DARCY Soto [facility] [address] [place] [address] 03/06/2024 10:51:27 03/06/2024 12:19:34 Respiratory tract congestion and cough 002709888 R05.9 Will treat as listed below. Patient will follow up as needed. [id number] Ellis Cai MD [facility]_[address] [address] 04/22/2024 10:01:05 04/22/2024 10:52:23 Pain of left ankle joint 1967496773 0324817 M25.572 Pain of le ft knee joint 8091579524 03112 M25.562 Mechanical complication of implant [id number] T85.698A T84.039A [id number] Ellis Cai MD [facility] [place] [address] [place] [address] 05/01/2024 15:30:32 05/01/2024 16:21:20 Pain of multiple joints [id number] M25.572 Pain of le ft knee joint [id number] 06885 M25.562 Mechanical complication of implant [id number] T85.698A [id number] EYAD Soto-Shanda [facility] Primary Care [facility] [address] [place] [address] 05/22/2024 11:53:52 05/22/2024 12:38:13 Respiratory tract congestion and cough [id number] R05.9 Discussed continuing OTC medication s as needed. [id number] Ellis Cai MD [facility] [place] [address] [place] [address] 07/01/2024 14:03:39 07/01/2024 15:21:42 Pain of left knee joint [id number] 71843 M25.562 Bilateral osteoarthritis of knees [id number] 73801 M17.0 [id number] DARCY Soto [facility] [address] [place] [address] 08/20/2024 09:02:35 08/20/2024 10:06:24 Unable to cut own toenails [id number] Z74.1 Sore throat [id number] J0 2.9 Will check labs as listed below. Mammography abnormal 168 [id number] R92.8 Was due for follow up in March. Wheezing 73422939 R06.2 lung sounds clear in office. Patient requesting chest x-ray. Generalize d aches and pains [id number] R52 Patient refuses flu testing. Health Concerns Section Related Observation LastModified by Organization Detai ls LastModified Time None Recorded Concern Status LastModified by Organization Details LastModified Time None Recorded Advance Directives Directive N: Packet of information Payers Encounter Date Sequence Insurance Name Policy Number Policy Jha Covered Member ID Jha Member ID Guarantor Name 04/22/2024 1 [employer] (MEDICARE REPLACEMENT HMO) [id number] Idania Bestimm [id number] Idania Bestimm 05/01/2024 1 [employer] (MEDICARE REPLACEMENT HMO) [id number] Idania Erik Brimm [id number] Idania Bestimm 05/22/2024 1 [employer] (MEDICARE REPLACEMENT HMO) [id number] Idania Bestimm [id number] Idania Valencia Brimm 07/01/2024 1 [employer] (MEDICARE REPLACEMENT HMO) [id number] Idania Bestimm [id number] Idania Bestimm 08/20/2024 1 [employer] (MEDICARE REPLACEMENT HMO) [id number] Idania Valencia Brimm [id number] Idania Bestimm Notes Date Note Type Note Provider Name and Address Organization Details Recorded Time 05/22/2024 text/html Patient is a 79 year old female that presents to the office ambulatory with chaim, for initially for Medicare Wellness however after chart review patient had Medicare Wellness completed by Farhana Gr (Family Medicine) at [facility] in February.Discussed with patient that she could [...] Zyrtec which helps with symptoms. Eduardo Bradford, BIOMEDICAL REPAIR TECHNICIAN-C [address] [place] [address] [address], [place], [address], [facility] [employer] 05/22/2024 12:39:44 08/20/2024 text/html Patient is a [...] of breath at this time. Eduardo Bradford, BIOMEDICAL REPAIR TECHNICIAN-C [address] [facility] [facility] [address], [place], [address], [facility] 08/20/2024 10:06:35 OBGyn Episode No OBEpisode recorded.
--- OUTSIDE RECORDS SUMMARY | 2024-08-28 05:49 | XMS_ITS | Continuity of Care Document ---
Author Organization [facility] Address [address] [place] [address] Phone Care Team Providers Care Log Haul Operator Name Role Phone Jamar Santana Unavailable Unavailable [...] Providers Copied on Encounter Office/outpat ient Visit, [facility] [place], [address], [place], [place], [address], [place] tel:[phone] SEC [facility] No Information 0 Max Roldan. [address] , [address], [place], [address], [place]. tel:[phone] Office/outpat ient Visit, [facility] [place], [address], [place], [place], [address], [place] tel:[phone] SEC [facility] No Information Apr-2 1-200 9 Krishnasamy Branden. [address] [facility] [address], [address], [place]. tel:[phone] Office/outpat ient Visit, [facility], [address], [place], [place], [address], [place] tel:[phone] [facility] No Information Oct-2 1-200 8 Krishnasamy Branden. [address] [facility] [address], [place], [place], [facility], [place]. tel:[phone] [facility]pat [facility], [facility], [address], [place], [place], [address], [place] tel:[phone] [facility] [place] No Information Sep-1 6-200 8 Krishnasamy Branden. [address] [facility] [address], [place], [place], [facility], [place]. tel:[phone] [facility], [address], [place], [place], [address], [place] tel:[phone] [facility] No Information Sep-0 9-200 8 Krishnasamy Branden. [facility] [address], [place], [place], [facility], [place]. tel:[phone] Office/outpat ient Visit, [facility], [address], [place], [place], [address], [place] tel:[phone] [facility] [place] No Information Sánchez-2 1-200 8 Krishnasamy Branden. [address] [facility] [address], [place], [address], [place]. tel:[phone] [facility], [address], [place], [place], [address], [place] tel:[phone] [facility] No Information Oct-1 4-200 8 Krishnasamy Branden. [address] [facility] [place] [address], [place], [address], [place]. tel:[phone] Office/outpat ient Visit, [facility], [address], [place], [place], [address], [place] tel:[phone] [facility] No Information May-0 2-200 8 Doisy Edward. [address] [facility] [place] , [address], [place], [place], [facility], [place]. tel:[phone] Office/outpat ient Visit, [facility], [address], [place], [place], [address], [place] tel:[phone] [facility] [place] No Information Apr-2 5-200 8 Doisy Edward. [facility] , [address], [place], [place], [facility], [place]. tel:[phone] [facility], [address], [place], [place], [address], [place] tel:[phone] [facility] [place] No Information Apr-2 2-200 8 Krishnasamy Branden. [facility] [address], [place], [place], [facility], [place]. tel:[phone] Office/outpat ient Visit, [facility], [address], [place], [place], [address], [place] tel:[phone] [facility] [place] No Information Nov-2 7-200 7 Rafat Bowles. [address], [place], [place], [address], [place]. tel:[phone] [facility], [address], [place], [place], [address], [place] tel:[phone] [facility] No Information 2 0-200 7 Rafat Bowles. [address], [facility] [place], [address], . tel:[phone] Office/outpat ient Visit, [facility], [address], [place], [place], [address], [place] tel:[phone] SEC [facility] No Information 3 0-200 7 Rafat Bowles. [address], [facility] [address], [place], [place], [address], [place]. tel:[phone] Family History Family Member Type Diagnosis Age At Onset No Information Payers Payer name Insurance type Covered libertarian ID Authoriza tion(s) No Information Social History [...]
--- NOTE | 2024-08-28 06:01 | ECG_ITS ---
Test Date: 2024-08-28 06:03:32 Measurements Intervals [place] Rate: 85 P: 42 LA: 199 QRS: -46 QRSD: 110 T: 71 QT: 353 QTc: 421 Interpretive Statements SINUS RHYTHM WITH OCCASIONAL SUPRAVENTRICULAR PREMATURE COMPLEXES LEFT ANTERIOR FASCICULAR BLOCK [QRS AXIS <= -45, QR IN I, RS IN II] MODERATE VOLTAGE CRITERIA FOR LVH, CONSIDER NORMAL VARIANT [MEETS CRITERIA IN ONE OF: R(aVL), S(V1), R(V5), R(V5/V6)+S(V1)] ABNORMAL ECG No previous ECG available for comparison Electronically Signed On 08-28-2024 07:29:02 CDT by Esteban Carrizales M.D.
--- NOTE | 2024-08-28 06:06 | ED.CHESTPAIN ---
HPI - Chest Pain General Chief Complaint: Chest Pain <Jacque Hoff MD - Last Filed: 08/28/24 06:38> Stated Complaint: palpitations, cp, dizziness <Jacque Hoff MD - Last Filed: 08/28/24 06:38> Time Seen by Provider: 08/28/24 05:53 <Jacque Hoff MD - Last Filed: 08/28/24 06:38> History of Present Illness HPI narrative: Patient states that almost every morning she wakes up with sensation of chest pain in the central chest that seems to go up to her throat. 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 This seems to be worse in the morning. <Jacque Hoff MD - Last Filed: 08/28/24 06:38> Related Data Home Medications: Home Medications ?Medication ?Instructions ?Recorded ?Confirmed ?Last Taken ?Type ascorbic acid (vitamin C) 1,000 mg 1,000 mg PO Q12H 05/06/19 06/30/24 12/11/23 History tablet,extended release cholecalciferol (vitamin D3) 100 4,000 unit PO DAILY 05/06/19 06/30/24 12/11/23 History mcg (4,000 unit) capsule chromium picolinate 400 mcg tablet 400 mcg PO DAILY 05/06/19 06/30/24 12/11/23 History dextrin 3 gram/3.5 gram oral 3 gm PO TID 05/06/19 06/30/24 12/11/23 History powder (Easy Fiber) melatonin 5 mg disintegrating 5 mg PO DAILY 05/06/19 06/30/24 12/11/23 History tablet milk thistle 150 mg capsule 150 mg PO BID 05/06/19 06/30/24 12/11/23 History omeprazole magnesium 20 mg 20 mg PO DAILY 05/06/19 06/30/24 12/11/23 History tablet,delayed release (Prilosec OTC) vit B complex 100 combo no.2 100 1 tablet PO DAILY 05/06/19 06/30/24 12/11/23 History mg tablet,extended release (B-100 Complex ER) zinc acetate 50 mg (zinc) capsule 50 mg PO DAILY 05/06/19 06/30/24 12/11/23 History cetirizine 10 mg tablet (Zyrtec) 5 mg PO DAILY PRN Allergy Symptoms 06/10/19 06/30/24 12/11/23 History aspirin 500 mg tablet 500 mg PO DAILY 07/13/20 06/30/24 12/11/23 History coenzyme Q10 100 mg capsule (Co 100 mg PO DAILY 07/13/20 06/30/24 12/11/23 History Q-10) lactobacillus combination no.9 4 4,000 mmu cells PO DAILY 07/13/20 06/30/24 12/11/23 History billion cell capsule (Adult 50 Plus Probiotic) olive leaf extract 250 mg capsule 500 mg PO DAILY 07/13/20 06/30/24 12/11/[address]an Immunition [facility]-24 10/13/21 06/30/24 12/11/23 History Allergy Formula Hydrolized Collagen 10/13/21 06/30/24 12/11/23 History fluticasone propionate 50 1 - 2 spray intranasal BID PRN 10/18/22 06/30/24 12/12/23 History mcg/actuation nasal Sinus Symptoms spray,suspension (Flonase Allergy Relief) amino acid-hydrolyzed 100 ea PO DAILY 11/16/22 06/30/24 12/11/23 History collagen-whey 15 gram-100 kcal/30 mL oral liquid omega 7-ufw-bgp-fish oil 1,000 mg 1 cap PO DAILY 11/16/22 06/30/24 12/11/23 History (120 mg-180 mg) capsule (Fish Oil) vitamin E 100 unit/0.25 mL oral 100 unit PO DAILY 11/16/22 06/30/24 12/11/23 History drops <Jacque Hoff MD - Last Filed: 08/28/24 06:38> Allergies/Adverse Reactions: Allergies Allergy/AdvReac Type Severity Reaction Status Date / Time levofloxacin Allergy Severe tendon Verified 06/24/24 11:56 rupture doxycycline Allergy Mild Itching Verified 06/24/24 11:23 bee venom protein (honey bee) Allergy Unknown Unknown Verified 06/24/24 11:23 ciprofloxacin Allergy Unknown Rash Verified 06/24/24 11:23 clindamycin Allergy Unknown Rash Verified 06/24/24 11:23 codeine Allergy Unknown Rash Verified 06/24/24 11:23 hydrocodone Allergy Unknown Rash Verified 06/24/24 11:23 metronidazole Allergy Unknown Rash Verified 06/24/24 11:23 Penicillins Allergy Unknown Skin Verified 06/24/24 11:23 irritation sulfamethoxazole (From Allergy Other Verified 06/24/24 11:23 Sulfamethoxazole-Trimethoprim) trimethoprim (From Allergy Other Verified 06/24/24 11:23 Sulfamethoxazole-Trimethoprim) levothyroxine AdvReac Severe palpitation Verified 06/24/24 11:23 s <Jacque Hoff MD - Last Filed: 08/28/24 06:38> Review of Systems Review of Systems: All systems reviewed & are unremarkable except as noted in HPI and below <Jacque Hoff MD - Last Filed: 08/28/24 06:38> [facility] Past Medical History Medical History: Medical History Vitamin D deficiency Superficial thrombophlebitis of right leg Pure hypercholesterolemia Post-menopausal Palpitations Multinodular goiter Menopausal symptoms LAD (lymphadenopathy), cervical Hypothyroidism determined by thyroid function test Hiatal hernia Essential (primary) hypertension Dysphagia Diverticulitis large intestine Colitis CML (chronic myeloid leukemia) Chronic pansinusitis Cellulitis of right lower leg Body mass index (BMI) 35 or more (10/12/18) Pneumonitis IBS (irritable bowel syndrome) Blood clotting disorder Arthritis Allergies GERD (gastroesophageal reflux disease) History of stress test Diverticulosis (~2016) CML in remission Hyperlipidemia Prediabetes Hypertension Hypothyroidism <Jacque Hoff MD - Last Filed: 08/28/24 06:38> Surgical History Surgical History: Surgical History Status post open reduction with internal fixation (ORIF) of fracture of ankle S/P CHACE (total abdominal hysterectomy) <Jacque Hoff MD - Last Filed: 08/28/24 06:38> Family History Family History: Family History Mother Diabetes mellitus Family history of cardiovascular disease Family history of congestive heart failure Family history of diabetes mellitus in first degree relative Family history of heart disease in male family member before age 55 Cerebrovascular accident Father Family history of Parkinson's disease Grandparent Family history of congestive heart failure Family history of heart disease in male family member before age 55 Diabetes mellitus Depression Sibling Family history of diabetes mellitus in first degree relative Diabetes mellitus <Jacque Hoff MD - Last Filed: 08/28/24 06:38> Social History Social History: Social History Smoking status: Never smoker Second hand tobacco smoke exposure: No Alcohol intake: never Substance use: never Substance use type: does not use Lack of Transportation: No Lack of Food: Never True Current Housing: I Have Housing Concerned About Future Housing: No Difficulty Paying Gas/Electric Bills: No Difficulty Paying for Meds: No Currently Unemployed: No Education: High School Diploma/GED Difficulty w/ Childcare or Family Care: No Living arrangements: with family Occupation/Education: retired Gender identity (if verbalized by the patient): Female Spiritual care concerns: No Agree to blood products: No <Jacque Hoff MD - Last Filed: 08/28/24 06:38> Exam Narrative: EXAMINATION OF ORGAN SYSTEMS/BODY AREAS: Constitutional: Vital signs per nursing GENERAL:[No acute distress, non-toxic appearing.] HEAD: Normal with no signs of head trauma. EYES: EOMI, conjunctiva normal ENT: Hearing grossly intact LUNGS: Nonlabored breathing. Clear to auscultation bilaterally HEART: [Regular rate and rhythm] ABD: [Soft], [nontender to palpation] EXT: Normal range of motion SKIN: [No rashes or lesions.] NEURO: [Alert and oriented x 3. 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 pending repeat troponin discharge home. Patient presents with noncardiac sounding chest pain had unremarkable workup thus far. D-dimer negative per years criteria. Patient was updated on plan if repeat troponin is unremarkable she will be discharged home with PCP follow-up for outpatient risk stratification. Repeat troponin is negative. Repeat EKG nonischemic in nature. Patient given return precautions and discharged at this time. <Skip Shukla MD - Last Filed: 08/28/24 09:26> Vital Signs Vital signs: Vital Signs Temperature 36.3 C L 08/28/24 05:53 Pulse Rate 96 08/28/24 05:53 Respiratory Rate 15 08/28/24 05:53 Blood Pressure 133/98 H 08/28/24 05:53 Pulse Oximetry 99 08/28/24 05:53 Oxygen Delivery Room Air 08/28/24 05:53 Temperature 36.3 C L 08/28/24 05:53 Pulse Rate 78 08/28/24 07:57 Respiratory Rate 14 08/28/24 07:46 Blood Pressure 137/56 L 08/28/24 07:46 Pulse Oximetry 97 08/28/24 07:46 Oxygen Delivery Room Air 08/28/24 06:02 <Jacque Hoff MD - Last Filed: 08/28/24 06:38> Vital Signs Temperature 36.3 C L 08/28/24 05:53 Pulse Rate 96 08/28/24 05:53 Respiratory Rate 15 08/28/24 05:53 Blood Pressure 133/98 H 08/28/24 05:53 Pulse Oximetry 99 08/28/24 05:53 Oxygen Delivery Room Air 08/28/24 05:53 Temperature 36.3 C L 08/28/24 05:53 Pulse Rate 78 08/28/24 07:57 Respiratory Rate 14 08/28/24 07:46 Blood Pressure 137/56 L 08/28/24 07:46 Pulse Oximetry 97 08/28/24 07:46 Oxygen Delivery Room Air 08/28/24 06:02 <Skip Shukla MD - Last Filed: 08/28/24 09:26> MDM - Chest Pain MDM Narrative Medical decision making narrative: ED COURSE AND MEDICAL DECISION MAKIN-year-old female presenting with chest pain. EKG done in triage negative for acute ischemic changes. Cardiac workup is initiated. I will also try Protonix. EKG: Performed in triage and interpreted by me. Normal sinus rhythm. Rate 85. Normal axis. PA normal. QRS duration normal. QTc normal. No pathologic Q waves. No ST segment elevation or depression to suggest acute ischemia. No RV strain pattern. Patient will be signed out to oncoming ER physician. <Jacque Hoff MD - Last Filed: 08/28/24 06:38> Lab Data Result diagrams: 08/28/24 06:07 08/28/24 06:07 <Jacque Hoff MD - Last Filed: 08/28/24 06:38> Labs: Lab Results 08/28/24 08/28/24 08/28/24 Range/Units 06:06 06:07 08:45 WBC 7.8 (4.5-10.0) K/mm3 RBC 4.86 (4.2-5.4) M/mm3 Hgb 14.4 (12.0-15.0) g/dL Hct 45.9 (37.0-47.0) % MCV 94.4 (80-100) fl MCH 29.6 (26-34) pg MCHC 31.4 L (32-36) g/dl RDW 12.7 (11.5-14.5) % Plt Count 288 (150-375) k/mm3 MPV 10.5 H (7.4-10.4) fl Immature Gran % (Auto) 0.3 (0-0.5) % Neut % (Auto) 67.8 (45.5-73.1) % Lymph % (Auto) 17.8 L (18.3-44.2) % [place] % (Auto) 8.6 H (2.6-8.5) % Eos % (Auto) 4.7 H (0-4.4) % Baso % (Auto) 0.8 (0.2-1.2) % Lymph # (Auto) 1.39 (0.9-3.2) K/mm3 [place] # (Auto) 0.7 H (0.1-0.6) K/mm3 Eos # (Auto) 0.4 H (0-0.3) K/mm3 Baso # (Auto) 0.1 (0.0-0.1) K/mm3 Abs Immat Gran (auto) 0.02 (0.00-0.031) K/mm3 Absolute Neuts (auto) 5.3 (1.3-6.7) K/mm3 Absolute Nucleated RBC 0.000 (0.0-0.012) K/mm3 Nucleated RBC % 0.0 (0.0-0.2) % PT 13.0 (11.1-14.7) Seconds INR 0.9 APTT 27.7 (22.3-36.8) Seconds D-Dimer 0.53 H (<0.48) ug/mL Sodium 136 L (137-145) mmol/L Potassium 4.0 (3.4-5.0) mmol/L Chloride 102 (98-107) mmol/L Carbon Dioxide 27 (22-30) mmol/L Anion Gap 7 (4-12) mmol/L BUN 14 (7-17) mg/dL Creatinine 1.02 H (0.7-1.0) mg/dL Estim Creat Clear Calc 47 ml/min Estimated GFR 52 L (59 - ) Glucose 109 (65-110) mg/dL Calcium 9.2 (8.4-10.2) mg/dL Total Bilirubin 0.5 (0.2-1.3) mg/dL AST 22 (14-36) U/L ALT 20 (6-35) U/L Alkaline Phosphatase 93 (38-126) U/L Troponin I < 0.012 < 0.012 (0.000-0.034) ng/mL NT-Pro-B Natriuret Pep 153 H (19.9-100) pg/mL Total Protein 7.0 (6.3-8.2) g/dL Albumin 4.0 (3.5-5.1) g/dL Lipase 30 (23-300) U/L <Jacque Hoff MD - Last Filed: 08/28/24 06:38> Lab Results 08/28/24 08/28/24 08/28/24 Range/Units 06:06 06:07 08:45 WBC 7.8 (4.5-10.0) K/mm3 RBC 4.86 (4.2-5.4) M/mm3 Hgb 14.4 (12.0-15.0) g/dL Hct 45.9 (37.0-47.0) % MCV 94.4 (80-100) fl MCH 29.6 (26-34) pg MCHC 31.4 L (32-36) g/dl RDW 12.7 (11.5-14.5) % Plt Count 288 (150-375) k/mm3 MPV 10.5 H (7.4-10.4) fl Immature Gran % (Auto) 0.3 (0-0.5) % Neut % (Auto) 67.8 (45.5-73.1) % Lymph % (Auto) 17.8 L (18.3-44.2) % [place] % (Auto) 8.6 H (2.6-8.5) % Eos % (Auto) 4.7 H (0-4.4) % Baso % (Auto) 0.8 (0.2-1.2) % Lymph # (Auto) 1.39 (0.9-3.2) K/mm3 [place] # (Auto) 0.7 H (0.1-0.6) K/mm3 Eos # (Auto) 0.4 H (0-0.3) K/mm3 Baso # (Auto) 0.1 (0.0-0.1) K/mm3 Abs Immat Gran (auto) 0.02 (0.00-0.031) K/mm3 Absolute Neuts (auto) 5.3 (1.3-6.7) K/mm3 Absolute Nucleated RBC 0.000 (0.0-0.012) K/mm3 Nucleated RBC % 0.0 (0.0-0.2) % PT 13.0 (11.1-14.7) Seconds INR 0.9 APTT 27.7 (22.3-36.8) Seconds D-Dimer 0.53 H (<0.48) ug/mL Sodium 136 L (137-145) mmol/L Potassium 4.0 (3.4-5.0) mmol/L Chloride 102 (98-107) mmol/L Carbon Dioxide 27 (22-30) mmol/L Anion Gap 7 (4-12) mmol/L BUN 14 (7-17) mg/dL Creatinine 1.02 H (0.7-1.0) mg/dL Estim Creat Clear Calc 47 ml/min Estimated GFR 52 L (59 - ) Glucose 109 (65-110) mg/dL Calcium 9.2 (8.4-10.2) mg/dL Total Bilirubin 0.5 (0.2-1.3) mg/dL AST 22 (14-36) U/L ALT 20 (6-35) U/L Alkaline Phosphatase 93 (38-126) U/L Troponin I < 0.012 < 0.012 (0.000-0.034) ng/mL NT-Pro-B Natriuret Pep 153 H (19.9-100) pg/mL Total Protein 7.0 (6.3-8.2) g/dL Albumin 4.0 (3.5-5.1) g/dL Lipase 30 (23-300) U/L <Skip Shukla MD - Last Filed: 08/28/24 09:26> Discharge Plan Discharge Clinical Impression: Atypical chest pain <Jacque Hoff MD - Last Filed: 08/28/24 06:38> Patient Disposition: Home <Jacque Hoff MD - Last Filed: 08/28/24 06:38> Condition: Stable <Jacque Hoff MD - Last Filed: 08/28/24 06:38> Additional Instructions: Your laboratory studies are reassuring, your cardiac enzymes are undetectable both times. No signs of heart strain on your EKG. Follow-up with regular doctor. Return with any new or worsening/emergent concerns at any time. <Jacque Hoff MD - Last Filed: 08/28/24 06:38> Patient Language: Yakut <Jacque Hoff MD - Last Filed: 08/28/24 06:38> Prescriptions: No Action Adult 50 Plus Probiotic 4 billion cell capsule 4,000 mmu cells PO DAILY Rx Instructions: administer with a meal aspirin 500 mg tablet 500 mg PO DAILY olive leaf extract 250 mg capsule 500 mg PO DAILY coenzyme Q10 [Co Q-10] 100 mg capsule 100 mg PO DAILY ramipril 10 mg capsule 10 mg PO DAILY Qty: 90 3RF (DME) Anna Glucan Immunition NSC-24 Allergy Formula See Rx Instructions .Route .MEDSUPPLY Rx Instructions: Take one capsule daily (DME) Hydrolized Collagen 0 .Route .MEDSUPPLY vitamin E 100 unit/0.25 mL drops 100 unit PO DAILY omega 2-cje-rbv-fish oil [Fish Oil] 1,000 mg (120 mg-180 mg) capsule 1 cap PO DAILY amino ac-hydroly collagen-whey 15 gram-100 kcal/30 mL liquid 100 ea PO DAILY cetirizine [Zyrtec] 10 mg tablet 5 mg PO DAILY PRN (Reason: Allergy Symptoms) Rx Instructions: PATIENT TAKES THIS ONE IN THE WINTER TIME. Prilosec OTC 20 mg tablet,delayed release (DR/EC) 20 mg PO DAILY ascorbic acid (vitamin C) 1,000 mg tablet extended release 1,000 mg PO Q12H zinc acetate 50 mg (zinc) capsule 50 mg PO DAILY cholecalciferol (vitamin D3) 4,000 unit capsule 4,000 unit PO DAILY chromium picolinate 400 mcg tablet 400 mcg PO DAILY B-100 Complex 100 mg tablet extended release 1 tablet PO DAILY milk thistle 150 mg capsule 150 mg PO BID Easy Fiber 3 gram/3.5 gram powder 3 gm PO TID melatonin 5 mg tablet,disintegrating 5 mg PO DAILY fluticasone propionate [Flonase Allergy Relief] 50 mcg/actuation spray,suspension 1 - 2 spray intranasal BID PRN (Reason: Sinus Symptoms) Rx Instructions: administer into each nostril acetaminophen 500 mg capsule 1,000 mg PO Q6H PRN (Reason: pain) Qty: 20 0RF albuterol sulfate 90 mcg/actuation aerosol powdr breath activated 2 inh inhalation Q6H PRN (Reason: shortness of breath) Qty: 1 0RF estradiol 0.05 mg/24 hr patch semiweekly 1 patch transdermal 2XW Qty: 8 2RF azithromycin 250 mg tablet See Rx Instructions PO .COMPLEX Qty: 6 0RF Rx Instructions: take 500 mg today (day 1), then 250 mg for 4 days (days 2-5) PO <Jacque Hoff MD - Last Filed: 08/28/24 06:38> Follow-up/Referrals: [place],Ayse Hope ROLLER 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
[2024-08-28] MEDS: PANTOPRAZOLE SODIUM IV 40 MG VIAL IV PUSH (06:11)
[2024-08-28 06:14] LABS: Basophils Absolute Auto 0.1 K/mm3 (0.0-0.1); Basophils Percent Auto 0.8 % (0.2-1.2); Eosinophils Absolute Auto 0.4 K/mm3 (0-0.3); Eosinophils Percent Auto 4.7 % (0-4.4); Hematocrit 45.9 % (37.0-47.0); Hemoglobin 14.4 g/dL (12.0-15.0); Immature Granulocyte Absolute 0.02 K/mm3 (0.00-0.031); Immature Granulocyte Percent A 0.3 % (0-0.5); Lymphocytes Absolute Auto 1.39 K/mm3 (0.9-3.2); Lymphocytes Percent Auto 17.8 % (18.3-44.2); Mean Corpuscular HGB Conc 31.4 g/dl (32-36); Mean Corpuscular Hemoglobin 29.6 pg (26-34); Mean Corpuscular Volume 94.4 fl (80-100); Mean Platelet Volume 10.5 fl (7.4-10.4); Monocytes Absolute Auto 0.7 K/mm3 (0.1-0.6); Monocytes Percent Auto 8.6 % (2.6-8.5); Neutrophils Absolute Auto 5.3 K/mm3 (1.3-6.7); Neutrophils Percent Auto 67.8 % (45.5-73.1); Platelet Count Result 288 k/mm3 (150-375); Red Blood Count 4.86 M/mm3 (4.2-5.4); Red Cell Distribution Width 12.7 % (11.5-14.5); White Blood Count 7.8 K/mm3 (4.5-10.0)
[2024-08-28 06:27] LABS: Alanine Aminotransferase 20 U/L (6-35); Alkaline Phosphatase 93 U/L (38-126); Anion Gap 7 mmol/L (4-12); Aspartate Amino Transferase 22 U/L (14-36); Bilirubin,Total 0.5 mg/dL (0.2-1.3); Blood Urea Nitrogen 14 mg/dL (7-17); Calcium 9.2 mg/dL (8.4-10.2); Carbon Dioxide 27 mmol/L (22-30); Chloride 102 mmol/L (98-107); Estimated CRCL calculation 47 ml/min; Estimated Glomerular Filt Rate 52; Glucose 109 mg/dL (65-110); Lipase 30 U/L (23-300); Sodium 136 mmol/L (137-145)
[2024-08-28 06:30] LABS: INR 0.9
[2024-08-28 06:31] LABS: Partial Thromboplastin Time 27.7 Seconds (22.3-36.8)
[2024-08-28 06:38] LABS: NT Pro B Type Natriuretic Pept 153 pg/mL (19.9-100); Troponin I < 0.012 ng/mL (0.000-0.034)
[2024-08-28 06:49] LABS: D Dimer 0.53 ug/mL (<0.48)
--- OUTSIDE RECORDS SUMMARY | 2024-08-28 07:27 | XMS_ITS | CONTINUITY OF CARE DOCUMENT ---
Author Name triston goldstein Address Unknown Organization [facility] Address [address] [place] [address] Phone [phone] Care Team Providers Care Gypsum Block Setter Name Role Phone Francnie Wilks MD Unavailable [phone] Francine Wilks MD Unavailable [phone] INSURANCE PROVIDERS Payer name Policy type / Coverage type Ririe red alliance party ID AETNA MEDICARE GOLD ADVANTAGE HMO Medicare [id number]
--- OUTSIDE RECORDS SUMMARY | 2024-08-28 07:27 | XMS_ITS | Continuity of Care Document ---
Author Organization [facility] Address [address] [place] [address] Phone Care Team Providers Care Professor Of Art History Name Role Phone Jamar Santana Unavailable Unavailable [...] Providers Copied on Encounter Office/outpat ient Visit, [facility], [address], [place], [place], [id number], [place] tel:[phone] [facility] No Information 0 Max Roldan. [address] , [address], [place], [address], [place]. tel:[phone] Office/outpat ient Visit, [facility], [address], [place], [place], [address], [place] tel:[phone] SEC [facility] Corporate Center No Information Apr-2 1-200 9 Krishnasamy Branden. [address] [facility] [address], [place], [address], [place]. tel:[phone] Office/outpat ient Visit, [facility], [address], [place], [place], [address], [place] tel:[phone] [facility] No Information Oct-2 1-200 8 Krishnasamy Branden. [address] [facility] [address], [place], [place], [facility], [place]. tel:[phone] [facility]pat [facility], [address], [place], [place], [address], [place] tel:[phone] [facility] [place] No Information Sep-1 6-200 8 Krishnasamy Branden. [address] [facility] [address], [place], [place], [facility], [place]. tel:[phone] [facility], [address], [place], [place], [id number], [place] tel:[phone] [facility] No Information Sep-0 9-200 8 Krishnasamy Branden. [facility] [address], [place], [place], [facility], [place]. tel:[phone] [facility], [address], [place], [place], [address], [place] tel:[phone] [facility] [place] No Information Sánchez-2 1-200 8 Krishnasamy Branden. [address] [facility] [address], [place], [address], [place]. tel:[phone] [facility], [address], [place], [place], [address], [place] tel:[phone] [facility] No Information Oct-1 4-200 8 Krishnasamy Branden. [address] [facility] [place] [address], [place], [address], [place]. tel:[phone] Office/outpat ient Visit, [facility], [address], [place], [place], [id number], [place] tel:[phone] [facility] No Information May-0 2-200 8 Doisy Edward. [address] [facility] [place] , [address], [place], [place], [facility], [place]. tel:[phone] Office/outpat ient Visit, [facility], [address], [place], [place], [address], [place] tel:[phone] [facility] [place] No Information Apr-2 5-200 8 Doisy Edward. [facility] , [address], [place], [place], [facility], [place]. tel:[phone] [facility], [address], [place], [place], [address], [place] tel:[phone] [facility] [place] No Information Apr-2 2-200 8 Krishnasamy Branden. [facility] [address], [place], [place], [facility], [place]. tel:[phone] Office/outpat ient Visit, [facility], [address], [place], [place], [id number], [place] tel:[phone] [facility] [place] No Information Nov-2 7-200 7 Rafat Bowles. [address], [place], [place], [address], [place]. tel:[phone] [facility], [address], [place], [place], [address], [place] tel:[phone] [facility] No Information 2 0-200 7 Rafat Bowles. [address], [facility] [place], [address], . tel:[phone] Office/outpat ient Visit, [facility], [address], [place], [place], [address], [place] tel:[phone] [facility] No Information 3 0-200 7 Rafat Bowles. [address], [facility] [address], [place], [place], [address], [place]. tel:[phone] Family History Family Member Type Diagnosis Age At Onset No Information Payers Payer name Insurance type Covered constitution party ID Authoriza tion(s) No Information Social History [...]
--- OUTSIDE RECORDS SUMMARY | 2024-08-28 07:27 | XMS_ITS | Clinical Summary ---
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 Gender Identity Not on file Sexual Orientation Not on file Plan of Treatment Upcoming Encounters Date Type Department Care Team (Late st Contact Info) Description 09/04/2024 3:00 PM CDT Office Visit [facility] [address] [address] Ame eDcker MD [address] [place] [address] Health Maintenance Due Date Last Done Comments DTAP/TDAP/TD VACCINES (1 - Tdap) 1964 PNEUMOCOCCAL VACCINE 50+ YEARS (1 of 1 - PCV) 04/19/19 95 ZOSTER VACCINE (1 of 2) 1995 OSTEOPOROSIS SCREENING 2010 RSV VACCINE (60+ or ) (1 - 1-dose 75+ series) 2020 INFLUENZA VACCINE (#1) 2023 Insurance AETNA HMO MCR
--- NOTE | 2024-08-28 08:42 | ECG_ITS ---
Test Date: 2024-08-28 08:45:36 Measurements Intervals [place] Rate: 87 P: 30 GA: 201 QRS: -47 QRSD: 108 T: 74 QT: 375 QTc: 451 Interpretive Statements SINUS RHYTHM WITH FREQUENT SUPRAVENTRICULAR PREMATURE COMPLEXES LEFT ANTERIOR FASCICULAR BLOCK [QRS AXIS <= -45, QR IN I, RS IN II] MODERATE VOLTAGE CRITERIA FOR LVH, CONSIDER NORMAL VARIANT [MEETS CRITERIA IN ONE OF: R(aVL), S(V1), R(V5), R(V5/V6)+S(V1)] POSSIBLE ANTERIOR MYOCARDIAL INFARCTION , OF INDETERMINATE AGE [30 ms Q WAVE IN V3/V4, OR R < 0.2 mV IN V4] Compared to ECG 08/28/2024 06:03:32 NO SIGNIFICANT CHANGES Electronically Signed On 08-28-2024 14:03:45 CDT by Edenilson Mclaughlin M.D.
[2024-08-28 09:14] LABS: Troponin I < 0.012 ng/mL (0.000-0.034)
== END 2024-08-28 10:12 | disposition home or self-care (01) ==
PROVIDERS: Emergency Provider Emergency Medicine; PCP Nurse Practitioner Family
DX: R07.89 Other chest pain (principal); I10 Essential (primary) hypertension; E55.9 Vitamin D deficiency, unspecified; E78.00 Pure hypercholesterolemia, unspecified; E03.9 Hypothyroidism, unspecified; C92.11 Chronic myeloid leukemia, BCR/ABL-positive, in remission; K58.9 Irritable bowel syndrome, unspecified; K21.9 Gastro-esophageal reflux disease without esophagitis; K44.9 Diaphragmatic hernia without obstruction or gangrene; M19.90 Unspecified osteoarthritis, unspecified site; R73.03 Prediabetes; Z90.710 Acquired absence of both cervix and uterus; Z79.899 Other long term (current) drug therapy; I49.1 Atrial premature depolarization; I44.4 Left anterior fascicular block; R94.31 Abnormal electrocardiogram [ECG] [EKG]
CPT/HCPCS: 36415; 71045; 80053; 83690; 83880; 84484; 85025; 85380; 85610; 85730; 93005; 96374; 99284; J2470

== ENCOUNTER 2024-09-10 10:59 | Outpatient (CLI) | payer MEDICARE, SELFPAY ==
--- NOTE | ~2024-09-10 | MM_ITS ---
EXAMINATION: MM diagnostic brian BI w shawna HISTORY: Follow-up breast calcifications TECHNIQUE: Additional 3-D tomosynthesis images of the breasts were performed and synthetic 2-D images were generated. CAD analysis was submitted and interpreted. COMPARISON: Comparison to multiple prior studies sequentially, with oldest reviewed study dated 09/01. BREAST PARENCHYMAL COMPOSITION: Not dense: There are scattered areas of fibroglandular density. FINDINGS: No new masses or architectural distortion in either breast. Clustered indeterminate calcifi cations in both breasts are stable dating back to 03/29/2023 allowing for differences of technique. IMPRESSION: 1. Stable bilateral breast calcifications. No new masses or architectural distortion in either breast . No evidence for malignancy. 2. Routine yearly screening mammogram and regular clinical breast examination are recommended. BI-RADS Category 2: Benign finding(s). Reviewed, dictated and finalized at location B. IMPRESSION: 1. Stable bilateral breast calcifications. No new masses or architectural disto rtion in either breast. No evidence for malignancy. 2. Routine yearly screening mammogram and regular clinical breast examination a re recommended. BI-RADS Category 2: Benign finding(s).
--- OUTSIDE RECORDS SUMMARY | 2024-09-10 11:11 | XMS_ITS | Data Portability ---
Author Organization [place] [facility], Main Office Address [address] [place] [address] Care Team Providers Care Student Affairs Dean Name Role Phone EDUARDO BRADFORD Primary Care [...] ambulate and no longer needs assistance with hya-sa-infac activities. She takes a daily aspirin for [...] Appointments New Patient 15 2024 01:00P Erik Nayak, XAVIER Not available Not available Not available Lab culture, aerobic, throat 2024 025 [facility] (Lab), [address] [place], [address], 08/22/2024 09:24:10 rapid strep group A, throat 2024 025 [facility] [place], [address] [place] [address] Drive [address], [place], [address], 08/20/2024 10:14:17 ESR (erythroc yte sedimenta tion rate), blood 2023 024 [facility] (Lab), [address] [place], [address], 04/22/2024 14:09:08 C-reactiv e protein, quantitat handy, serum or plasma 2023 024 [facility] (Lab), [address] [place], [address], 04/22/2024 14:00:21 Referral podiatris t referral - Please call patient to schedule an appointme nt. Thank you. 2024 025 KODY Nayak DPM, [address], [address], [place], [address], 08/20/2024 15:43:53 physical therapist referral - Please contact pt to schedule apt for L knee. thanks 2024 025 [facility], [address], [place], [address], 05/06/2024 16:53:10 Procedures None recorded. Surgeries None recorded. Imaging XR, chest, 2 view 2024 025 [facility], [address], [place], [address], 08/24/2024 14:01:48 MAMMO, diagnosti c, digital, unilatera l - Please call patient to schedule. 2024 025 [facility], [address], [address], [place], [address], 08/20/2024 15:18:01 XR, knee 2023 024 [email or web address] [facility], [facility], [place], [address], 04/23/2024 14:44:16 Medication Orders Mobic 15 mg tablet 2024 025 [id number], [address] [place], [place], [id number], 08/20/2024 09:16:19 Patient TargetsNo targets recorded. Patient InstructionsNo instructions recorded. Reason for Referral Physical Therapist Referral for Pain of left knee joint L knee Please contact pt to schedule apt for L knee. thanks Referring Physician: Ellis Cai, Orthopedic Surgery, Encounter Date: 05/01/2024 Coffee Sampler Referral for Unab le to cut own toenails Please call patient to schedule an appointment. Thank you. Referring Physician: Eduardo Bradford, Family Medicine, Encounter Date: 08/20/2024 Results Created Date Observation Date Name Description Value Unit Range Abnormal Flag Note LastModifiedBy Organization Detail LastModifiedTime 08/21/19 25 08/20/2024 rapid strep group A, throa t STREP A negati ve Not Available [facility] [address], [place], [address], 08/20/2024 09:41:20 04/22/20 24 XR, knee No observ ation record ed. [email or web address] [facility] [address] [facility], [place], [address], 04/23/2024 14:44:14 08/25/19 25 08/24/2024 XR, chest , 2 view No observ ation record ed. [address], [place], [address], 08/26/2024 10:16:46 08/29/19 25 08/28/2024 XR, chest , 2 view No observ ation record ed. [email or web address] [place] [id number] [facility] [address], [place], [address], 08/28/2024 10:10:49 Result Notes None recorded. Problems Name Problem SNOMED Code Status Onset Date Resolution Date Notes Provider Name and Address Organization Details Recorded Time Diverticu litis 767854247 Active 2020 Not Available [facility] 3 22:43:15 Osteopeni a 972706471 Active 2020 DEXA 03/14 Not Available [facility] 3 22:43:15 Sinusitis 14562879 Active 2020 Not Available [facility] 3 22:43:15 Hypertens handy disorder 73454753 Active 2020 Not Available [facility] 3 22:43:15 Hypothyro idism 40972802 Active 2020 Not Available [facility] 3 22:43:15 Chronic myeloid leukemia in remission 96538002 Active 2020 Not Available [facility] 3 22:43:15 Chronic myeloid leukemia 24431357 Completed 202001/20/2021 Not Available [facility] 3 22:43:15 Aspiratio n pneumonia 337550763 Active 2022 Gladis Alston MD [address] [place] [address], [facility] [address], [place], [address] , [facility] [employer] [facility] 3 17:53:07 Allergic rhinitis 62444631 Active 2022 Gladis Alston MD [address], [address], [address] , [facility] [employer] [facility] 3 15:10:53 Cough 05294768 Active 2022 Gladis Alston MD [address] [place], [address], [address] , [facility] [employer] [facility] [employer] [facility] 3 17:43:49 Acute sinusitis 79626364 Active 2022 Gladis Alston MD [address] [place], [address], [address] , [facility] [employer] [facility] 3 16:57:28 Mammograp hy abnormal 585533908 Active 2022 Gladis Alston MD [address] [place], [address], [address] , [facility] [employer] [facility] 3 14:37:52 Essential hypertens ion 61195913 Active 2022 Gladis Alston MD [address] [place], [address], [address] , [facility] [employer] [facility] 3 14:40:01 Hyperlipi demia 20537600 Active 2022 Gladis Alston MD [address], [address], [address] , [facility] [employer] [facility] 3 14:40:11 Vitamin D deficienc y 81918554 Active 2022 Gladis Alston MD [address], [address], [address] , [facility] [employer] [facility] 3 14:40:21 Cobalamin deficienc y 041588490 Active 2022 Gladis Alston MD [address], [address], [address] , [facility] 3 14:40:38 Pain in throat 438313393 Active 2022 Gladis Alston MD [address], [place] [address], [place], [address] , [facility] 3 14:44:30 Pain of left ankle joint 30940004924 899787 Active 2023 Radha Rosenberg ATC L null, [place] [facility] 4 10:51:15 Closed fracture of shaft of tibia 50657799 Active 2023 Ellis Cai MD [address] [facility], [place] [address], [place], [address] , [facility] 4 12:23:05 Closed fracture of shaft of tibia 11401939 Active 2023 ROSE Valentine, [facility] 4 16:14:55 Fracture of ankle 93645902 Active 2023 Gladis Alston MD [address] [facility], [place] [address], [place], [address] , [facility] 4 14:56:11 Dysphagia 11505738 Active 2023 Gladis Alston MD [address], [place] [address], [place], [address] , [facility] 4 16:08:55 Seasonal allergy 698714528 Active 2023 DARCY Calderon [address] [facility], [place] [address], [place], [address] , [facility] 4 14:03:26 Respirato ry tract congestio n and cough 302986420 Active 2023 DARCY Soto [address], [place] [address], [place], [address] , [facility] 4 11:12:53 Pain of left knee joint 63930072823 4107 Active 2023 Radha Rosenberg ATC L null, [facility] 4 10:27:48 Mechanica l complicat ion of implant 356872833 Active 2023 Radha Rosenberg ATC L null, [facility] 4 10:38:03 Pain of multiple joints 31952373 Active 2024 Tayla Russell RMShayna null, [facility] 5 15:37:55 Bronchiti s 42068613 Active 2024 ROBERT Vergara [address], [address], [place], [address] , [facility] 5 10:26:36 Bilateral osteoarth ritis of knees 25032603331 9107 Active 2024 Nohelia Berry PA-C [address], [address], [place], [address] , [facility] 5 19:52:07 Sore throat 429556911 Active 2024 DARCY Soto [address], [address], [place], [address] , [facility] 5 09:40:55 Wheezing 72016055 Active 2024 DARCY Soto [address], [address], [place], [address] , [facility] 5 09:52:21 Generaliz ed aches and pains 44249897 Active 2024 DARCY Soto [address], [address], [place], [address] , [facility] 5 10:05:36 Problem Notes None recorded. Procedures Surgical History Date Name Laterality Status Provider Name and Address Organization Details Recorded Time 05/22/19 25 Medicare Wellness CPT Code, subsequent completed EDVIN Hill [facility] 05/22/2024 11:59:06 03/06/20 24 Medicare Wellness CPT Code, subsequent completed EDVIN Hill Buck [employer] 03/06/2024 10:53:40 03/01/20 23 Medicare Wellness CPT Code, subsequent completed Stella Long RN [facility] [employer] [facility] 03/01/2023 14:07:38 04/24/19 12 Ankle Surgery completed Radha Rsoenberg ATC L [facility] 05/03/2023 10:49:53 reconstructive orthopedic procedure completed Not Available [facility] 06/22/2022 22:42:41 Hysterectomy completed Not Available [facility] 06/22/2022 22:42:41 Imaging Results Imaging Date Name Status LastModified by Organiz ation Details LastModified Time 04/22/2024 XR, knee completed [email or web address] [facility] [address] [place] [address], [place], [address], 04/23/2024 14:44:14 08/24/2024 XR, chest, 2 view completed [address], [address], 08/26/2024 10:16:46 08/28/2024 XR, chest, 2 view completed [address], [address], 08/28/2024 10:10:49 Procedure Notes None recorded. Medical Equipment None Reported. Allergies Allergen ID Allergen Name Allergen Category Reaction Reaction Severity Criticality Documentation Date Start Date Code Code System Note Provider Name and Address Organization Details Recorded Time 05027 sulfameth oxazole / trimethop rim medicatio n rash Not available Not available 06/22/2022 71874 RxNorm Not Available [facility] 22:44:09 47587 Product containin g penicilli n (product) medicatio n Not available Not available Not available 06/22/2022 42178 8001 SNOMED can baldemar ate cepha lexin Gladis Alston MD [address] [facility], [facility] [address], [place], [address] , [facility] 3 14:30:55 26221 levothyro xine sodium medicatio n Not available Not available Not available 06/22/2022 49861 RxNorm Not Available [facility] 3 22:44:09 84539 codeine medicatio n Not available Not available Not available 06/22/2022 2670 RxNorm Not Available [facility] 3 22:44:10 95995 clindamyc in Not available Not available Not available Not available 06/22/2022 2582 RxNorm Not Available [facility] 3 22:44:10 46328 Cipro medicatio n Not available Not available Not available 06/22/2022 18101 3 RxNorm ruptu red ligam ent Not Available [facility] 3 22:44:10 50672 albuterol medicatio n Not available Not available Not available 06/22/2022 435 RxNorm cause d major fluct uatio ns in blood press ure Not Available [facility] 3 22:44:10 10053 doxycycli ne Not available Not available Not available Not available 03/01/2023 3640 RxNorm Gladis Alston MD [address] [facility], [facility] [address], [place], [address] , [facility] [employer] 3 14:30:35 Medications Name Sig Start Date [...] Updated DateTime 04/22/2024 167.64 cm 32.4 kg/m2 90567.07 g Tayla Russell Shayna [facility] [employer] [facility] 04/22/2024 10:04:37 Date Recorded Body height Body mass index (BMI) Body weight Provider Name and Address Organization Details Last Updated DateTime 05/01/2024 167.64 cm 32.4 kg/m2 43219.07 brayden Tayla Russell Shayna [facility] [employer] [facility] 05/01/2024 15:35:16 Date Recorded Body height Body mass index (BMI) Body weight Body temperature Heart rate Oxygen saturation Oxygen saturation in Arterial blood by Pulse oximetry Systolic blood pressure Diastolic blood pressure Provider Name and Address Organization Details Last Updated DateTime 167.64 cm 32.9 kg/m2 62278.8 4 g 97.2 [degF] 101 /min 94 % 94 % 144 mm[Hg] 70 mm[Hg] Stella Long RN [facility] [employer] [facility] 12:04:49 Date Recorded Body height Body mass index (BMI) Body weight Provider Name and Address Organization Details Last Updated DateTime 07/01/2024 167.64 cm 32.4 kg/m2 16877.07 brayden Bree Terry [facility] [employer] [facility] 07/01/2024 14:09:20 Date Recorded Body height Body mass index (BMI) Body weight Body temperature Heart rate Oxygen saturation Oxygen saturation in Arterial blood by Pulse oximetry Systolic blood pressure Diastolic blood pressure Provider Name and Address Organization Details Last Updated DateTime 167.64 cm 33.1 kg/m2 95731.4 4 g 96.4 [degF] 77 /min 96 % 96 % 140 mm[Hg] 108 mm[Hg] ROSE Duran [facility] [employer] [facility] 09:27:29 Social History Question Answer Notes LastModified by Organization Details LastModified Time Tobacco Smoking Status Never Smoker Brittany chirinos [facility] [employer] [facility] 03/01/2023 14:05:08 Do You Have An Advance Directive? No Packet Of Information [id number] Information not available 06/22/2022 Are You Blind Or Do You Have Difficulty Seeing? No Glasses [email or web address] Information not available 03/01/2023 What Is Your Level Of Caffeine Consumption? Occasional [id number] [id number] Information not available 06/22/2022 How Much Tobacco Do You Chew? None [id number].0301 [id number] Information not available 06/22/2022 In The 14 Days Before Symptom Onset, Have You Had Close Contact With A Laboratory-conf irmed COVID-19 While That Case Was Ill? No Information not available 03/01/2023 In The 14 Days Before Symptom Onset, Have You Had Close Contact With A Person Who Is Under Investigation For COVID-19 While That Person Was Ill? No Information not available 08/20/2024 Are You Deaf Or Do You Have Serious Difficulty Hearing? No [email or web address] Information not available 03/01/2023 What Type Of Diet Are You Following? REGULAR MIGRATION.030 [id number] Information not available 06/22/2022 Which Illicit Or Recreational Drugs Have You Used? None [email or web address] Information not available 03/01/2023 Have There Been Any Changes To Your Family Or Social Situation? No Information not available 03/01/2023 Are There Any Guns Present In Your Home? No [email or web address] Information not available 03/01/2023 Do You Use Insect Repellent Routinely? No Doesn't Go Outside Much [email or web address] Information not available 03/01/2023 [facility] You Live[facility] Information not available 08/20/2024 Do You Have A Medical Power Of Map Compiler? No Information not available 03/01/2023 What Was The [...] Carbon Monoxide Detectors In Your Home? Yes [email or web address] Information not available 03/01/2023 Are You Passively Exposed To Smoke? No Information not available 08/20/2024 Are There Any Smokers In Your House? No Information not available 08/20/2024 How Much Tobacco Do You Smoke? No [id number].0301 [id number] Information not available 06/22/2022 Do You Participate In Social Media? No Information not available 08/20/2024 Do You Use Sunscreen Routinely? No [email or web address] Information not available 03/01/2023 How Many Years Have You Smoked Tobacco? 0 [email or web address] Information not available 03/01/2023 Have You Recently Traveled Abroad? No [email or web address] Information not available 03/01/2023 Do You Have Difficulty Walking Or Climbing Stairs? Yes A Little But Very Cautious Information not available 03/01/2023 Are You Currently In School? No Information not available 08/20/2024 Do You Have Any Dietary Restrictions? No Information not available 08/20/2024 Sex: Unknown Functional Status Question Answer Note LastModified by Organizat ion Details LastModified Time Do you use any illicit or recreational drugs? No Information not available 03/01/2023 Do you or have you ever used any other forms of tobacco or nicotine? No Information not available 03/01/2023 What is your level of alcohol consumption? None [id number].[id number] Information not available 06/22/2022 Do you or have you ever used smokeless tobacco? Never used smokeless tobacco MIGRATION.62182 [id number] Information not available 06/22/2022 Are you currently employed? No retired Information not available 08/20/2024 Do you have transportation difficulties? No [email or web address] Information not available 03/01/2023 Are you able to walk? YESWOREST [email or web address] Information not available 03/01/2023 Do you have difficulty doing errands alone? No Information not available 03/01/2023 Are you able to care for yourself? Yes Information n ot available 03/01/2023 Do you have difficulty dressing or bathing? No [email or web address] Information not available 03/01/2023 Do you or have you ever used e-cigarettes or vape? Never used electronic cigarettes [email or web address] Information not available 03/01/2023 What is your exercise level? Occasional MIGRATION.89171 [id number] Information not available 06/22/2022 Mental Status Question Answer Note LastModified by Organizat ion Details LastModified Time Do you feel stressed (tense, restless, nervous, or anxious, or unable to sleep at night)? [id number] Information not available 08/20/2024 Do you have difficulty concentrating, remembering or making decisions? No [email or web address] Information no t available 03/01/2023 Family History Relationship Description Onset Age of this Age Resolved Age Notes LastModified by Organization Details LastModified Time Mother Diabetes mellitus [id number] [id number] Not available 06/22/2022 22:42:42 Mother Congestive heart [...] SNOMED-CT Code Diagnosis ICD10 Code Diagnosis Note [id number] Gladis Alston MD [facility] Primary Care [facility] [address] [facility] [address] [facility] [place] [address] 09/15/2020 00:00:00 09/17/2020 16:19:48 [id number] EYAD Bazzi [facility] Primary Care [facility] [address] [facility] [address] [place] [address] 10/02/2020 00:00:00 10/02/2020 10:37:04 [id number] Gladis Alston MD [facility] Primary Care [facility] [address] [facility] [address] [place] [address] 01/20/2021 00:00:00 01/20/2021 18:01:59 [id number] Gladis Alston MD [facility] Primary Care [place] [address] [place] [address] 03/24/2021 00:00:00 2021 20:01:39 [id number] ROBERT Verduzco [facility] Primary Care [place] [address] [place] [address] 07/07/2021 00:00:00 07/07/2021 12:25:31 [id number] Gladis Alston MD [facility] Primary Care [place] [address] [place] [address] 07/20/2021 00:00:00 07/20/2021 20:43:33 [id number] Gladis Alston MD [facility] Primary Care [place] [address] [place] [address] 02/10/2022 00:00:00 02/16/2022 11:30:05 [id number] Gladis Alston MD [facility] Primary Care [place] [address] [place] [address] 03/29/2022 00:00:00 03/29/2022 09:35:46 [id number] Gladis Alston MD [facility] Primary Care [place] [address] [place] [address] 06/16/2022 00:00:00 06/16/2022 09:43:15 [id number] Gladis Alston MD [facility] Primary Care [place] [address] [place] [address] 08/30/2022 17:09:02 09/21/2022 14:52:31 Aspiration pneumonia 575660631 J69.0 on mary lourobertestephanialindsayuterols ample given of brereinier monary referral given [id number] Gladis Alston MD [facility] Primary Care [place] [address] [place] [address] 09/28/2022 14:18:38 09/28/2022 15:03:14 [id number] Gladis Alston MD [facility] Primary Care [place] [address] [facility] [address] [place] [address] 03/01/2023 14:04:17 03/01/2023 15:00:38 Adult health examination 854441511 Z00.00 Repeat mammogram due DEXA ordered by endocrinol rajni Declines vaccine at this time check fasting labs No longer needs cervical cancer screen Colonoscop y 08/23/21 no repeat needed Screening for disorder 556268249 Z13.9 Hypothyroidism 74796429 E03.[address] Beal Mammography abnormal 168 481752 R92.8 Essential hypertension 90416750 I10 stablechec k labs Hyperlipidemia 78214967 E78.5 Vitamin D deficiency 347 32967 E55.9 Cobalamin deficiency 190 198587 E53.8 Pain in throat 739457375 R07.0 call/retur n if no improvemen t in 1-2 days or sooner if needed reviewed s/s that warrant urgent/kenneth rgent eval in meantime [id number] Ellis Cai MD [facility] [place] [address] [place] [address] 05/03/2023 10:25:18 05/03/2023 11:34:46 Pain of left ankle joint 7256531677 4448217 M25.572 Closed fra cture of shaft of tibia 53482176 S82. [id number] Ellis Cai MD [facility] [place] [address] [place] [address] 05/12/2023 09:35:36 05/12/2023 10:02:41 Pain of left ankle joint 0737566429 7892472 M25.025 [id number] Ellis Cai MD [facility] [place] [address] [place] [address] 05/24/2023 10:35:54 05/24/2023 11:35:02 Pain of left ankle joint 0923532877 4969464 M25.440 [id number] Ellis Cai MD [facility] [place] [address] [place] [address] 06/21/2023 10:43:52 06/21/2023 11:06:13 Fracture of ankle 00094979 S82.92XA [id number] Ellis Cai MD [facility] [place] [address] [place] [address] 08/02/2023 11:23:37 08/02/2023 11:53:25 Fracture of ankle 66776988 S82.92XA [id number] Gladis Alston MD [facility] Primary Care [place] [address] [facility] [address] [place] [address] 08/22/2023 15:41:00 08/22/2023 16:19:25 Dysphagia 08437988 R13.10 saw GI at in february and scheduled for EGD but had to cancel due to her ankle surgerynee ds EGD reschedule dreferral given [id number] DARCY Soto [facility] [address] [facility] [address] [place] [address] 01/03/2024 11:49:24 01/03/2024 12:53:09 Renewal of prescription 011462517 Z76.0 Will refill meds as listed below. Essential hypertension 80074342 I10 150/78. Goal: 140/90BP is likely due to anxiety and being upset.Will refill meds as listed below. Seasonal allergy 3800830 04 J30.2 [id number] DARCY Soto [facility] Primary Care [place] [address] [facility] [address] [place] [address] 03/06/2024 10:51:27 03/06/2024 12:19:34 Respiratory tract congestion and cough 058681937 R05.9 Will treat as listed below. Patient will follow up as needed. [id number] Ellis Cai MD [address] [address] 04/22/2024 10:01:05 04/22/2024 10:52:23 Pain of left ankle joint 2541965845 1574018 M25.572 Pain of le ft knee joint [id number] 57716 M25.562 Mechanical complication of implant [id number] T85.698A T84.039A [id number] Ellis Cai MD [facility] [place] [address] [place] [address] 05/01/2024 15:30:32 05/01/2024 16:21:20 Pain of multiple joints 44150986 M25.572 Pain of le ft knee joint [id number] 71486 M25.562 Mechanical complication of implant 282409250 T85.698A [id number] DARCY Soto [facility] [place] [address] [place] [address] 05/22/2024 11:53:52 05/22/2024 12:38:13 Respiratory tract congestion and cough 062650654 R05.9 Discussed continuing OTC medication s as needed. [id number] Ellis Cai MD [facility] [place] [address] [place] [address] 07/01/2024 14:03:39 07/01/2024 15:21:42 Pain of left knee joint 2895760065 05968 M25.562 Bilateral osteoarthritis of knees 5991068217 19160 M17.0 [id number] DARCY Soto [facility] [place] [address] [facility] [place] [address] 08/20/2024 09:02:35 08/20/2024 10:06:24 Unable to cut own toenails 822773566 Z74.1 Sore throat 138311939 J0 2.9 Will check labs as listed below. Mammography abnormal 168 333326 R92.8 Was due for follow up in March. Wheezing 12234510 R06.2 lung sounds clear in office. Patient requesting chest x-ray. Generalize d aches and pains 99427921 R52 Patient refuses flu testing. Health Concerns Section Related Observation LastModified by Organization Detai ls LastModified Time None Recorded Concern Status LastModified by Organization Details LastModified Time None Recorded Advance Directives Directive N: Packet of information Payers Encounter Date Sequence Insurance Name Policy Number Policy Jha Covered Member ID Jha Member ID Guarantor Name 04/22/2024 1 [employer] (MEDICARE REPLACEMENT HMO) [id number] [place] [facility] [id number] Idania M Brimm 05/01/2024 1 [employer] (MEDICARE REPLACEMENT HMO) [id number] [place] [facility] [id number] Idania M Brimm 05/22/2024 1 [employer] (MEDICARE REPLACEMENT HMO) [id number] [place] [facility] [id number] [place] M [facility]imm 07/01/2024 1 [employer] (MEDICARE REPLACEMENT HMO) [id number] Idania M Brimm [id number] [facility] 08/20/2024 1 [employer] (MEDICARE REPLACEMENT HMO) [id number] Idania M Brimm [id number] Idania M Brimm Notes Date Note Type Note Provider Name and Address Organization Details Recorded Time 05/22/2024 text/html Patient is a 79 year old female that presents to the office ambulatory with chaim, for initially for Medicare Wellness however after chart review patient had Medicare Wellness completed by Farhana Gr (Family Medicine) at [facility] in February.Discussed with patient that she could [...] Mucinex and Zyrtec which helps with symptoms. EYAD Soto-Shanda [address] [place] [address], [facility] [address], [place], [address], [place] - [facility] 05/22/2024 12:39:44 08/20/2024 text/html Patient is a [...] of breath at this time. Eduardo Bradford, ASSISTANT PROGRAM MANAGER-C [address] [facility] [address], [place], [address], [facility] 08/20/2024 10:06:35 OBGyn Episode No OBEpisode recorded.
--- OUTSIDE RECORDS SUMMARY | 2024-09-10 11:11 | XMS_ITS | CONTINUITY OF CARE DOCUMENT ---
Author Name triston goldstein Address Unknown Organization [facility] Address [address] [place] [address] Phone [phone] Care Team Providers Care Ice Cream Dipper Name Role Phone Francine Wilks MD Unavailable [phone] Francine Wilks MD Unavailable INSURANCE PROVIDERS Payer name Policy type / Coverage type [place] red green party ID AETNA MEDICARE GOLD ADVANTAGE HMO Medicare [id number]
--- OUTSIDE RECORDS SUMMARY | 2024-09-10 11:11 | XMS_ITS | Continuity of Care Document ---
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 [address] [facility] , [address], [place], [address], [place]. tel:[phone] Office/outpat ient Visit, [facility] [address], [place], [place], [address], [place] tel:[phone] SEC [facility] Corporate Center No Information Apr-2 1-200 9 Krishnasamy Branden. [address] [facility] [address], [place], [address], [place]. tel:[phone] Office/outpat ient Visit, [facility], [address], [place], [place], [address], [place] tel:[phone] [facility] No Information Oct-2 1-200 8 Krishnasamy Branden. [address] [facility] [address], [place], [place], [facility], [place]. tel:[phone] Office/outpat ient [facility], [facility], [address], [place], [place], [address], [place] tel:[phone] [facility] [place] No Information Sep-1 6-200 8 Krishnasamy Branden. [address] [facility] [address], [place], [place], [facility], [place]. tel:[phone] [facility], [address], [place], [place], [address], [place] tel:[phone] [facility] No Information Sep-0 9-200 8 Krishnasamy Branden. [facility] [address], [place], [place], [facility], [place]. tel:[phone] [facility]pat ient [facility], [facility], [address], [place], [place], [address], [place] tel:[phone] [facility] [place] No Information Sánchez-2 1-200 8 Krishnasamy Branden. [address] [facility] [address], [place], [address], [place]. tel:[phone] [facility], [address], [place], [place], [address], [place] tel:[phone] [facility] No Information Oct-1 4-200 8 Krishnasamy Branden. [address] [facility] [place] [address], [place], [address], [place]. tel:[phone] Office/outpat ient Visit, [facility], [address], [place], [place], [address], [place] tel:[phone] [facility] No Information May-0 2-200 8 Doisy Edward. [address] [facility] [place] , [address], [place], [facility], [place]. tel:[phone] Office/outpat ient Visit, [facility], [address], [place], [place], [address], [place] tel:[phone] [facility] [place] No Information Apr-2 5-200 8 Doisy Edward. [facility] , [address], [place], [facility], [place]. tel:[phone] [facility], [address], [place], [place], [address], [place] tel:[phone] [facility] [place] No Information Apr-2 2-200 8 Krishnasamy Branden. [facility] [address], [place], [facility], [place]. tel:[phone] Office/outpat ient Visit, [facility], [address], [place], [place], [address], [place] tel:[phone] [facility] No Information Nov-2 7-200 7 Rafat Bowles. [address], [place], [place], [address], [place]. tel:[phone] [address] [facility], [address], [place], [place], [address], [place] tel:[phone] SEC [facility] [place] No Information 2 0-200 7 Rafat Bowles. [address], [facility] [place], [place], [address], . tel:[phone] Office/outpat ient Visit, [facility], [address], [place], [place], [address], [place] tel:[phone] SEC [facility] [place] No Information 3 0-200 7 Rafat Bowles. [address], [facility] A, [place], [place], [address], [place]. tel:[phone] Family History Family Member Type Diagnosis Age At Onset No Information Payers Payer name Insurance type Covered green party ID Authoriza tion(s) No Information Social [...]
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
== END 2024-09-10 11:00 | disposition home or self-care (01) ==
PROVIDERS: PCP Nurse Practitioner Family; Visit Provider Nurse Practitioner Family
DX: R92.1 Mammographic calcification found on diagnostic imaging of breast (principal)
CPT/HCPCS: 77062; 77066; G0279